=== PATIENT | male | born 1955 | race Caucasian/White ===

== ENCOUNTER 2023-02-20 15:27 | Outpatient (OUT) | payer MEDICARE, SELFPAY ==
[2023-02-20 16:12] LABS: Basophils Percent Auto 0.6 % (0.2-2.0); Eosinophils Absolute Auto 0.1 10^3/uL (0.0-0.7); Eosinophils Percent Auto 1.7 % (0.9-7.0); Hematocrit 40.8 % (42.0-54.0); Hemoglobin 14.1 g/dL (14.0-18.0); Immature Granulocytes Abs Auto 0.01 10^3/uL (0.00-0.03); Immature Granulocytes Pct Auto 0.3 % (0.0-0.5); Lymphocytes Absolute Auto 0.8 10^3/uL (1.2-3.8); Lymphocytes Percent Auto 23.4 % (20.5-60.0); Mean Corpuscular HGB Conc 34.6 g/dL (29.9-35.2); Mean Corpuscular Hemoglobin 32.1 pg (25.9-34.0); Mean Corpuscular Volume 92.9 fL (80.0-94.0); Mean Platelet Volume 9.2 fL (9.5-13.5); Monocytes Absolute Auto 0.3 10^3/uL (0.3-0.8); Monocytes Percent Auto 7.1 % (1.7-12.0); Neutrophils Absolute Auto 2.4 10^3/uL (1.4-6.5); Neutrophils Percent Auto 66.9 % (43.0-75.0); Platelet Count 122 10^3/uL (150-450); Red Blood Count 4.39 10^6/uL (4.70-6.10); Red Cell Distribution Width 13.2 % (11.0-15.0); White Blood Count 3.5 10^3/uL (4.0-11.0)
[2023-02-20 16:40] LABS: Anion Gap 13.3; BUN Creatinine Ratio 17.6; Calcium 9.2 mg/dL (8.5-10.1); Chloride 105 mmol/L (98-107); Estimated GFR (African America >60 (>=60); Estimated GFR (Non-African Ame >60 (>=60); Glucose 113 mg/dL (74-106); Potassium 4.3 mmol/L (3.5-5.1); Sodium 139 mmol/L (136-145)
[2023-02-20 16:57] LABS: Prostate Specific Antigen Scrn 1.01 ng/mL (<=4.00)
== END 2023-02-20 15:28 | disposition home or self-care (01) ==
LOC: LAB 15:32
PROVIDERS: PCP Internal Medicine; Visit Provider Internal Medicine
DX: Z00.00 Encounter for general adult medical examination without abnormal findings (principal); Z12.5 Encounter for screening for malignant neoplasm of prostate; Z79.899 Other long term (current) drug therapy
CPT/HCPCS: 36415; 80048; 85025; G0103

== ENCOUNTER 2023-06-10 13:54 | Outpatient (OUT) | payer MEDICARE, SELFPAY ==
[2023-06-10 14:20] LABS: Basophils Percent Auto 0.7 % (0.2-2.0); Eosinophils Absolute Auto 0.1 10^3/uL (0.0-0.7); Eosinophils Percent Auto 1.3 % (0.9-7.0); Hematocrit 41.4 % (42.0-54.0); Hemoglobin 14.2 g/dL (14.0-18.0); Immature Granulocytes Abs Auto 0.01 10^3/uL (0.00-0.03); Immature Granulocytes Pct Auto 0.2 % (0.0-0.5); Lymphocytes Percent Auto 22.1 % (20.5-60.0); Mean Corpuscular HGB Conc 34.3 g/dL (29.9-35.2); Mean Corpuscular Hemoglobin 32.5 pg (25.9-34.0); Mean Corpuscular Volume 94.7 fL (80.0-94.0); Mean Platelet Volume 8.9 fL (9.5-13.5); Monocytes Absolute Auto 0.3 10^3/uL (0.3-0.8); Monocytes Percent Auto 6.8 % (1.7-12.0); Neutrophils Absolute Auto 3.1 10^3/uL (1.4-6.5); Neutrophils Percent Auto 68.9 % (43.0-75.0); Platelet Count 156 10^3/uL (150-450); Red Blood Count 4.37 10^6/uL (4.70-6.10); Red Cell Distribution Width 12.4 % (11.0-15.0); White Blood Count 4.5 10^3/uL (4.0-11.0)
== END 2023-06-10 13:55 | disposition home or self-care (01) ==
LOC: LAB 13:55
PROVIDERS: PCP Internal Medicine; Visit Provider Internal Medicine
DX: D69.6 Thrombocytopenia, unspecified (principal)
CPT/HCPCS: 36415; 85025

== ENCOUNTER 2023-10-10 13:39 | Outpatient (OUT) | payer MEDICARE, SELFPAY ==
[2023-10-10 14:14] LABS: Eosinophils Absolute Auto 0.1 10^3/uL (0.0-0.7); Hematocrit 42.4 % (42.0-54.0); Hemoglobin 14.2 g/dL (14.0-18.0); Immature Granulocytes Abs Auto 0.01 10^3/uL (0.00-0.03); Immature Granulocytes Pct Auto 0.2 % (0.0-0.5); Lymphocytes Percent Auto 24.6 % (20.5-60.0); Mean Corpuscular HGB Conc 33.5 g/dL (29.9-35.2); Mean Corpuscular Hemoglobin 31.7 pg (25.9-34.0); Mean Corpuscular Volume 94.6 fL (80.0-94.0); Monocytes Absolute Auto 0.3 10^3/uL (0.3-0.8); Monocytes Percent Auto 6.6 % (1.7-12.0); Neutrophils Absolute Auto 2.7 10^3/uL (1.4-6.5); Neutrophils Percent Auto 65.6 % (43.0-75.0); Platelet Count 130 10^3/uL (150-450); Red Blood Count 4.48 10^6/uL (4.70-6.10); Red Cell Distribution Width 13.2 % (11.0-15.0); White Blood Count 4.1 10^3/uL (4.0-11.0)
[2023-10-10 14:44] LABS: Thyroid Stimulating Hormone 1.282 uIU/mL (0.358-3.740)
[2023-10-10 15:27] LABS: Alanine Aminotransferase 38 U/L (16-63); Albumin Globulin Ratio 1.1; Albumin Level 3.9 g/dL (3.4-5.0); Alkaline Phosphatase 81 U/L (46-116); Anion Gap 17.4; Aspartate Amino Transferase 17 U/L (15-37); Bilirubin Total 0.6 mg/dL (0.2-1.0); Calcium 9.1 mg/dL (8.5-10.1); Carbon Dioxide 22.8 mmol/L (21.0-32.0); Chloride 109 mmol/L (98-107); Estimated GFR (African America >60 (>=60); Estimated GFR (Non-African Ame >60 (>=60); Globulin 3.6 g/dL; Glucose 115 mg/dL (74-106); Potassium 4.2 mmol/L (3.5-5.1); Sodium 145 mmol/L (136-145); Total Protein 7.5 g/dL (6.4-8.2)
[2023-10-11 16:09] LABS: Alpha-1-Globulin 0.2 g/dL (0.0-0.4); Alpha-2-Globulin 0.7 g/dL (0.4-1.0); Free Kappa Lt Chains,S 23.8 mg/L (3.3-19.4); Free Lambda Lt Chains,S 15.2 mg/L (5.7-26.3); Gamma Globulin 0.8 g/dL (0.4-1.8); Immunoglobulin A, Qn, Serum 215 mg/dL (61-437); Immunoglobulin G, Qn, Serum 976 mg/dL (603-1613); Immunoglobulin M, Qn, Serum 31 mg/dL (20-172); Kappa/Lambda Ratio,S 1.57 (0.26-1.65); Protein, Total 6.7 g/dL (6.0-8.5)
== END 2023-10-10 13:40 | disposition home or self-care (01) ==
LOC: LAB 13:44
PROVIDERS: PCP Internal Medicine; Visit Provider Internal Medicine
DX: D69.6 Thrombocytopenia, unspecified (principal); R20.8 Other disturbances of skin sensation; Z79.899 Other long term (current) drug therapy; R53.83 Other fatigue
CPT/HCPCS: 36415; 80053; 82607; 82728; 82784; 83521; 84155; 84165; 84443; 85025; 86334

== ENCOUNTER 2023-10-28 13:54 | Outpatient (OUT) | payer MEDICARE, SELFPAY ==
[2023-10-28 14:24] LABS: Basophils Percent Auto 0.5 % (0.2-2.0); Eosinophils Absolute Auto 0.1 10^3/uL (0.0-0.7); Eosinophils Percent Auto 1.4 % (0.9-7.0); Hematocrit 42.8 % (42.0-54.0); Hemoglobin 14.5 g/dL (14.0-18.0); Immature Granulocytes Abs Auto 0.02 10^3/uL (0.00-0.03); Immature Granulocytes Pct Auto 0.5 % (0.0-0.5); Lymphocytes Absolute Auto 0.9 10^3/uL (1.2-3.8); Lymphocytes Percent Auto 21.4 % (20.5-60.0); Mean Corpuscular HGB Conc 33.9 g/dL (29.9-35.2); Mean Corpuscular Hemoglobin 31.5 pg (25.9-34.0); Mean Corpuscular Volume 92.8 fL (80.0-94.0); Monocytes Absolute Auto 0.3 10^3/uL (0.3-0.8); Monocytes Percent Auto 6.9 % (1.7-12.0); Neutrophils Absolute Auto 2.9 10^3/uL (1.4-6.5); Neutrophils Percent Auto 69.3 % (43.0-75.0); Platelet Count 126 10^3/uL (150-450); Red Blood Count 4.61 10^6/uL (4.70-6.10); Red Cell Distribution Width 13.2 % (11.0-15.0); White Blood Count 4.2 10^3/uL (4.0-11.0)
[2023-10-28 14:41] LABS: C Reactive Protein <0.50 mg/dL (<=0.50)
[2023-10-28 14:46] LABS: Erythrocyte Sedimentation Rate 27 mm/hr (<=20)
[2023-10-28 15:08] LABS: Percent Iron Saturation 36.9 %
[2023-10-29 16:09] LABS: Alpha-1-Globulin 0.2 g/dL (0.0-0.4); Alpha-2-Globulin 0.7 g/dL (0.4-1.0); Free Kappa Lt Chains,S 24.1 mg/L (3.3-19.4); Free Lambda Lt Chains,S 14.7 mg/L (5.7-26.3); Gamma Globulin 0.8 g/dL (0.4-1.8); Immunoglobulin A, Qn, Serum 219 mg/dL (61-437); Immunoglobulin G, Qn, Serum 927 mg/dL (603-1613); Immunoglobulin M, Qn, Serum 34 mg/dL (20-172); Kappa/Lambda Ratio,S 1.64 (0.26-1.65); Protein, Total 6.8 g/dL (6.0-8.5)
== END 2023-10-28 13:55 | disposition home or self-care (01) ==
LOC: LAB 13:54
PROVIDERS: PCP Internal Medicine; Visit Provider Internal Medicine
DX: R79.89 Other specified abnormal findings of blood chemistry (principal); D69.6 Thrombocytopenia, unspecified; R20.8 Other disturbances of skin sensation; Z79.899 Other long term (current) drug therapy; R53.83 Other fatigue
CPT/HCPCS: 36415; 82728; 82784; 83521; 83540; 83550; 84155; 84165; 85025; 85652; 86140; 86334

== ENCOUNTER 2023-11-15 07:24 | Outpatient (RCR) | payer MEDICARE, SELFPAY ==
[2023-11-12 15:49] LABS: Basophils Percent Auto 0.5 % (0.2-2.0); Hematocrit 43.8 % (42.0-54.0); Hemoglobin 14.7 g/dL (14.0-18.0); Immature Granulocytes Abs Auto 0.03 10^3/uL (0.00-0.03); Immature Granulocytes Pct Auto 0.8 % (0.0-0.5); Lymphocytes Absolute Auto 0.9 10^3/uL (1.2-3.8); Lymphocytes Percent Auto 21.4 % (20.5-60.0); Mean Corpuscular HGB Conc 33.6 g/dL (29.9-35.2); Mean Corpuscular Hemoglobin 31.7 pg (25.9-34.0); Mean Corpuscular Volume 94.4 fL (80.0-94.0); Mean Platelet Volume 8.9 fL (9.5-13.5); Monocytes Absolute Auto 0.3 10^3/uL (0.3-0.8); Monocytes Percent Auto 6.5 % (1.7-12.0); Neutrophils Absolute Auto 2.8 10^3/uL (1.4-6.5); Neutrophils Percent Auto 69.8 % (43.0-75.0); Platelet Count 126 10^3/uL (150-450); Red Blood Count 4.64 10^6/uL (4.70-6.10); Red Cell Distribution Width 13.2 % (11.0-15.0)
[2023-11-12 16:30] LABS: Lactate Dehydrogenase 240 U/L (85-227)
[2023-11-14 16:10] LABS: Albumin 4.1 g/dL (2.9-4.4); Alpha-1-Globulin 0.2 g/dL (0.0-0.4); Alpha-2-Globulin 0.7 g/dL (0.4-1.0); Free Lambda Lt Chains,S 14.2 mg/L (5.7-26.3); Gamma Globulin 0.8 g/dL (0.4-1.8); Immunoglobulin A, Qn, Serum 220 mg/dL (61-437); Immunoglobulin G, Qn, Serum 961 mg/dL (603-1613); Immunoglobulin M, Qn, Serum 29 mg/dL (20-172); Kappa/Lambda Ratio,S 1.69 (0.26-1.65); Protein, Total 6.9 g/dL (6.0-8.5)
[2023-11-15 10:02] VITALS: BP 145/79; PULSE 73; RESP 18; TEMP 36.3; O2SAT 97
--- NOTE | 2023-11-15 10:08 | PC.NURSE ---
0950 Arrival ambulatory, vital signs obtained. explained procedure, verbalizes understanding 1005 phlebotomy initiated RACF 1020 500 ml obtained without difficulty, tolerated well. cottonball and coban applied to venipuncture site. 1021 given water and crackers post phlebotomy, vs obtainned 119/82 P 76 R 18 offers no complaints.
--- NOTE | 2023-11-15 10:41 | PC.NURSE ---
1040 stands, ambulates, denies dizziness/light headedness. Released ambulatory
== END 2023-11-24 23:59 | disposition home or self-care (01) ==
LOC: INF 07:24
PROVIDERS: PCP Internal Medicine; Visit Provider Internal Medicine Hematology & Oncology
DX: D69.6 Thrombocytopenia, unspecified (principal); R79.89 Other specified abnormal findings of blood chemistry; E83.119 Hemochromatosis, unspecified; Z87.891 Personal history of nicotine dependence; I48.91 Unspecified atrial fibrillation; K21.9 Gastro-esophageal reflux disease without esophagitis
CPT/HCPCS: 36415; 81256; 82784; 83521; 83615; 84155; 84165; 85025; 86334; 99195; G0463

== ENCOUNTER 2023-12-05 08:37 | Outpatient (OUT) | payer MEDICARE, SELFPAY | END 2023-12-05 08:38 | disposition home or self-care (01) | LOC: LAB 08:37 | PROVIDERS: PCP Internal Medicine; Visit Provider Internal Medicine Hematology & Oncology | DX: R79.89 Other specified abnormal findings of blood chemistry (principal); D69.6 Thrombocytopenia, unspecified | CPT/HCPCS: 36415; 82728; 83540; 83550 ==

== ENCOUNTER 2023-12-20 07:34 | Outpatient (RCR) | payer MEDICARE, SELFPAY ==
[2023-12-06 09:50] VITALS: BP 123/70; PULSE 67; TEMP 37.1; O2SAT 98
[2023-12-06 10:14] VITALS: BP 100/65; PULSE 66; TEMP 37.1; O2SAT 98
[2023-12-06 11:05] VITALS: BP 101/66; PULSE 68; TEMP 36.9; O2SAT 97
--- NOTE | 2023-12-06 12:40 | PC.NURSE ---
0950: Pt. to [facility] amb. for scheduled therapeutic phlebotomy. Seated in recliner. VSS. Denies questions about T.P.
--- NOTE | 2023-12-06 13:19 | PC.NURSE ---
1003: #16 gauge IV initiated to left ac on first attempt. Connected too dry collection bag. Blood immediately begins to drain easily into bag. Pt. given ball to squeeze intermittently. 1014: 502 cc blood collected into dry bag. IV d/c'd, pressure to site. Pt. relays feeling woosy . Reclines back in chair. Given apple juice and snack. 1030: Pt. cont. to rest quietly in chair. Ate snack. Denies needs or c/o. 1105: Pt. without c/o. VSS. D/c'd amb. to home.
[2023-12-10 12:04] LABS: Basophils Percent Auto 0.8 % (0.2-2.0); Eosinophils Absolute Auto 0.1 10^3/uL (0.0-0.7); Eosinophils Percent Auto 1.4 % (0.9-7.0); Hematocrit 37.1 % (42.0-54.0); Hemoglobin 12.2 g/dL (14.0-18.0); Immature Granulocytes Abs Auto 0.02 10^3/uL (0.00-0.03); Immature Granulocytes Pct Auto 0.6 % (0.0-0.5); Lymphocytes Absolute Auto 1.1 10^3/uL (1.2-3.8); Lymphocytes Percent Auto 30.1 % (20.5-60.0); Mean Corpuscular HGB Conc 32.9 g/dL (29.9-35.2); Mean Corpuscular Hemoglobin 31.4 pg (25.9-34.0); Mean Corpuscular Volume 95.6 fL (80.0-94.0); Mean Platelet Volume 9.4 fL (9.5-13.5); Monocytes Absolute Auto 0.2 10^3/uL (0.3-0.8); Monocytes Percent Auto 5.8 % (1.7-12.0); Neutrophils Absolute Auto 2.2 10^3/uL (1.4-6.5); Neutrophils Percent Auto 61.3 % (43.0-75.0); Platelet Count 130 10^3/uL (150-450); Red Blood Count 3.88 10^6/uL (4.70-6.10); Red Cell Distribution Width 13.2 % (11.0-15.0); White Blood Count 3.6 10^3/uL (4.0-11.0)
[2023-12-10 12:30] LABS: Alanine Aminotransferase 33 U/L (16-63); Albumin Globulin Ratio 1.2; Albumin Level 3.9 g/dL (3.4-5.0); Alkaline Phosphatase 74 U/L (46-116); Anion Gap 15.7; Aspartate Amino Transferase 18 U/L (15-37); BUN Creatinine Ratio 13.4; Bilirubin Total 0.7 mg/dL (0.2-1.0); Calcium 9.1 mg/dL (8.5-10.1); Carbon Dioxide 23.3 mmol/L (21.0-32.0); Chloride 106 mmol/L (98-107); Estimated GFR (African America >60 (>=60); Estimated GFR (Non-African Ame >60 (>=60); Globulin 3.2 g/dL; Glucose 125 mg/dL (74-106); Sodium 141 mmol/L (136-145); Total Protein 7.1 g/dL (6.4-8.2)
[2023-12-20 13:27] VITALS: BP 115/74; PULSE 63; TEMP 36.6; O2SAT 95
[2023-12-20 13:34] LABS: Percent Iron Saturation 31.6 %
== END 2023-12-24 23:59 | disposition home or self-care (01) ==
LOC: INF 07:34
PROVIDERS: PCP Internal Medicine; Visit Provider Internal Medicine Hematology & Oncology
DX: E83.119 Hemochromatosis, unspecified (principal); R79.89 Other specified abnormal findings of blood chemistry; D69.6 Thrombocytopenia, unspecified
CPT/HCPCS: 36415; 80053; 82728; 83540; 83550; 85025; 99195; G0463

== ENCOUNTER 2024-01-17 07:25 | Outpatient (RCR) | payer MEDICARE, SELFPAY ==
[2024-01-03 12:10] VITALS: BP 107/70; PULSE 63; TEMP 36.8; O2SAT 95
[2024-01-03 12:49] LABS: Percent Iron Saturation 28.9 %
--- NOTE | 2024-01-03 13:39 | PC.NURSE ---
1315 ferratin levels received from lab. 1318 phlebotomy initiated thru rac #14 ga IV catheter 1329 Total of 500 ml removed during phlebotomy, patient drinking fluids and snacking since arrival. 1330 IV dc'dRACF, cottonball and coban applied to control any bleeding. Tolerated well post phlebotomy vs Bp 113/73 p 63 R 18 T 98.1 temporal. 1345 eating snack and drinking fluids. Labs reviewed with patient copy to patient.
[2024-01-07 14:51] LABS: Basophils Percent Auto 0.5 % (0.2-2.0); Eosinophils Absolute Auto 0.1 10^3/uL (0.0-0.7); Eosinophils Percent Auto 1.6 % (0.9-7.0); Hematocrit 35.8 % (42.0-54.0); Immature Granulocytes Abs Auto 0.02 10^3/uL (0.00-0.03); Immature Granulocytes Pct Auto 0.5 % (0.0-0.5); Lymphocytes Absolute Auto 0.7 10^3/uL (1.2-3.8); Lymphocytes Percent Auto 18.6 % (20.5-60.0); Mean Corpuscular HGB Conc 33.5 g/dL (29.9-35.2); Mean Corpuscular Hemoglobin 32.2 pg (25.9-34.0); Mean Platelet Volume 8.9 fL (9.5-13.5); Monocytes Absolute Auto 0.3 10^3/uL (0.3-0.8); Monocytes Percent Auto 7.6 % (1.7-12.0); Neutrophils Absolute Auto 2.7 10^3/uL (1.4-6.5); Neutrophils Percent Auto 71.2 % (43.0-75.0); Platelet Count 127 10^3/uL (150-450); Red Blood Count 3.73 10^6/uL (4.70-6.10); Red Cell Distribution Width 13.4 % (11.0-15.0); White Blood Count 3.8 10^3/uL (4.0-11.0)
[2024-01-17 12:00] VITALS: BP 119/78; PULSE 68; TEMP 36.4; O2SAT 97
[2024-01-17 12:12] LABS: Basophils Percent Auto 0.5 % (0.2-2.0); Eosinophils Absolute Auto 0.1 10^3/uL (0.0-0.7); Eosinophils Percent Auto 1.4 % (0.9-7.0); Hematocrit 36.9 % (42.0-54.0); Hemoglobin 12.3 g/dL (14.0-18.0); Immature Granulocytes Abs Auto 0.03 10^3/uL (0.00-0.03); Immature Granulocytes Pct Auto 0.8 % (0.0-0.5); Lymphocytes Absolute Auto 0.9 10^3/uL (1.2-3.8); Lymphocytes Percent Auto 25.2 % (20.5-60.0); Mean Corpuscular HGB Conc 33.3 g/dL (29.9-35.2); Mean Corpuscular Hemoglobin 31.9 pg (25.9-34.0); Mean Corpuscular Volume 95.8 fL (80.0-94.0); Mean Platelet Volume 8.9 fL (9.5-13.5); Monocytes Absolute Auto 0.3 10^3/uL (0.3-0.8); Neutrophils Absolute Auto 2.4 10^3/uL (1.4-6.5); Neutrophils Percent Auto 65.1 % (43.0-75.0); Platelet Count 126 10^3/uL (150-450); Red Blood Count 3.85 10^6/uL (4.70-6.10); Red Cell Distribution Width 13.3 % (11.0-15.0); White Blood Count 3.7 10^3/uL (4.0-11.0)
[2024-01-17 12:32] LABS: Percent Iron Saturation 30.8 %
--- NOTE | 2024-01-17 12:43 | PC.NURSE ---
1200: Pt. to [facility] amb. for therapeutic phlebotomy. Seated in recliner. VSS. Blood drawn for ordered labs. Pt. relaxes back in recliner waiting for lab results. Given water. Denies needs.
[2024-01-17 13:25] VITALS: BP 132/70; PULSE 58; O2SAT 96
--- NOTE | 2024-01-17 13:35 | PC.NURSE ---
1300: Ferritin resulted, ok to proceed with therapeutic phlebotomy per. ordered parameters. 1310: Therapeutic phlebotomy initiated at this time. per. Fatmata Davies RN using #16 gauge IV. Blood flowing easily. 1325: Blood ceases flowing easily, small raised, hard area observed at insertion site of iv. Pt. relays wanting to stop anyway due to feeling out of it last time. 326cc of blood removed. VSS. 1330: Pt. given piece of pie and water. Pt. mid fowlers position.
[2024-01-17 13:55] VITALS: BP 134/62; PULSE 61; O2SAT 98
--- NOTE | 2024-01-17 13:55 | PC.NURSE ---
Pt. ate pie without c/o n/v. VSS. Relays feeling ok, just tired. Instructed pt. to take it easy today and rest with plenty of fluids. Pt. relays understanding.
--- NOTE | 2024-01-17 14:34 | PC.NURSE ---
1410: Pt. d/c'd amb. to home.
== END 2024-01-24 23:59 | disposition home or self-care (01) ==
LOC: INF 07:25
PROVIDERS: PCP Internal Medicine; Visit Provider Internal Medicine Hematology & Oncology
DX: E83.119 Hemochromatosis, unspecified (principal); R79.89 Other specified abnormal findings of blood chemistry; D69.6 Thrombocytopenia, unspecified; Z87.891 Personal history of nicotine dependence
CPT/HCPCS: 36415; 82728; 83540; 83550; 85025; 99195; G0463

== ENCOUNTER 2024-02-14 07:18 | Outpatient (RCR) | payer MEDICARE, SELFPAY ==
[2024-01-30 16:02] LABS: Percent Iron Saturation 25.9 %
--- NOTE | 2024-01-31 14:25 | PC.NURSE ---
1255 Arrival ambulatory to chair 3. patient states he has been feeling terrible, states he feels foggy in his head all the time at times over last several months feels as though he is going to pass out relates to this happening frequently as well as he said he finds himself walking around at different places and doesn't know how he go there etc. Numerous other concerns regarding his health. he states I was drinking a cup of coffee because I heard it is good for lowering iron, but states some of these symptoms started after he started drinking coffee, so he stopped. Explained to him he needs to make appt with his PCP to get his concerns addressed, I stressed the need for him to follow-up with regularly scheduled doctors appts to get his concerns addressed, explained some conditions require a more indepth investigation, and he had to be the one to follow and be consistent with approching physicians to get his concerns met. VS obtained. #16 ga IV initiated per Elian x2 attempts unsucessfull. 1315 # 16gauge initiated RACF excellent blood return noted. phlebotomy initiated. 1325 phlebotomy completed, 500 ml obtained. BP 110/74 T 98.2 P 63 R 18. Given water to drink, declines food. 1340 113/74 P 67 R 16 T 98.0 temporal Spo2 95% on room air. Patient voicing many conerns about health and finances, stating he's getting bills from the hospital he cannot afford. called patient financial serices, who will come down and speak with patient. Patient denies light headedness gait steady, ambulated around treatment area. Encouraged patient to make appt with PCP to discuss concerns, if he felt he needed to be seen then he should go to the Emergency department. vervbalizes understanding 1400 Financial staff in and speaks with patient. completed a financial assistance form, patient stated he felt better after speaking with them about his finances. 1410 Discharged ambulatory, gait steady
[2024-02-13 15:21] LABS: Basophils Percent Auto 0.5 % (0.2-2.0); Eosinophils Absolute Auto 0.1 10^3/uL (0.0-0.7); Eosinophils Percent Auto 1.4 % (0.9-7.0); Hematocrit 39.3 % (42.0-54.0); Immature Granulocytes Abs Auto 0.01 10^3/uL (0.00-0.03); Immature Granulocytes Pct Auto 0.3 % (0.0-0.5); Lymphocytes Absolute Auto 0.8 10^3/uL (1.2-3.8); Lymphocytes Percent Auto 21.4 % (20.5-60.0); Mean Corpuscular HGB Conc 33.1 g/dL (29.9-35.2); Mean Corpuscular Volume 93.6 fL (80.0-94.0); Mean Platelet Volume 9.2 fL (9.5-13.5); Monocytes Absolute Auto 0.3 10^3/uL (0.3-0.8); Neutrophils Absolute Auto 2.6 10^3/uL (1.4-6.5); Neutrophils Percent Auto 69.4 % (43.0-75.0); Platelet Count 143 10^3/uL (150-450); Red Cell Distribution Width 12.8 % (11.0-15.0); White Blood Count 3.7 10^3/uL (4.0-11.0)
[2024-02-13 16:17] LABS: Percent Iron Saturation 19.1 %
== END 2024-02-23 23:59 | disposition home or self-care (01) ==
LOC: INF 07:18
PROVIDERS: PCP Internal Medicine; Visit Provider Internal Medicine Hematology & Oncology
DX: E83.119 Hemochromatosis, unspecified (principal); R79.89 Other specified abnormal findings of blood chemistry; D69.6 Thrombocytopenia, unspecified; D72.819 Decreased white blood cell count, unspecified; D64.9 Anemia, unspecified
CPT/HCPCS: 36415; 82728; 83540; 83550; 85025; 99195

== ENCOUNTER 2024-02-25 07:39 | Outpatient (RCR) | payer MEDICARE, SELFPAY | END 2024-02-25 14:45 | disposition home or self-care (01) | LOC: INF 07:39 | PROVIDERS: PCP Internal Medicine; Visit Provider Internal Medicine Hematology & Oncology | DX: R79.89 Other specified abnormal findings of blood chemistry (principal); D69.6 Thrombocytopenia, unspecified; E83.119 Hemochromatosis, unspecified; D72.819 Decreased white blood cell count, unspecified; D64.9 Anemia, unspecified; Z12.5 Encounter for screening for malignant neoplasm of prostate; E78.00 Pure hypercholesterolemia, unspecified; R73.01 Impaired fasting glucose; G62.9 Polyneuropathy, unspecified | CPT/HCPCS: 36415; 80053; 80061; 83036; G0103; G0463 ==

== ENCOUNTER 2024-02-25 13:57 | Outpatient (OUT) | payer MEDICARE, SELFPAY ==
--- OUTSIDE RECORDS SUMMARY | 2024-02-25 14:01 | XMS_ITS | CCD ---
Author Organization [facility] Care Team Providers Care Rfid Technician Name Role Phone JOE, DR SHORT Primary Care Unavailable REQUEST, DR STREETER LISTED Attending Unavaila ble REQUEST, DR STREETER LISTED Consulting Unavaila ble REQUEST, DR STREETER LISTED Admitting Unavaila ble BALL, DR SHORT Primary Care Unavailable BALL, DR SHORT Admitting Unavailable BALL, DR SHORT Attending Unavailable BALL, DR SHORT Consulting Unavailable BALL, DR SHORT Primary Care Unavailable BALL, DR SHORT Admitting Unavailable BALL, DR SHORT Attending Unavailable BALL, DR SHORT Consulting Unavailable Ball, Han Unavailable Peggy Rivas Attending Peggy Lugo Admitting Unavailable Joe, Han Primary Care Unavailable Joe, DO Short Primary Care Provider [phone] MD Peggy Rivas Attending Provider Allergies Allergy Classification Reported Allergen(s) Allergy Type Date of Onset Reaction(s) Facility (6 sources) Penicillin Drug Allergy Unknown [facility] Other (3 sources) patient allergy list reviewed by nurse or physicia Propensity to adverse reactions 12-24-19 Comment:Done [facility] Other (3 sources) Substance with penicillin structure and antibacterial mechanism of action (substance) Drug allergy Unknown [facility] Other (1 source) Penicillins Drug allergy (disorder) 10-30-19 24 [facility] Repository Medications Current Medications Medication Drug Class(es) Dates Sig (Normalized) Sig (Original) sertraline 100 mg oral tablet (10 sources) Serotonin Reuptake Inhibitor Start: 11-24-2023 End: 02-20-2024 take 200 mg by mouth once daily Sertraline Active 200 MG PO Daily 180 90 February 20, 2024 10:11am Start: 10-29-2023 End: 03-31-2024 take 100 mg by mouth twice daily Sertraline Discontinued 100 MG PO Twice daily October 29, 2023 1:00am November 24, 2023 7:58pm take 2 tablets by mo uth every twenty-four hours Sertraline HCl 100 MG 2 tablet Orally qd for 30 days Good RX Active take 1 tablet by faina th every twelve hours Sertraline HCl 100 MG 1 tablet Orally twice a day for 30 days Good RX Active Problems Active Problems Problem Classification Problem Date Documented Da te Episodic/Chronic Anxiety disorders (16 sources) Generalized anxiety disorder; Translations: [Generalized anxiety disorder] Chronic Coagulation and hemorrhagic disorders (14 sources) Thrombocytopenia, unspecified; Translations: [Thrombocytopenic disorder] Onset: 02-09-2022 Chronic Deficiency and other anemia (3 sources) Anemia; Translations: [Anemia, unspecified] Episodic Diabetes mellitus without complication (4 sources) Impaired fasting glycemia; Translations: [Impaired fasting glucose] 10-28-2023 Episodic Disorders of lipid metabolism (1 source) Hypercholesterolemi a; Translations: [Pure hypercholesterolemi a, unspecified] 02-20-2024 Chronic Hyperplasia of prostate (17 sources) Benign prostatic hyperplasia with lower urinary tract symptoms; Translations: [Nocturia due to benign prostatic hypertrophy] Onset: 06-23-2018 Chronic Mood disorders (3 sources) Depression; Translations: [Depression, unspecified] Onset: 05-27-2018 Chronic Other aftercare (5 sources) Other oysterman (current) drug therapy; Translations: [[facility] CURRENT DRUG THERAPY] Onset: 02-08-2022 Episodic Other aftercare (3 sources) Long-term current use of drug therapy; Translations: [Other oysterman (current) drug therapy] Episodic Other ear and sense organ disorders (3 sources) Bilateral tinnitus; Translations: [Tinnitus, bilateral] Episodic Other gastrointestinal disorders (2 sources) Dysphagia; Translations: [Dysphagia, unspecified] 10-30-2023 Episodic Other gastrointestinal disorders (1 source) Dysphagia, unspecified; Translations: [Dysphagia, unspecified] 10-30-2023 Episodic Other injuries and conditions due to external causes (3 sources) History of fall; Translations: [History of falling] Episodic Other nervous system disorders (2 sources) Polyneuropathy; Translations: [Polyneuropathy, unspecified] 10-28-2023 Chronic Other nervous system disorders (1 source) Polyneuropathy, unspecified; Translations: [Unspecified hereditary and idiopathic peripheral neuropathy] 02-20-2024 Chronic Other nervous system disorders (3 sources) Paresthesia; Translations: [Paresthesia of skin] Episodic Other nervous system disorders (1 source) Abnormal sensation; Translations: [Other disturbances of skin sensation] 10-09-2023 Episodic Other nervous system disorders (1 source) Other disturbances of skin sensation; Translations: [Disturbance of skin sensation] 10-30-2023 Episodic Other nutritional; endocrine; and metabolic disorders (3 sources) Simple obesity ; Translations: [Other obesity due to excess calories] Chronic Other nutritional; endocrine; and metabolic disorders (3 sources) Obesity; Translations: [Obesity, unspecified] Chronic Other nutritional; endocrine; and metabolic disorders (3 sources) Obese class I; Translations: [Body mass index 32.0-32.9, adult] Onset: 12-24-2018 Chronic Other nutritional; endocrine; and metabolic disorders (1 source) Hemochromatosis; Translations: [Hemochromatosis, unspecified] 02-18-2024 Chronic Other nutritional; endocrine; and metabolic disorders (1 source) Hemochromatosis, unspecified; Translations: [Other hemochromatosis] 02-20-2024 Chronic Other nutritional; endocrine; and metabolic disorders (8 sources) Overweight; Translations: [Overweight] 10-29-2023 Episodic Other nutritional; endocrine; and metabolic disorders (1 source) Overweight Episodic Other screening for suspected conditions (not mental disorders or infectious disease) (10 sources) Encounter for screening for malignant neoplasm of prostate; Translations: [Encounter for screening for malignant neoplasm of colon] Onset: 02-09-2022 Episodic Spondylosis; intervertebral disc disorders; other back problems (9 sources) Lumbar spondylosis; Translations: [Spondylosis without myelopathy or radiculopathy, lumbar region] Chronic Substance-related disorders (9 sources) Tobacco dependence in remission; 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, cigarettes, in remission] Chronic Unclassified (3 sources) Exposure to acute respiratory syndrome coronavirus 2; Translations: [Contact with and (suspected) exposure to COVID-19] Past or Other Problems Problem Classification Problem Date Documented Da te Episodic/Chronic Deficiency and other anemia (4 sources) Anemia, unspecified; Translations: [ANEMIA UNSPECIFIED] Onset: 05-17-2021 Episodic Genitourinary symptoms and ill-defined conditions (4 sources) Nocturia; Translations: [Nocturia] Onset: 05-27-2018 Episodic Other skin disorders (6 sources) Alopecia; Translations: [Other alopecia] Onset: 05-27-2018 Episodic Spondylosis; intervertebral disc disorders; other back problems (3 sources) Low back pain; Translations: [Lumbago] Onset: 05-27-2018 Episodic Results Test Name Value Interpretation Reference Range Facility Basophils Auto (Bld) [#/Vol] on 02-13-2024 Basophils (Bld) [#/Vol] 0.0 10 3/uL 0.0-0.1 [facility] Basophils/100 WBC Auto (Bld) on 02-13-2024 Basophils/100 WBC (Bld) 0.5 % 0.2-2.0 [facility] Eosinophils/100 WBC Auto (Bl d)on 02-13-2024 Eosinophils/100 WBC (Bld) 1.4 % 0.9-7.0 [facility] Erythrocyte distribution wid th Auto (RBC) [Ratio]on 02-13-2024 Erythrocyte distribution width (RBC) [Ratio] 12.8 % 11.0-15.0 [facility] Hematocrit Auto (Bld) [Volum e fraction]on 02-13-2024 Hematocrit (Bld) [Volume fraction] 39.3 % Low 42.0-54.0 [facility] Hemoglobin [Mass/volume] in Bloodon 02-13-2024 Hemoglobin (Bld) [Mass/Vol] 13.0 g/dL Low 14.0-18.0 [facility] Iron binding capacity [Mass/ volume] in Serum or Plasmaon 02-13-2024 Iron binding capacity [Mass/Vol] 346.0 ug/dL 250.0-450.0 [facility] Iron saturation [Mass Fracti on] in Serum or Plasmaon 02-13-2024 Iron saturation [Mass fraction] 19.1 % [facility] Laboratory - Chemistry and C hemistry - challengeon 02-13-2024 Ferritin [Mass/Vol] 98.0 ng/mL 26.0-388.0 [facility] Iron [Mass/Vol] 66.0 ug/dL 65.0-175.0 [facility] Laboratory - Hematology and Cell countson 02-13-2024 Immature granulocytes/100 WBC (Bld) 0.3 % 0.0-0.5 [facility] Leukocytes [#/volume] correc nohemy for nucleated erythrocytes in Blood by Automated counon 02-13-2024 WBC corrected for nucl RBC Auto (Bld) [#/Vol] 3.7 10 3/uL Low 4.0-11.0 [facility] Lymphocytes Auto (Bld) [#/Vo l]on 02-13-2024 Lymphocytes (Bld) [#/Vol] 0.8 10 3/uL Low 1.2-3.8 [facility] Lymphocytes/100 WBC Auto (Bl d)on 02-13-2024 Lymphocytes/100 WBC (Bld) 21.4 % 20.5-60.0 [facility] MCH Auto (RBC) [Entitic mass ]on 02-13-2024 MCH (RBC) [Entitic mass] 31.0 pg 25.9-34.0 [facility] MCHC Auto (RBC) [Mass/Vol]on 02-13-2024 MCHC (RBC) [Mass/Vol] 33.1 g/dL 29.9-35.2 [facility] MCV Auto (RBC) [Entitic vol] on 02-13-2024 MCV (RBC) [Entitic vol] 93.6 fL 80.0-94.0 [facility] Monocytes Auto (Bld) [#/Vol] on 02-13-2024 Monocytes (Bld) [#/Vol] 0.3 10 3/uL 0.3-0.8 [facility] Monocytes/100 WBC Auto (Bld) on 02-13-2024 Monocytes/100 WBC (Bld) 7.0 % 1.7-12.0 [facility] Neutrophils Auto (Bld) [#/Vo l]on 02-13-2024 Neutrophils (Bld) [#/Vol] 2.6 10 3/uL 1.4-6.5 [facility] Neutrophils/100 WBC Auto (Bl d)on 02-13-2024 Neutrophils/100 WBC (Bld) 69.4 % 43.0-75.0 [facility] No Panel Informationon 02-12 Eosinophils # (Auto) 0.1 10 3/uL 0.0-0.7 [facility] Immature Granulocyte # (Auto) 0.01 10 3/uL 0.00-0.03 [facility] Platelet mean volume Auto (B ld) [Entitic vol]on 02-13-2024 Platelet mean volume (Bld) [Entitic vol] 9.2 fL Low 9.5-13.5 [facility] Platelets Auto (Bld) [#/Vol] on 02-13-2024 Platelets (Bld) [#/Vol] 143 10 3/uL Low 150-450 [facility] RBC Auto (Bld) [#/Vol]on RBC (Bld) [#/Vol] 4.20 10 6/uL Low 4.70-6.10 [facility] Iron binding capacity [Mass/ volume] in Serum or Plasmaon 01-30-2024 Iron binding capacity [Mass/Vol] 324.0 ug/dL 250.0-450.0 [facility] Iron saturation [Mass Fracti on] in Serum or Plasmaon 01-30-2024 Iron saturation [Mass fraction] 25.9 % [facility] Laboratory - Chemistry and C hemistry - challengeon 01-30-2024 Ferritin [Mass/Vol] 165.0 ng/mL 26.0-388.0 [facility] Iron [Mass/Vol] 84.0 ug/dL 65.0-175.0 [facility] Basophils Auto (Bld) [#/Vol] on 01-17-2024 Basophils (Bld) [#/Vol] 0.0 10 3/uL 0.0-0.1 [facility] Basophils/100 WBC Auto (Bld) on 01-17-2024 Basophils/100 WBC (Bld) 0.5 % 0.2-2.0 [facility] Eosinophils/100 WBC Auto (Bl d)on 01-17-2024 Eosinophils/100 WBC (Bld) 1.4 % 0.9-7.0 [facility] Erythrocyte distribution wid th Auto (RBC) [Ratio]on 01-17-2024 Erythrocyte distribution width (RBC) [Ratio] 13.3 % 11.0-15.0 [facility] Hematocrit Auto (Bld) [Volum e fraction]on 01-17-2024 Hematocrit (Bld) [Volume fraction] 36.9 % Low 42.0-54.0 [facility] Hemoglobin [Mass/volume] in Bloodon 01-17-2024 Hemoglobin (Bld) [Mass/Vol] 12.3 g/dL Low 14.0-18.0 [facility] Iron binding capacity [Mass/ volume] in Serum or Plasmaon 01-17-2024 Iron binding capacity [Mass/Vol] 321.0 ug/dL 250.0-450.0 [facility] Iron saturation [Mass Fracti on] in Serum or Plasmaon 01-17-2024 Iron saturation [Mass fraction] 30.8 % [facility] Laboratory - Chemistry and C hemistry - challengeon 01-17-2024 Ferritin [Mass/Vol] 183.0 ng/mL 26.0-388.0 [facility] Iron [Mass/Vol] 99.0 ug/dL 65.0-175.0 [facility] Laboratory - Hematology and Cell countson 01-17-2024 Immature granulocytes/100 WBC (Bld) 0.8 % High 0.0-0.5 [facility] Leukocytes [#/volume] correc nohemy for nucleated erythrocytes in Blood by Automated counon 01-17-2024 WBC corrected for nucl RBC Auto (Bld) [#/Vol] 3.7 10 3/uL Low 4.0-11.0 [facility] Lymphocytes Auto (Bld) [#/Vo l]on 01-17-2024 Lymphocytes (Bld) [#/Vol] 0.9 10 3/uL Low 1.2-3.8 [facility] Lymphocytes/100 WBC Auto (Bl d)on 01-17-2024 Lymphocytes/100 WBC (Bld) 25.2 % 20.5-60.0 [facility] MCH Auto (RBC) [Entitic mass ]on 01-17-2024 MCH (RBC) [Entitic mass] 31.9 pg 25.9-34.0 [facility] MCHC Auto (RBC) [Mass/Vol]on 01-17-2024 MCHC (RBC) [Mass/Vol] 33.3 g/dL 29.9-35.2 [facility] MCV Auto (RBC) [Entitic vol] on 01-17-2024 MCV (RBC) [Entitic vol] 95.8 fL High 80.0-94.0 [facility] Monocytes Auto (Bld) [#/Vol] on 01-17-2024 Monocytes (Bld) [#/Vol] 0.3 10 3/uL 0.3-0.8 [facility] Monocytes/100 WBC Auto (Bld) on 01-17-2024 Monocytes/100 WBC (Bld) 7.0 % 1.7-12.0 [facility] Neutrophils Auto (Bld) [#/Vo l]on 01-17-2024 Neutrophils (Bld) [#/Vol] 2.4 10 3/uL 1.4-6.5 [facility] Neutrophils/100 WBC Auto (Bl d)on 01-17-2024 Neutrophils/100 WBC (Bld) 65.1 % 43.0-75.0 [facility] No Panel Informationon 01-16 Eosinophils # (Auto) 0.1 10 3/uL 0.0-0.7 [facility] Immature Granulocyte # (Auto) 0.03 10 3/uL 0.00-0.03 [facility] Platelet mean volume Auto (B ld) [Entitic vol]on 01-17-2024 Platelet mean volume (Bld) [Entitic vol] 8.9 fL Low 9.5-13.5 [facility] Platelets Auto (Bld) [#/Vol] on 01-17-2024 Platelets (Bld) [#/Vol] 126 10 3/uL Low 150-450 [facility] RBC Auto (Bld) [#/Vol]on RBC (Bld) [#/Vol] 3.85 10 6/uL Low 4.70-6.10 [facility] Basophils Auto (Bld) [#/Vol] on 01-07-2024 Basophils (Bld) [#/Vol] 0.0 10 3/uL 0.0-0.1 [facility] Basophils/100 WBC Auto (Bld) on 01-07-2024 Basophils/100 WBC (Bld) 0.5 % 0.2-2.0 [facility] Eosinophils/100 WBC Auto (Bl d)on 01-07-2024 Eosinophils/100 WBC (Bld) 1.6 % 0.9-7.0 [facility] Erythrocyte distribution wid th Auto (RBC) [Ratio]on 01-07-2024 Erythrocyte distribution width (RBC) [Ratio] 13.4 % 11.0-15.0 [facility] Hematocrit Auto (Bld) [Volum e fraction]on 01-07-2024 Hematocrit (Bld) [Volume fraction] 35.8 % Low 42.0-54.0 [facility] Hemoglobin [Mass/volume] in Bloodon 01-07-2024 Hemoglobin (Bld) [Mass/Vol] 12.0 g/dL Low 14.0-18.0 [facility] Laboratory - Hematology and Cell countson 01-07-2024 Immature granulocytes/100 WBC (Bld) 0.5 % 0.0-0.5 [facility] Leukocytes [#/volume] correc nohemy for nucleated erythrocytes in Blood by Automated counon 01-07-2024 WBC corrected for nucl RBC Auto (Bld) [#/Vol] 3.8 10 3/uL Low 4.0-11.0 [facility] Lymphocytes Auto (Bld) [#/Vo l]on 01-07-2024 Lymphocytes (Bld) [#/Vol] 0.7 10 3/uL Low 1.2-3.8 [facility] Lymphocytes/100 WBC Auto (Bl d)on 01-07-2024 Lymphocytes/100 WBC (Bld) 18.6 % Low 20.5-60.0 [facility] MCH Auto (RBC) [Entitic mass ]on 01-07-2024 MCH (RBC) [Entitic mass] 32.2 pg 25.9-34.0 [facility] MCHC Auto (RBC) [Mass/Vol]on 01-07-2024 MCHC (RBC) [Mass/Vol] 33.5 g/dL 29.9-35.2 [facility] MCV Auto (RBC) [Entitic vol] on 01-07-2024 MCV (RBC) [Entitic vol] 96.0 fL High 80.0-94.0 [facility] Monocytes Auto (Bld) [#/Vol] on 01-07-2024 Monocytes (Bld) [#/Vol] 0.3 10 3/uL 0.3-0.8 [facility] Monocytes/100 WBC Auto (Bld) on 01-07-2024 Monocytes/100 WBC (Bld) 7.6 % 1.7-12.0 [facility] Neutrophils Auto (Bld) [#/Vo l]on 01-07-2024 Neutrophils (Bld) [#/Vol] 2.7 10 3/uL 1.4-6.5 [facility] Neutrophils/100 WBC Auto (Bl d)on 01-07-2024 Neutrophils/100 WBC (Bld) 71.2 % 43.0-75.0 [facility] No Panel Informationon 01-06 Eosinophils # (Auto) 0.1 10 3/uL 0.0-0.7 [facility] Immature Granulocyte # (Auto) 0.02 10 3/uL 0.00-0.03 [facility] Platelet mean volume Auto (B ld) [Entitic vol]on 01-07-2024 Platelet mean volume (Bld) [Entitic vol] 8.9 fL Low 9.5-13.5 [facility] Platelets Auto (Bld) [#/Vol] on 01-07-2024 Platelets (Bld) [#/Vol] 127 10 3/uL Low 150-450 [facility] RBC Auto (Bld) [#/Vol]on RBC (Bld) [#/Vol] 3.73 10 6/uL Low 4.70-6.10 [facility] Iron binding capacity [Mass/ volume] in Serum or Plasmaon 01-03-2024 Iron binding capacity [Mass/Vol] 332.0 ug/dL 250.0-450.0 [facility] Iron saturation [Mass Fracti on] in Serum or Plasmaon 01-03-2024 Iron saturation [Mass fraction] 28.9 % [facility] Laboratory - Chemistry and C hemistry - challengeon 01-03-2024 Ferritin [Mass/Vol] 300.0 ng/mL 26.0-388.0 [facility] Iron [Mass/Vol] 96.0 ug/dL 65.0-175.0 [facility] Iron binding capacity [Mass/ volume] in Serum or Plasmaon 12-20-2023 Iron binding capacity [Mass/Vol] 301.0 ug/dL 250.0-450.0 [facility] Iron saturation [Mass Fracti on] in Serum or Plasmaon 12-20-2023 Iron saturation [Mass fraction] 31.6 % [facility] Laboratory - Chemistry and C hemistry - challengeon 12-20-2023 Ferritin [Mass/Vol] 449.0 ng/mL High 26.0-388.0 [facility] Iron [Mass/Vol] 95.0 ug/dL 65.0-175.0 [facility] Basophils Auto (Bld) [#/Vol] on 12-10-2023 Basophils (Bld) [#/Vol] 0.0 10 3/uL 0.0-0.1 [facility] Basophils/100 WBC Auto (Bld) on 12-10-2023 Basophils/100 WBC (Bld) 0.8 % 0.2-2.0 [facility] Eosinophils/100 WBC Auto (Bl d)on 12-10-2023 Eosinophils/100 WBC (Bld) 1.4 % 0.9-7.0 [facility] Erythrocyte distribution wid th Auto (RBC) [Ratio]on 12-10-2023 Erythrocyte distribution width (RBC) [Ratio] 13.2 % 11.0-15.0 [facility] Estimated glomerular filtrat ion rate (GFR) non- Americanon 12-10-2023 GFR/1.73 sq M.predicted among non-blacks MDRD (S/P/Bld) [Vol rate/Area] mL/min/{1.73_m2} >=60 [facility] Globulin Calc (S) [Mass/Vol] on 12-10-2023 Globulin (S) [Mass/Vol] 3.2 g/dL [facility] Hematocrit Auto (Bld) [Volum e fraction]on 12-10-2023 Hematocrit (Bld) [Volume fraction] 37.1 % Low 42.0-54.0 [facility] Hemoglobin [Mass/volume] in Bloodon 12-10-2023 Hemoglobin (Bld) [Mass/Vol] 12.2 g/dL Low 14.0-18.0 [facility] Iron binding capacity [Mass/ volume] in Serum or Plasmaon 12-10-2023 Iron binding capacity [Mass/Vol] 284.0 ug/dL 250.0-450.0 [facility] Iron saturation [Mass Fracti on] in Serum or Plasmaon 12-10-2023 Iron saturation [Mass fraction] 32.0 % [facility] Laboratory - Chemistry and C hemistry - challengeon 12-10-2023 Albumin [Mass/Vol] 3.9 g/dL 3.4-5.0 [facility] ALP [Catalytic activity/Vol] 74 U/L 46-116 [facility] ALT [Catalytic activity/Vol] 33 U/L 16-63 [facility] AST [Catalytic activity/Vol] 18 U/L 15-37 [facility] Bilirubin [Mass/Vol] 0.7 mg/dL 0.2-1.0 [facility] Calcium [Mass/Vol] 9.1 mg/dL 8.5-10.1 [facility] Chloride [Moles/Vol] 106 mmol/L 98-107 [facility] CO2 [Moles/Vol] 23.3 mmol/L 21.0-32.0 [facility] Creatinine [Mass/Vol] 1.19 mg/dL 0.70-1.30 [facility] Ferritin [Mass/Vol] 507.0 ng/mL High 26.0-388.0 [facility] GFR/1.73 sq M.predicted MDRD (S/P/Bld) [Vol rate/Area] mL/min/{1.73_m2} >=60 [facility] Glucose [Mass/Vol] 125 mg/dL High 74-106 [facility] Iron [Mass/Vol] 91.0 ug/dL 65.0-175.0 [facility] Potassium [Moles/Vol] 4.0 mmol/L 3.5-5.1 [facility] Protein [Mass/Vol] 7.1 g/dL 6.4-8.2 [facility] Sodium [Moles/Vol] 141 mmol/L 136-145 [facility] Urea nitrogen [Mass/Vol] 16.0 mg/dL 7.0-18.0 [facility] Urea nitrogen/Creatinine [Mass ratio] 13.4 mg/mg [facility] Laboratory - Hematology and Cell countson 12-10-2023 Immature granulocytes/100 WBC (Bld) 0.6 % High 0.0-0.5 [facility] Leukocytes [#/volume] correc nohemy for nucleated erythrocytes in Blood by Automated counon 12-10-2023 WBC corrected for nucl RBC Auto (Bld) [#/Vol] 3.6 10 3/uL Low 4.0-11.0 [facility] Lymphocytes Auto (Bld) [#/Vo l]on 12-10-2023 Lymphocytes (Bld) [#/Vol] 1.1 10 3/uL Low 1.2-3.8 [facility] Lymphocytes/100 WBC Auto (Bl d)on 12-10-2023 Lymphocytes/100 WBC (Bld) 30.1 % 20.5-60.0 [facility] MCH Auto (RBC) [Entitic mass ]on 12-10-2023 MCH (RBC) [Entitic mass] 31.4 pg 25.9-34.0 [facility] MCHC Auto (RBC) [Mass/Vol]on 12-10-2023 MCHC (RBC) [Mass/Vol] 32.9 g/dL 29.9-35.2 [facility] MCV Auto (RBC) [Entitic vol] on 12-10-2023 MCV (RBC) [Entitic vol] 95.6 fL High 80.0-94.0 [facility] Monocytes Auto (Bld) [#/Vol] on 12-10-2023 Monocytes (Bld) [#/Vol] 0.2 10 3/uL Low 0.3-0.8 [facility] Monocytes/100 WBC Auto (Bld) on 12-10-2023 Monocytes/100 WBC (Bld) 5.8 % 1.7-12.0 [facility] Neutrophils Auto (Bld) [#/Vo l]on 12-10-2023 Neutrophils (Bld) [#/Vol] 2.2 10 3/uL 1.4-6.5 [facility] Neutrophils/100 WBC Auto (Bl d)on 12-10-2023 Neutrophils/100 WBC (Bld) 61.3 % 43.0-75.0 [facility] No Panel Informationon 12-09 Eosinophils # (Auto) 0.1 10 3/uL 0.0-0.7 [facility] Immature Granulocyte # (Auto) 0.02 10 3/uL 0.00-0.03 [facility] Platelet mean volume Auto (B ld) [Entitic vol]on 12-10-2023 Platelet mean volume (Bld) [Entitic vol] 9.4 fL Low 9.5-13.5 [facility] Platelets Auto (Bld) [#/Vol] on 12-10-2023 Platelets (Bld) [#/Vol] 130 10 3/uL Low 150-450 [facility] RBC Auto (Bld) [#/Vol]on RBC (Bld) [#/Vol] 3.88 10 6/uL Low 4.70-6.10 [facility] Serum or plasma albumin/glob ulin mass ratioon 12-10-2023 Albumin/Globulin [Mass ratio] 1.2 {ratio} [facility] Serum or plasma anion gap de terminationon 12-10-2023 Anion gap [Moles/Vol] 15.7 mmol/L [facility] binding capacity [Mass/ volume] in Serum or Plasmaon 12-05-2023 Iron binding capacity [Mass/Vol] 332.0 ug/dL 250.0-450.0 [facility] Iron saturation [Mass Fracti on] in Serum or Plasmaon 12-05-2023 Iron saturation [Mass fraction] 31.0 % [facility] Laboratory - Chemistry and C hemistry - challengeon 12-05-2023 Ferritin [Mass/Vol] 597.0 ng/mL High 26.0-388.0 [facility] Iron [Mass/Vol] 103.0 ug/dL 65.0-175.0 [facility] Basophils Auto (Bld) [#/Vol] on 11-12-2023 Basophils (Bld) [#/Vol] 0.0 10 3/uL 0.0-0.1 [facility] Basophils/100 WBC Auto (Bld) on 11-12-2023 Basophils/100 WBC (Bld) 0.5 % 0.2-2.0 [facility] Eosinophils/100 WBC Auto (Bl d)on 11-12-2023 Eosinophils/100 WBC (Bld) 1.0 % 0.9-7.0 [facility] Erythrocyte distribution wid th Auto (RBC) [Ratio]on 11-12-2023 Erythrocyte distribution width (RBC) [Ratio] 13.2 % 11.0-15.0 [facility] Hematocrit Auto (Bld) [Volum e fraction]on 11-12-2023 Hematocrit (Bld) [Volume fraction] 43.8 % 42.0-54.0 [facility] Hemoglobin [Mass/volume] in Bloodon 11-12-2023 Hemoglobin (Bld) [Mass/Vol] 14.7 g/dL 14.0-18.0 [facility] Malvin 11-12-2023 L Specimen: Received: 11/13/23 Status: JOSE Krishna Num: [id number] Spec Type: Impression Subm Dr: Peggy Rivas MD Tissues: PATHPER Procedures: PATHREVIEW Age/ Patient Sex Location Account Attending Physician Yuri No 68/M LABELL [id number] Peggy Rivas MD SPEC NUM: RECD: 11/13/23 STATUS: MELBAAdriana KRISHNA NUM: [id number] REGINALDO: 11/12/[address]: Peggy Rivas MD ENTERED: 11/13/23 [facility] DR: SPEC TYPE: Impression DEPT: ALIA Cardenas ENTERED BY: [id number] RECV BY: [id number] ORDERED: PATHREVIEW ORDERED: PATHREVIEW Pathologist Review Thrombocytopenia Is Noted. No Significant Increase In Schistocytes Or Spherocytes Is Identified. Differential Diagnosis Includes Peripheral Etiology (e.g. ITP, Drug-induced) Vs. Bone Marrow Disorder. Clinical Correlation Is Required. Specimen: [id number] Received: 11/13/23 Status: JOSE Sewellparamjit Num: [id number] Spec Type: Impression Subm Dr: Peggy Rivas MD Tissues: PATHPER Procedures: PATHREVIEW Patient: Yuri No [id number] (Continued) Signed (signatur e on file) Conner Naqvi MD 11/13/23 1540 [facility] Laboratory - Chemistry and C hemistry - challengeon 11-12-2023 LDH [Catalytic activity/Vol] 240 U/L 85-227 [facility] Laboratory - Hematology and Cell countson 11-12-2023 Immature granulocytes/100 WBC (Bld) 0.8 % 0.0-0.5 [facility] Leukocytes [#/volume] correc nohemy for nucleated erythrocytes in Blood by Automated counon 11-12-2023 WBC corrected for nucl RBC Auto (Bld) [#/Vol] 4.0 10 3/uL 4.0-11.0 [facility] Lymphocytes Auto (Bld) [#/Vo l]on 11-12-2023 Lymphocytes (Bld) [#/Vol] 0.9 10 3/uL 1.2-3.8 [facility] Lymphocytes/100 WBC Auto (Bl d)on 11-12-2023 Lymphocytes/100 WBC (Bld) 21.4 % 20.5-60.0 [facility] MCH Auto (RBC) [Entitic mass ]on 11-12-2023 MCH (RBC) [Entitic mass] 31.7 pg 25.9-34.0 [facility] MCHC Auto (RBC) [Mass/Vol]on 11-12-2023 MCHC (RBC) [Mass/Vol] 33.6 g/dL 29.9-35.2 [facility] MCV Auto (RBC) [Entitic vol] on 11-12-2023 MCV (RBC) [Entitic vol] 94.4 fL 80.0-94.0 [facility] Monocytes Auto (Bld) [#/Vol] on 11-12-2023 Monocytes (Bld) [#/Vol] 0.3 10 3/uL 0.3-0.8 [facility] Monocytes/100 WBC Auto (Bld) on 11-12-2023 Monocytes/100 WBC (Bld) 6.5 % 1.7-12.0 [facility] Neutrophils Auto (Bld) [#/Vo l]on 11-12-2023 Neutrophils (Bld) [#/Vol] 2.8 10 3/uL 1.4-6.5 [facility] Neutrophils/100 WBC Auto (Bl d)on 11-12-2023 Neutrophils/100 WBC (Bld) 69.8 % 43.0-75.0 [facility] No Panel Informationon 11-11 Eosinophils # (Auto) 0.0 10 3/uL 0.0-0.7 [facility] Immature Granulocyte # (Auto) 0.03 10 3/uL 0.00-0.03 [facility] Platelet mean volume Auto (B ld) [Entitic vol]on 11-12-2023 Platelet mean volume (Bld) [Entitic vol] 8.9 fL 9.5-13.5 [facility] Platelets Auto (Bld) [#/Vol] on 11-12-2023 Platelets (Bld) [#/Vol] 126 10 3/uL 150-450 [facility] RBC Auto (Bld) [#/Vol]on RBC (Bld) [#/Vol] 4.64 10 6/uL 4.70-6.10 [facility] Albumin [Mass/volume] in Ser um or Plasmaon 10-28-2023 Albumin [Mass/Vol] 4.0 g/dL 2.9-4.4 [facility] Basophils Auto (Bld) [#/Vol] on 10-28-2023 Basophils (Bld) [#/Vol] 0.0 10 3/uL 0.0-0.1 [facility] Basophils/100 WBC Auto (Bld) on 10-28-2023 Basophils/100 WBC (Bld) 0.5 % 0.2-2.0 [facility] Eosinophils/100 WBC Auto (Bl d)on 10-28-2023 Eosinophils/100 WBC (Bld) 1.4 % 0.9-7.0 [facility] Erythrocyte distribution wid th Auto (RBC) [Ratio]on 10-28-2023 Erythrocyte distribution width (RBC) [Ratio] 13.2 % 11.0-15.0 [facility] Hematocrit Auto (Bld) [Volum e fraction]on 10-28-2023 Hematocrit (Bld) [Volume fraction] 42.8 % 42.0-54.0 [facility] Hemoglobin [Mass/volume] in Bloodon 10-28-2023 Hemoglobin (Bld) [Mass/Vol] 14.5 g/dL 14.0-18.0 [facility] IgA [Mass/volume] in Serum o r Plasmaon 10-28-2023 IgA [Mass/Vol] 219 mg/dL 61-437 [facility] IgG [Mass/volume] in Serum o r Plasmaon 10-28-2023 IgG [Mass/Vol] 927 mg/dL 603-1613 [facility] IgM [Mass/volume] in Serum o r Plasmaon 10-28-2023 IgM [Mass/Vol] 34 mg/dL 20-172 [facility] Immunoglobulin light chains. kappa.free [Mass/volume] in Serumon 10-28-2023 Immunoglobulin light chains.kappa.free (S) [Mass/Vol] 24.1 mg/L 3.3-19.4 [facility] Immunoglobulin light chains. kappa.free/Immunoglobulin light chains.lambda.free [Pebbles 10-28-2023 Immunoglobulin light chains.kappa.free/Immunog lobulin light chains.lambda.free (S) [Mass ratio] 1.64 0.26-1.65 [facility] Comment on above: Performed at: [address] [id number] Director: You Barrow PhD, Phone: [phone] Immunoglobulin light chains. lambda.free [Mass/volume] in Serum or Plasmaon 10-28-2023 Immunoglobulin light chains.lambda.free [Mass/Vol] 14.7 mg/L 5.7-26.3 [facility] Iron binding capacity [Mass/ volume] in Serum or Plasmaon 10-28-2023 Iron binding capacity [Mass/Vol] 293.0 ug/dL 250.0-450.0 [facility] Iron saturation [Mass Fracti on] in Serum or Plasmaon 10-28-2023 Iron saturation [Mass fraction] 36.9 % [facility] Laboratory - Chemistry and C hemistry - challengeon 10-28-2023 Ferritin [Mass/Vol] 709.0 ng/mL 26.0-388.0 [facility] Iron [Mass/Vol] 108.0 ug/dL 65.0-175.0 [facility] Laboratory - Hematology and Cell countson 10-28-2023 ESR (Bld) [Velocity] 27 mm/h <=20 [facility] Immature granulocytes/100 WBC (Bld) 0.5 % 0.0-0.5 [facility] Leukocytes [#/volume] correc nohemy for nucleated erythrocytes in Blood by Automated counon 10-28-2023 WBC corrected for nucl RBC Auto (Bld) [#/Vol] 4.2 10 3/uL 4.0-11.0 [facility] Lymphocytes Auto (Bld) [#/Vo l]on 10-28-2023 Lymphocytes (Bld) [#/Vol] 0.9 10 3/uL 1.2-3.8 [facility] Lymphocytes/100 WBC Auto (Bl d)on 10-28-2023 Lymphocytes/100 WBC (Bld) 21.4 % 20.5-60.0 [facility] MCH Auto (RBC) [Entitic mass ]on 10-28-2023 MCH (RBC) [Entitic mass] 31.5 pg 25.9-34.0 [facility] MCHC Auto (RBC) [Mass/Vol]on 10-28-2023 MCHC (RBC) [Mass/Vol] 33.9 g/dL 29.9-35.2 [facility] MCV Auto (RBC) [Entitic vol] on 10-28-2023 MCV (RBC) [Entitic vol] 92.8 fL 80.0-94.0 [facility] Monocytes Auto (Bld) [#/Vol] on 10-28-2023 Monocytes (Bld) [#/Vol] 0.3 10 3/uL 0.3-0.8 [facility] Monocytes/100 WBC Auto (Bld) on 10-28-2023 Monocytes/100 WBC (Bld) 6.9 % 1.7-12.0 [facility] Neutrophils Auto (Bld) [#/Vo l]on 10-28-2023 Neutrophils (Bld) [#/Vol] 2.9 10 3/uL 1.4-6.5 [facility] Neutrophils/100 WBC Auto (Bl d)on 10-28-2023 Neutrophils/100 WBC (Bld) 69.3 % 43.0-75.0 [facility] No Panel Informationon 10-27 C-Reactive Protein, Quantitative <0.50 mg/dL <=0.50 [facility] Eosinophils # (Auto) 0.1 10 3/uL 0.0-0.7 [facility] Immature Granulocyte # (Auto) 0.02 10 3/uL 0.00-0.03 [facility] Protein Electrophoresis M-Talon Not Observed g/dL Not Observed [facility] Protein Electrophoresis Note Comment . [facility] Comment on above: Protein electrophore sis scan will follow via computer,mail, or associate professor computer science delivery. Platelet mean volume Auto (B ld) [Entitic vol]on 10-28-2023 Platelet mean volume (Bld) [Entitic vol] 9.0 fL 9.5-13.5 [facility] Platelets Auto (Bld) [#/Vol] on 10-28-2023 Platelets (Bld) [#/Vol] 126 10 3/uL 150-450 [facility] Protein [Mass/volume] in Ser um or Plasmaon 10-28-2023 Protein [Mass/Vol] 6.8 g/dL 6.0-8.5 [facility] RBC Auto (Bld) [#/Vol]on RBC (Bld) [#/Vol] 4.61 10 6/uL 4.70-6.10 [facility] Serum globulin measurement ( mass/volume)on 10-28-2023 Globulin (S) [Mass/Vol] 2.8 g/dL 2.2-3.9 [facility] Serum or plasma albumin/glob ulin mass ratioon 10-28-2023 Albumin/Globulin [Mass ratio] 1.5 {ratio} 0.7-1.7 [facility] Serum or plasma alpha 1 glob ulin measurement by electrophoresis (mass/volume)on 10-28-2023 Alpha 1 globulin Elph [Mass/Vol] 0.2 g/dL 0.0-0.4 [facility] Serum or plasma alpha 2 glob ulin measurement by electrophoresis (mass/volume)on 10-28-2023 Alpha 2 globulin Elph [Mass/Vol] 0.7 g/dL 0.4-1.0 [facility] Serum or plasma beta globuli n measurement by electrophoresis (mass/volume)on 10-28-2023 Beta globulin Elph [Mass/Vol] 1.1 g/dL 0.7-1.3 [facility] Serum or plasma gamma globul in measurement by electrophoresis (mass/volume)on 10-28-2023 Gamma globulin Elph [Mass/Vol] 0.8 g/dL 0.4-1.8 [facility] Serum or plasma immunoelectr ophoresis interpretationon 10-28-2023 Interpretation IEP [Interp] Comment . [facility] Comment on above: No monoclonality det ected. Albumin [Mass/volume] in Ser um or Plasmaon 10-10-2023 Albumin [Mass/Vol] 4.0 g/dL 2.9-4.4 [facility] Basophils Auto (Bld) [#/Vol] on 10-10-2023 Basophils (Bld) [#/Vol] 0.0 10 3/uL 0.0-0.1 [facility] Basophils/100 WBC Auto (Bld) on 10-10-2023 Basophils/100 WBC (Bld) 1.0 % 0.2-2.0 [facility] Eosinophils/100 WBC Auto (Bl d)on 10-10-2023 Eosinophils/100 WBC (Bld) 2.0 % 0.9-7.0 [facility] Erythrocyte distribution wid th Auto (RBC) [Ratio]on 10-10-2023 Erythrocyte distribution width (RBC) [Ratio] 13.2 % 11.0-15.0 [facility] Estimated glomerular filtrat ion rate (GFR) non- Americanon 10-10-2023 GFR/1.73 sq M.predicted among non-blacks MDRD (S/P/Bld) [Vol rate/Area] mL/min/{1.73_m2} >=60 [facility] Globulin Calc (S) [Mass/Vol] on 10-10-2023 Globulin (S) [Mass/Vol] 3.6 g/dL F [facility] Hematocrit Auto (Bld) [Volum e fraction]on 10-10-2023 Hematocrit (Bld) [Volume fraction] 42.4 % 42.0-54.0 [facility] Hemoglobin [Mass/volume] in Bloodon 10-10-2023 Hemoglobin (Bld) [Mass/Vol] 14.2 g/dL 14.0-18.0 [facility] IgA [Mass/volume] in Serum o r Plasmaon 10-10-2023 IgA [Mass/Vol] 215 mg/dL 61-437 [facility] IgG [Mass/volume] in Serum o r Plasmaon 10-10-2023 IgG [Mass/Vol] 976 mg/dL 603-1613 [facility] IgM [Mass/volume] in Serum o r Plasmaon 10-10-2023 IgM [Mass/Vol] 31 mg/dL 20-172 [facility] Immunoglobulin light chains. kappa.free [Mass/volume] in Serumon 10-10-2023 Immunoglobulin light chains.kappa.free (S) [Mass/Vol] 23.8 mg/L 3.3-19.4 [facility] Immunoglobulin light chains. kappa.free/Immunoglobulin light chains.lambda.free [Pebbles 10-10-2023 Immunoglobulin light chains.kappa.free/Immunog lobulin light chains.lambda.free (S) [Mass ratio] 1.57 0.26-1.65 [facility] Comment on above: Performed at: [place] [id number] Director: You Barrow PhD, Phone: [phone] Immunoglobulin light chains. lambda.free [Mass/volume] in Serum or Plasmaon 10-10-2023 Immunoglobulin light chains.lambda.free [Mass/Vol] 15.2 mg/L 5.7-26.3 [facility] Laboratory - Chemistry and C hemistry - challengeon 10-10-2023 Albumin [Mass/Vol] 3.9 g/dL 3.4-5.0 [facility] ALP [Catalytic activity/Vol] 81 U/L 46-116 [facility] ALT [Catalytic activity/Vol] 38 U/L 16-63 [facility] AST [Catalytic activity/Vol] 17 U/L 15-37 [facility] Bilirubin [Mass/Vol] 0.6 mg/dL 0.2-1.0 [facility] Calcium [Mass/Vol] 9.1 mg/dL 8.5-10.1 [facility] Chloride [Moles/Vol] 109 mmol/L 98-107 [facility] CO2 [Moles/Vol] 22.8 mmol/L 21.0-32.0 [facility] Cobalamin (Vitamin B12) [Mass/Vol] 770.0 pg/mL 193.0-986.0 [facility] Creatinine [Mass/Vol] 1.00 mg/dL 0.70-1.30 [facility] Ferritin [Mass/Vol] 676.0 ng/mL 26.0-388.0 [facility] GFR/1.73 sq M.predicted MDRD (S/P/Bld) [Vol rate/Area] mL/min/{1.73_m2} >=60 [facility] Glucose [Mass/Vol] 115 mg/dL 74-106 [facility] Potassium [Moles/Vol] 4.2 mmol/L 3.5-5.1 [facility] Protein [Mass/Vol] 7.5 g/dL 6.4-8.2 [facility] Sodium [Moles/Vol] 145 mmol/L 136-145 [facility] TSH Qn 1.282 m[IU]/L 0.358-3.740 [facility] Urea nitrogen [Mass/Vol] 17.0 mg/dL 7.0-18.0 [facility] Urea nitrogen/Creatinine [Mass ratio] 17.0 mg/mg [facility] Laboratory - Hematology and Cell countson 10-10-2023 Immature granulocytes/100 WBC (Bld) 0.2 % 0.0-0.5 [facility] Leukocytes [#/volume] correc nohemy for nucleated erythrocytes in Blood by Automated counon 10-10-2023 WBC corrected for nucl RBC Auto (Bld) [#/Vol] 4.1 10 3/uL 4.0-11.0 [facility] Lymphocytes Auto (Bld) [#/Vo l]on 10-10-2023 Lymphocytes (Bld) [#/Vol] 1.0 10 3/uL 1.2-3.8 [facility] Lymphocytes/100 WBC Auto (Bl d)on 10-10-2023 Lymphocytes/100 WBC (Bld) 24.6 % 20.5-60.0 [facility] MCH Auto (RBC) [Entitic mass ]on 10-10-2023 MCH (RBC) [Entitic mass] 31.7 pg 25.9-34.0 [facility] MCHC Auto (RBC) [Mass/Vol]on 10-10-2023 MCHC (RBC) [Mass/Vol] 33.5 g/dL 29.9-35.2 [facility] MCV Auto (RBC) [Entitic vol] on 10-10-2023 MCV (RBC) [Entitic vol] 94.6 fL 80.0-94.0 [facility] Monocytes Auto (Bld) [#/Vol] on 10-10-2023 Monocytes (Bld) [#/Vol] 0.3 10 3/uL 0.3-0.8 [facility] Monocytes/100 WBC Auto (Bld) on 10-10-2023 Monocytes/100 WBC (Bld) 6.6 % 1.7-12.0 [facility] Neutrophils Auto (Bld) [#/Vo l]on 10-10-2023 Neutrophils (Bld) [#/Vol] 2.7 10 3/uL 1.4-6.5 [facility] Neutrophils/100 WBC Auto (Bl d)on 10-10-2023 Neutrophils/100 WBC (Bld) 65.6 % 43.0-75.0 [facility] No Panel Informationon 10-10 Eosinophils # (Auto) 0.1 10 3/uL 0.0-0.7 [facility] Immature Granulocyte # (Auto) 0.01 10 3/uL 0.00-0.03 [facility] Protein Electrophoresis M-Talon Not Observed g/dL Not Observed [facility] Protein Electrophoresis Note Comment . [facility] Comment on above: Protein electrophore sis scan will follow via computer,mail, or associate professor computer science delivery. Platelet mean volume Auto (B ld) [Entitic vol]on 10-10-2023 Platelet mean volume (Bld) [Entitic vol] 9.0 fL 9.5-13.5 [facility] Platelets Auto (Bld) [#/Vol] on 10-10-2023 Platelets (Bld) [#/Vol] 130 10 3/uL 150-450 [facility] Protein [Mass/volume] in Ser um or Plasmaon 10-10-2023 Protein [Mass/Vol] 6.7 g/dL 6.0-8.5 [facility] RBC Auto (Bld) [#/Vol]on RBC (Bld) [#/Vol] 4.48 10 6/uL 4.70-6.10 [facility] Serum globulin measurement ( mass/volume)on 10-10-2023 Globulin (S) [Mass/Vol] 2.7 g/dL 2.2-3.9 [facility] Serum or plasma albumin/glob ulin mass ratioon 10-10-2023 Albumin/Globulin [Mass ratio] 1.1 {ratio} [facility] Albumin/Globulin [Mass ratio] 1.5 {ratio} 0.7-1.7 [facility] Serum or plasma alpha 1 glob ulin measurement by electrophoresis (mass/volume)on 10-10-2023 Alpha 1 globulin Elph [Mass/Vol] 0.2 g/dL 0.0-0.4 [facility] Serum or plasma alpha 2 glob ulin measurement by electrophoresis (mass/volume)on 10-10-2023 Alpha 2 globulin Elph [Mass/Vol] 0.7 g/dL 0.4-1.0 [facility] Serum or plasma anion gap de terminationon 10-10-2023 Anion gap [Moles/Vol] 17.4 mmol/L [facility] Serum or plasma beta globuli n measurement by electrophoresis (mass/volume)on 10-10-2023 Beta globulin Elph [Mass/Vol] 1.0 g/dL 0.7-1.3 [facility] Serum or plasma gamma globul in measurement by electrophoresis (mass/volume)on 10-10-2023 Gamma globulin Elph [Mass/Vol] 0.8 g/dL 0.4-1.8 [facility] Serum or plasma immunoelectr ophoresis interpretationon 10-10-2023 Interpretation IEP [Interp] Comment . [facility] Comment on above: No monoclonality det ected. GLYCOHEMOGLOBIN A1Con 2021 ADA RECOMMENDATION SEE BELOW Normal [facility] Comment on above: Result Comment: ADA RECOMMENDED LIMIT 4.0 - 6.0 ADA THERAPEUTIC TARGET < 7.0 ACTION SUGGESTED > 7.0 Performed By: #### D ATA1C #### [facility] [address] [place] [address] Dr. Lucia Dee Glucose [Mass/Vol] 111 mg/dL Normal [facility] Comment on above: Performed By: #### D ATA1C #### [facility] [address] [place] [address] [address] Lucia Dee HbA1c (Bld) [Mass fraction] 5.5 % Normal 4.5-6.2 [facility] Comment on above: Performed By: #### D ATA1C #### [facility] [address] [place] [address] Dr. Lucia Dee CBC AUTO DIFFon 02-08-2022 BASO # 0.0 103/ul Normal 0.0-0.1 [facility] Comment on above: Performed By: #### C BC #### [facility] [address] [place] [address] [address] Lucia Dee Basophils/100 WBC (Bld) 0.9 % Normal 0.2-2.0 [facility] Comment on above: Performed By: #### C BC #### [facility] [address] [place] [address] Dr. Lucia Dee EO # 0.1 103/ul Normal 0.0-0.7 [facility] Comment on above: Performed By: #### C BC #### [facility] [address] [place] [address] Dr. Lucia Dee Eosinophils/100 WBC (Bld) 2.2 % Normal 0.9-7.0 [facility] Comment on above: Performed By: #### C BC #### [facility] [address] [place] [address] Dr. Lucia Dee Erythrocyte distribution width (RBC) [Ratio] 13.2 % Normal 11.0-15.0 [facility] Comment on above: Performed By: #### C BC #### [facility] [address] [place] [address] Dr. Lucia Dee Hematocrit (Bld) [Volume fraction] 41.8 % Critically low 42.0-54.0 [facility] Comment on above: Performed By: #### C BC #### [facility] [address] [place] [address] Dr. Lucia Dee Hemoglobin (Bld) [Mass/Vol] 14.2 g/dL Normal 14.0-18.0 [facility] Comment on above: Performed By: #### C BC #### [facility] [address] [place] [address] Dr. Lucia Dee IG # 0.02 10e3/ul Normal 0.00-0.03 [facility] Comment on above: Performed By: #### C BC #### [facility] [address] [place] [address] Dr. Lucia Dee IG % 0.4 % Normal 0.0-0.5 [facility] Comment on above: Performed By: #### C BC #### [facility] [address] [place] [address] Dr. Lucia Dee LYMPH # 1.0 103/ul Critically low 1.2-3.8 [facility] Comment on above: Performed By: #### C BC #### [facility] [address] [place] [address] Dr. Lucia Dee Lymphocytes/100 WBC (Bld) 22.3 % Normal 20.5-60.0 [facility] Comment on above: Performed By: #### C BC #### [facility] [address] [place] [address] Dr. Lucia Dee MANUAL DIFF REQ NO Normal [facility] Comment on above: Performed By: #### C BC #### [facility] [address] [place] [address] Dr. Lucia Dee MCH (RBC) [Entitic mass] 31.8 pg Normal 25.9-34.0 [facility] Comment on above: Performed By: #### C BC #### [facility] [address] [place] [address] [address] Lucia Dee MCHC (RBC) [Mass/Vol] 34.0 g/dL Normal 29.9-35.2 [facility] Comment on above: Performed By: #### C BC #### [facility] [address] [address] [address] Lucia Dee MCV (RBC) [Entitic vol] 93.5 fL Normal 80.0-94.0 [facility] Comment on above: Performed By: #### C BC #### [facility] [address] [place] [address] [address] Lucia Dee MONO # 0.3 103/ul Normal 0.3-0.8 [facility] Comment on above: Performed By: #### C BC #### [facility] [address] [place] [address] Dr. Lucia Dee Monocytes/100 WBC (Bld) 7.2 % Normal 1.7-12.0 [facility] Comment on above: Performed By: #### C BC #### [facility] [address] [place] [address] Dr. Lucia Dee NEUT # 3.1 103/ul Normal 1.4-6.5 [facility] Comment on above: Performed By: #### C BC #### [facility] [address] [place] [address] Dr. Lucia Dee Neutrophils/100 WBC (Bld) 67.0 % Normal 43.0-75.0 [facility] Comment on above: Performed By: #### C BC #### [facility] [address] [place] [address] Dr. Lucia Dee Platelet mean volume (Bld) [Entitic vol] 8.7 fL Critically low 9.5-13.5 [facility] Comment on above: Performed By: #### C BC #### [facility] [address] [place] [address] Dr. Lucia Dee PLT 121 103/ul Critically low 150-450 [facility] Comment on above: Performed By: #### C BC #### [facility] [address] [address] [address] Lucia Dee RBC 4.47 106/ul Critically low 4.70-6.10 [facility] Comment on above: Performed By: #### C BC #### [facility] [address] [address] [address] Lucia Dee WBC 4.6 103/ul Normal 4.0-11.0 [facility] Comment on above: Performed By: #### C BC #### [facility] [address] [place] [address] Dr. Lucia Dee PROF CHEM 8 (BAS METB)on Anion gap [Moles/Vol] 13.4 mmol/L Normal [facility] Comment on above: Performed By: #### B MP #### [facility] [address] [place] [address] Dr. Lucia Dee Calcium [Mass/Vol] 9.1 mg/dL Normal 8.5-10.1 [facility] Comment on above: Performed By: #### B MP #### [facility] [address] [place] [address] Dr. Lucia Dee Chloride [Moles/Vol] 107 mmol/L Normal 98-107 [facility] Comment on above: Performed By: #### B MP #### [facility] [address] [place] [address] Dr. Lucia Dee CO2 [Moles/Vol] 25.5 mmol/L Normal 21.0-32.[address] [facility] Comment on above: Performed By: #### B MP #### [facility] [address] [place] [address] Dr. Lucia Dee Creatinine [Mass/Vol] 1.13 mg/dL Normal 0.70-1.30 [facility] Comment on above: Performed By: #### B MP #### [facility] [address] [place] [address] Dr. Lucia Dee EGFR-AF GIBRALTARIAN >60 Normal >=60 [facility] Comment on above: Performed By: #### B MP #### [facility] [address] [address] [address] Lucia Dee EGFR-NON AF GIBRALTARIAN >60 Normal >=60 [facility] Comment on above: Performed By: #### B MP #### [facility] [address] [address] [address] Lucia Dee Glucose [Mass/Vol] 122 mg/dL Critically high 74-106 [facility] Comment on above: Performed By: #### B MP #### [facility] [address] [address] [address] Lucia Dee Potassium [Moles/Vol] 3.9 mmol/L Normal 3.5-5.1 [facility] Comment on above: Performed By: #### B MP #### [facility] [address] [place] [address] Dr. Lucia Dee Sodium [Moles/Vol] 142 mmol/L Normal 136-145 [facility] Comment on above: Performed By: #### B MP #### [facility] [address] [place] [address] Dr. Lucia Dee Urea nitrogen [Mass/Vol] 15.0 mg/dL Normal 7.0-18.0 [facility] Comment on above: Performed By: #### B MP #### [facility] [address] [place] [address] Dr. Lucia Dee Urea nitrogen/Creatinine [Mass ratio] 13.3 mg/mg Normal [facility] Comment on above: Performed By: #### B MP #### [facility] [address] [place] [address] Dr. Lucia Dee CBC AUTO DIFFon 05-17-2021 BASO # 0.0 103/ul Normal 0.0-0.1 [facility] Comment on above: Performed By: #### C BC #### [facility] [address] [place] [address] Dr. Lucia Dee Basophils/100 WBC (Bld) 0.9 % Normal 0.2-2.0 [facility] Comment on above: Performed By: #### C BC #### [facility] [address] [place] [address] Dr. Lucia Dee EO # 0.1 103/ul Normal 0.0-0.7 [facility] Comment on above: Performed By: #### C BC #### [facility] [address] [place] [address] Dr. Lucia Dee Eosinophils/100 WBC (Bld) 2.6 % Normal 0.9-7.0 [facility] Comment on above: Performed By: #### C BC #### [facility] [address] [place] [address] Dr. Lucia Dee Erythrocyte distribution width (RBC) [Ratio] 13.2 % Normal 11.0-15.0 [facility] Comment on above: Performed By: #### C BC #### [facility] [address] [place] [address] Dr. Lucia Dee Hematocrit (Bld) [Volume fraction] 44.7 % Normal 42.0-54.0 [facility] Comment on above: Performed By: #### C BC #### [facility] [address] [place] [address] Dr. Lucia Dee Hemoglobin (Bld) [Mass/Vol] 14.9 g/dL Normal 14.0-18.0 [facility] Comment on above: Performed By: #### C BC #### [facility] [address] [place] [address] Dr. Lucia Dee IG # 0.02 10e3/ul Normal 0.00-0.03 [facility] Comment on above: Performed By: #### C BC #### [facility] [address] [place] [address] Dr. Lucia Dee IG % 0.5 % Normal 0.0-0.5 [facility] Comment on above: Performed By: #### C BC #### [facility] [address] [place] [address] Dr. Lucia Dee LYMPH # 1.1 103/ul Critically low 1.2-3.8 [facility] Comment on above: Performed By: #### C BC #### [facility] [address] [place] [address] Dr. Lucia Dee Lymphocytes/100 WBC (Bld) 26.4 % Normal 20.5-60.0 [facility] Comment on above: Performed By: #### C BC #### [facility] [address] [place] [address] Dr. Lucia Dee MANUAL DIFF REQ NO Normal [facility] Comment on above: Performed By: #### C BC #### [facility] [address] [place] [address] Dr. Lucia Dee MCH (RBC) [Entitic mass] 31.3 pg Normal 25.9-34.0 [facility] Comment on above: Performed By: #### C BC #### [facility] [address] [place] [address] Dr. Lucia Dee MCHC (RBC) [Mass/Vol] 33.3 g/dL Normal 29.9-35.2 [facility] Comment on above: Performed By: #### C BC #### [facility] [address] [place] [address] Dr. Lucia Dee MCV (RBC) [Entitic vol] 93.9 fL Normal 80.0-94.0 [facility] Comment on above: Performed By: #### C BC #### [facility] [address] [place] [address] Dr. Lucia Dee MONO # 0.3 103/ul Normal 0.3-0.8 [facility] Comment on above: Performed By: #### C BC #### [facility] [address] [place] [address] Dr. Lucia Dee Monocytes/100 WBC (Bld) 7.3 % Normal 1.7-12.0 [facility] Comment on above: Performed By: #### C BC #### [facility] [address] [place] [address] Dr. Lucia Dee NEUT # 2.6 103/ul Normal 1.4-6.5 [facility] Comment on above: Performed By: #### C BC #### [facility] [address] [place] [address] Dr. Lucia Dee Neutrophils/100 WBC (Bld) 62.3 % Normal 43.0-75.0 [facility] Comment on above: Performed By: #### C BC #### [facility] [address] [place] [address] Dr. Lucia Dee Platelet mean volume (Bld) [Entitic vol] 8.9 fL Critically low 9.5-13.5 [facility] Comment on above: Performed By: #### C BC #### [facility] [address] [place] [address] Dr. Lucia Dee PLT 142 103/ul Critically low 150-450 [facility] Comment on above: Performed By: #### C BC #### [facility] [address] [place] [address] Dr. Lucia Dee RBC 4.76 106/ul Normal 4.70-6.10 [facility] Comment on above: Performed By: #### C BC #### [facility] [address] [place] [address] Dr. Lucia Dee WBC 4.2 103/ul Normal 4.0-11.0 [facility] Comment on above: Performed By: #### C BC #### [facility] [address] [place] [address] Dr. Lucia Dee FERRITINon 05-17-2021 Ferritin [Mass/Vol] 809.0 ng/mL Critically high 17.9-464.0 [facility] Comment on above: Performed By: #### F ERR, B12FOL, FETIBC #### [facility] [address] [place] [address] Dr. Lucia Dee IRON AND TIBCon 05-17-2021 % SATURATION 38.0 % Normal [facility] Comment on above: Performed By: #### F ERR, B12FOL, FETIBC #### [facility] [address] [place] [address] Dr. Lucia Dee Iron [Mass/Vol] 119.0 ug/dL Normal 49.0-181.[address] [facility] Comment on above: Performed By: #### F ERR, B12FOL, FETIBC #### [facility] [address] [place], [place] [address] Dr. Lucia Dee TIBC DIRECT 313.0 ug/dL Normal 261.0-497.0 [facility] Comment on above: Performed By: #### F ERR, B12FOL, FETIBC #### [facility] [address] [place], [place] [address] Dr. Lucia Dee VIT B12 AND FOLATEon 021 Cobalamin (Vitamin B12) [Mass/Vol] 674.0 pg/mL Normal 239.0-931.0 [facility] Comment on above: Performed By: #### F ERR, B12FOL, FETIBC #### [facility] [address] [place], [place] [address] Dr. Lucia Dee FOLATE 7.10 ng/mL Normal >=2.76 [facility] Comment on above: Performed By: #### F ERR, B12FOL, FETIBC #### [facility] [address] [place], [place] [address] Dr. Lucia Dee Vital Signs Date Time Vital Sign Value Performing Clinician Facility 02-20-2024 09:57-0400 Body height 185.42 cm [facility] 02-20-2024 09:57-0400 Body mass index (BMI) [Ratio] 27 kg/m2 [facility] 02-20-2024 09:57-0400 Body weight 93.04 kg [facility] 02-20-2024 09:57-0400 Diastolic blood pressure 72 mm[Hg] [facility] 02-20-2024 09:57-0400 Heart rate 67 /min [facility] 02-20-2024 09:57-0400 Respiratory rate 12 /min [facility] 02-20-2024 09:57-0400 Systolic blood pressure 120 mm[Hg] [facility] 10-30-2023 15:30-0500 Body height 185.[address] [employer] Work Phone: [facility] 10-30-2023 15:30-0500 Body mass index (BMI) [Ratio] 29.4 kg/m2 DO [employer] Work Phone: [facility] 10-30-2023 15:30-0500 Body weight 101.15 kg DO Han Ball Work Phone: [facility] 10-30-2023 15:30-0500 Diastolic blood pressure 80 mm[Hg] DO Han Ball Work Phone: [facility] 10-30-2023 15:30-0500 Heart rate 68 /min DO Han Ball Work Phone: [facility] 10-30-2023 15:30-0500 Respiratory rate 12 /min DO Han Ball Work Phone: [facility] 10-30-2023 15:30-0500 Systolic blood pressure 132 mm[Hg] DO Han Ball Work Phone: [facility] 02-14-2023 10:00-0400 Body height 185.42 cm Han Ball Other [facility] [employer] Other 02-14-2023 10:00-0400 Body mass index (BMI) [Ratio] 28.57 kg/m2 Han Ball Other [facility] [employer] Other 02-14-2023 10:00-0400 Body weight 98.25 kg Han Ball Other [facility] Other 02-14-2023 10:00-0400 Diastolic blood pressure 76 mm[Hg] Han Ball Other [facility] Other 02-14-2023 10:00-0400 Respiratory rate 12 /min Han Ball Other [facility] Other 02-14-2023 10:00-0400 Systolic blood pressure 118 mm[Hg] Han Ball Other [facility] Other Encounters Encounter Date Encounter Type Care Provider Facility Start: 02-20-2024 End: 02-20-2024 ambulatory [facility] Work Phone: Start: 02-20-2024 End: 02-20-2024 [facility] Work Phone: Start: 02-13-2024 Non-patient / Non-visit [facility] [place] Work Phone: Start: 01-30-2024 Non-patient / Non-visit [facility] [place] Work Phone: Start: 01-17-2024 Non-patient / Non-visit [facility] [place] Work Phone: Start: 01-07-2024 Non-patient / Non-visit [facility] [place] Work Phone: Start: 01-03-2024 Non-patient / Non-visit [facility] Work Phone: Start: 12-20-2023 Non-patient / Non-visit [facility] Work Phone: Start: 12-10-2023 Non-patient / Non-visit [facility] [place] Work Phone: Start: 12-05-2023 Non-patient / Non-visit [facility] [place] Work Phone: Start: 11-12-2023 End: 11-12-2023 ambulatory Peggy Evelyn Facility:[facility] Start: 11-12-2023 End: 11-12-2023 ambulatory DO Han Diaz Work Phone: [facility] Work Phone: Start: 11-12-2023 End: 11-12-2023 Departed Referred DO Han Diaz Work Phone: [facility] Start: 11-12-2023 Non-patient / Non-visit DO Brant Diaz Work Phone: [facility] [place] Work Phone: Start: 10-30-2023 End: 10-30-2023 Patient encounter procedure DO Han Ball Work Phone: [facility] Work Phone: Start: 10-28-2023 Non-patient / Non-visit DO Brant Diaz Work Phone: [facility] [place] Work Phone: Start: 10-10-2023 Non-patient / Non-visit DO Brant Diaz Work Phone: [facility] [place] Work Phone: Start: 09-05-2023 End: 09-05-2023 ambulatory Han Diaz Other [facility] Other Start: 09-05-2023 Telephone encounter [facility] Start: 06-12-2023 End: 06-12-2023 ambulatory Han Ball Other [facility] Other Start: 06-12-2023 Telephone encounter Han Ball [facility] Start: 05-29-2023 End: 05-29-2023 ambulatory Han Ball Other [facility] Other Start: 05-29-2023 Telephone encounter Han Ball [facility] Start: 02-22-2023 End: 02-22-2023 ambulatory Han Ball Other [facility] Other Start: 02-22-2023 Telephone encounter Han Ball [facility] Start: 02-15-2023 End: 02-15-2023 ambulatory Han Ball Other [facility] Other Start: 02-15-2023 Telephone encounter Han Ball [facility] Start: 02-14-2023 End: 02-14-2023 ambulatory Han Ball Other [facility] Other Start: 02-14-2023 Patient encounter procedure [facility] Start: 02-28-2022 End: 03-01-[address] HAN DIAZ Facility:[facility] Start: 02-08-2022 Adult health examination Han Diaz Other [facility] Other Start: 02-08-2022 End: 02-09-[address] HAN DIAZ Facility:[facility] Start: 05-17-2021 End: 05-18-[address] HAN DIAZ Facility:[facility] Procedures Date Procedure Procedure Detail Performing Clinician Start: 02-08-[address] PEREZ [place] Comment on above: Performed By: #### P [facility] #### [facility] [address] [place] [address] Dr. Lucia Dee Start: 12-23-2018 Screening for malign ant neoplasm of colon Han Diaz Other Depression screening [facility] Other Hyperlipidemia screening Brant Diaz Other Screening for malign ant neoplasm of prostate Han Diaz Other Viral screening [facility] Other Plan of Treatment Date Care Activity Detail Author Start: 10-30-2023 Patient referral [facility] Work Phone: Barium swallow [facility] Comprehensive metabo lic 2000 panel - Serum or Plasma [facility] Patient referral [facility] Work Phone: [facility] Immunizations Immunization Date Immunization Notes Care Provider Fa [facility] 06-24-2018 diphtheria, tetanus toxoids and acellular pertussis vaccine, unspecified formulation Han Diaz Other [facility] Payers Date Payer Category Payer Medicare [id number] 1961 Self-pay 1955 Unknown [id number] 1955 Unknown [id number] Unknown [id number] [id number] Unknown [id number] Social History Date Type Detail Facility Sex Assigned At [facility] Other Start: 1955 Sex Assigned At Male F [facility] Evaluation note 09-05-2023 Note Date & Type Note Facility 09-05-2023 Evaluation note Encounter Date Diagnosis Assessment Notes Aug, CHELE (generalized anxiety disorder) (ICD-10 - F41.1) [facility] Other Evaluation note 05-29-2023 Note Date & Type Note Facility 05-29-2023 Evaluation note Encounter Date Diagnosis Assessment Notes May, Thrombocytopenia (ICD-10 - D69.6) [facility] Other Evaluation note 02-15-2023 Note Date & Type Note Facility 02-15-2023 Evaluation note Encounter Date Diagnosis Assessment Notes Jan, CHELE (generalized anxiety disorder) (ICD-10 - F41.1) [facility] Other Evaluation note 02-14-2023 Note Date & Type Note Facility 02-14-2023 Evaluation note Encounter Date Diagnosis Assessment Notes Jan, Medicare annual wellness visit, subsequent (ICD-10 - Z00.00) Personalized health advice was given to the beneficiary including a written plan for screenings discussed and provided. Advanced care planning reviewed and/or information given as requested. Additional counseling was provided here today in regards to, [ ]. The above visit was performed by [ ], under direct supervision of [ ]. Document reviewed and amended by provider signed below. Jan, CHELE (generalized anxiety disorder) (ICD-10 - F41.1) Healthy diet, exercise and keep active Jan, Overweight (ICD-10 - E66.3) Jan, Benign prostatic hyperplasia with lower urinary tract symptoms (ICD-10 - N40.1) SYmptoms tolerable Yearly PSA and VANESSA Jan, Nocturia (ICD-10 - R35.1) Jan, Cigarette nicotine dependence in remission (ICD-10 - F17.211) DOesn't qualify for LDCT - quit > 15 years ago Jan, Screening PSA (prostate specific antigen) (ICD-10 - Z12.5) Jan, Colon cancer screening (ICD-10 - Z12.11) Yearly FIT through insurance. Due in Jan, High risk medication use (ICD-10 - Z79.899) [facility] Other Evaluation note Note Date & Type Note Facility Evaluation note No Information [facility] Other Evaluation note Note Date & Type Note Facility Evaluation note Diagnosis Onset Date Dysesthesia acute Dysphagia acute Elevated ferritin acute CHELE (generalized anxiety disorder) acute IFG (impaired fasting glucose) acute Thrombocytopenia acute [facility] Work Phone: Evaluation note Note Date & Type Note Facility Evaluation note Diagnosis Onset Date Benign prostatic hyperplasia with lower urinary tract symptoms acute CHELE (generalized anxiety disorder) acute Hemochromatosis acute IFG (impaired fasting glucose) acute Peripheral polyneuropathy ac makah Screening PSA (prostate specific antigen) acute Medicare annual wellness visit, subsequent noneactive [facility] Work Phone: History general Narrative - Reported Note Date & Type Note Facility History general Narrative - Reported Type Medical History CHELE (generalized anxiety disorde r) Medical History Benign prostatic hyp erplasia with lower urinary tract symptoms Medical History Cigarette nicotine dependence in remission Medical History Lumbar spondylosis Medical History Thrombocytopenia [facility] Other History general Narrative - Reported Note Date & Type Note Facility History general Narrative - Reported Type Medical History CHELE (generalized anxiety disorde r) Medical History Benign prostatic hyp erplasia with lower urinary tract symptoms Medical History Cigarette nicotine dependence in remission Medical History Lumbar spondylosis Medical History Thrombocytopenia Surgical History Problem Title : Non- Contributory Past Surgical History, Problem Status : Active, Surgical History Problem Title : past surgical history reviewed, Problem Description : past surgical history reviewed, Problem Comment : reviewed - no changes required, Problem Status : Resolved, [facility] Other Summary Purpose Family History Relationship Condition Age at Onset Recorded Date/T marianela father Unknown Not Specified Unknown Heart disease Unknown Relationship Condition Age at Onset Recorded Date/T marianela father Unknown mother Unknown Heart disease Unknown Advance Directives Advance Directive Response Recorded Date/ Time Advance Directives No September 19, 2023 2:23pm Chief Complaint and Reason for Visit Chief Complaint Check Up-Lab Results Unknown Reason for Visit Dysesthesia Dysphagia Elevated ferritin CHELE (generalized anxiety disorder) IFG (impaired fasting glucose) Thrombocytopenia Chief Complaint Wellness Reason for Visit Benign prostatic hyp erplasia with lower urinary tract symptoms CHELE (generalized anxiety disorder) Hemochromatosis IFG (impaired fasting glucose) Peripheral polyneuropathy Screening PSA (prostate specific antigen) Medicare annual wellness visit, subsequent Additional Source Comments (unrecognized sect ion and content) No Status Records FoundNo Status Records Found INFORMATION SOURCE (unrecogn ized section and content) DATE CREATED AUTHOR 03/01/2022 [facility] DATE CREATED AUTHOR 'S ORGANIZ ATION 11/14/2023 [facility] REASON FOR VISIT (unrecogniz ed section and content) WELLNESSMedicationLab Result srepeat labsLab resultsRefgeorgetown [facility] Care Teams (unrecognized sec tion and content) Team Status: Active Member Role Status Juana Diaz DO Primary Care Provider Active Team Status: Active Member Role Status Juana Diaz DO Primary Care Provide r, Attending Provider Active Start: October 10, 2023 Team Status: Active Member Role Status Juana Diaz DO Primary Care Provide r, Attending Provider Active Start: October 28, 2023 Team Status: Inactive Member Role Status Juana Diaz DO Primary Care Provide r, Attending Provider Active Start: October 30, 2023 End: October 30, 2023 Team Status: Active Member Role Status Juana Diaz DO Primary Care Provide r, Attending Provider Active Start: November 12, 2023 Team Status: Inactive Member Role Status Juana Diaz DO Primary Care Provider Active Start: November 12, 2023 End: November 12, 2023 Peggy Rivas MD Attending Provider Active St art: November 12, 2023 End: November 12, 2023 Team Status: Active Member Role Status Juana Diaz DO Primary Care Provide r, Attending Provider Active Start: December 05, 2023 Team Status: Active Member Role Status Juana Diaz DO Primary Care Provide r, Attending Provider Active Start: December 10, 2023 Team Status: Active Member Role Status Juana Diaz DO Primary Care Provider Active Start: December 20, 2023 Peggy Rivas MD Attending Provider Active St art: December 20, 2023 Team Status: Active Member Role Status Dates Han Diaz DO Primary Care Provider Active Start: January 03, 2024 Peggy Rivas MD Attending Provider Active St art: January 03, 2024 Team Status: Active Member Role Status Dates Han Diaz , Primary Care Provider Active Start: January 07, 2024 Peggy Rivas MD Attending Provider Active St art: January 07, 2024 Team Status: Active Member Role Status Dates Han Diaz DO Primary Care Provider Active Start: January 17, 2024 Peggy Rivas MD Attending Provider Active St art: January 17, 2024 Team Status: Active Member Role Status Juana Diaz DO Primary Care Provider Active Start: January 30, 2024 Peggy Rivas MD Attending Provider Active St art: January 30, 2024 Team Status: Active Member Role Status Juana Diaz DO Primary Care Provider Active Start: February 13, 2024 Peggy iRvas MD Attending Provider Active St art: February 13, 2024 Team Status: Inactive Member Role Status Dates Han Diaz DO Primary Care Provide r, Attending Provider Active Start: February 20, 2024 End: February 20, 2024 Goals (unrecognized section and content) Goals may be documented in a n alternate section FOR RECORDS PERTAINING TO PATIENTS WHO ARE OR HAVE BEEN ENROLLED IN A CHEMICAL DEPENDENCY/SUBSTANCEABUSE PROGRAM, SOME INFORMATION MAY BE OMITTED. This clinical summary was aggregated from multiple sources. Caution should be exercised in using it in the provision of clinical care. This summary normalizes information from multiple sources, and as a consequence, information in this document may materially change the coding, format and clinical context of patient data. In addition, data may be omitted in some cases. CLINICAL DECISIONS SHOULD BE BASED ON THE PRIMARY CLINICAL RECORDS. [facility] [employer] [facility]. provides no warranty or guarantee of the accuracy or completeness of information in this document.
[2024-02-25 14:33] LABS: Estimated Average Glucose 97 mg/dL
[2024-02-25 14:44] LABS: Alanine Aminotransferase 33 U/L (16-63); Albumin Globulin Ratio 1.2; Albumin Level 3.9 g/dL (3.4-5.0); Alkaline Phosphatase 76 U/L (46-116); Anion Gap 13.1; Aspartate Amino Transferase 15 U/L (15-37); BUN Creatinine Ratio 14.9; Bilirubin Total 0.6 mg/dL (0.2-1.0); Calcium 9.1 mg/dL (8.5-10.1); Carbon Dioxide 24.9 mmol/L (21.0-32.0); Chloride 105 mmol/L (98-107); Chol HDL Ratio 3.3; Cholesterol 173 mg/dL (<=200); Estimated GFR (African America >60 (>=60); Estimated GFR (Non-African Ame >60 (>=60); Globulin 3.2 g/dL; Glucose 107 mg/dL (74-106); HDL Cholesterol 53 mg/dL (40-60); LDL Cholesterol Calculated 104.6 mg/dL; Sodium 139 mmol/L (136-145); Total Protein 7.1 g/dL (6.4-8.2); Triglycerides 77 mg/dL (<=150); VLDL CHOLESTEROL 15.4 mg/dL
[2024-02-25 15:04] LABS: Prostate Specific Antigen Scrn 1.01 ng/mL (<=4.00)
== END 2024-02-25 13:58 | disposition home or self-care (01) ==
LOC: LAB 13:57
PROVIDERS: PCP Internal Medicine; Visit Provider Internal Medicine
DX: Z12.5 Encounter for screening for malignant neoplasm of prostate (principal); E78.00 Pure hypercholesterolemia, unspecified; R73.01 Impaired fasting glucose; G62.9 Polyneuropathy, unspecified; E83.119 Hemochromatosis, unspecified
CPT/HCPCS: 36415; 80053; 80061; 83036; G0103

== ENCOUNTER 2024-04-14 15:45 | Outpatient (OUT) | payer MEDICARE, SELFPAY ==
--- OUTSIDE RECORDS SUMMARY | 2024-04-14 15:58 | XMS_ITS | CCD ---
Author Organization [facility] Care Team Providers Care Chemical Mixer Name Role Phone JOE, DR SHORT Primary [...] Unavailable Joe, DO Short Primary Care Provider MD Peggy Rivas Attending Provider [phone] Allergies Allergy Classification Reported Allergen(s) Allergy Type Date of Onset Reaction(s) Facility (6 sources) Penicillin Drug Allergy Unknown [facility] Other (3 sources) patient allergy list reviewed by nurse or physicia Propensity to adverse reactions 12-24-19 Comment:Done [facility] Other (3 sources) Substance with penicillin structure and antibacterial mechanism of action (substance) Drug allergy Unknown [facility] Other (1 source) Penicillins Drug allergy (disorder) 10-30-19 24 [facility] Repository Medications Current Medications Medication Drug Class(es) [...] 05-27-2018 Chronic Other aftercare (5 sources) 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; Translations: [OTH SALES CONSULTANT INSURANCE CURRENT DRUG THERAPY] Onset: 02-08-2022 Episodic Other aftercare (3 sources) Long-term current use of drug therapy; 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] Episodic Other ear and [...] Basophils (Bld) [#/Vol] 0.0 10 3/uL 0.0-0.1 [facility] Basophils/100 WBC Auto (Bld) on 02-13-2024 Basophils/100 WBC (Bld) 0.5 % 0.2-2.0 [facility] Eosinophils/100 WBC Auto (Bl d)on 02-13-2024 Eosinophils/100 WBC (Bld) 1.4 % 0.9-7.0 [facility] Erythrocyte distribution wid th Auto (RBC) [Ratio]on 02-13-2024 Erythrocyte distribution width (RBC) [Ratio] 12.8 % 11.0-15.0 [facility] Hematocrit Auto (Bld) [Volum e fraction]on 02-13-2024 Hematocrit (Bld) [Volume fraction] 39.3 % Low 42.0-54.0 [facility] Hemoglobin [Mass/volume] in Bloodon 02-13-2024 Hemoglobin (Bld) [Mass/Vol] 13.0 g/dL Low 14.0-18.0 [facility] Iron binding capacity [Mass/ volume] in Serum or Plasmaon 02-13-2024 Iron binding capacity [Mass/Vol] 346.0 ug/dL 250.0-450.0 [facility] Iron saturation [Mass Fracti on] in Serum or Plasmaon 02-13-2024 Iron saturation [Mass fraction] 19.1 % [facility] Laboratory - Chemistry and C hemistry - challengeon 02-13-2024 Ferritin [Mass/Vol] 98.0 ng/mL 26.0-388.0 [facility] Iron [Mass/Vol] 66.0 ug/dL 65.0-175.0 [facility] Laboratory - Hematology and Cell countson 02-13-2024 Immature granulocytes/100 WBC (Bld) 0.3 % 0.0-0.5 [facility] Leukocytes [#/volume] correc nohemy for nucleated erythrocytes in Blood by Automated counon 02-13-2024 WBC corrected for nucl RBC Auto (Bld) [#/Vol] 3.7 10 3/uL Low 4.0-11.0 [facility] Lymphocytes Auto (Bld) [#/Vo l]on 02-13-2024 Lymphocytes (Bld) [#/Vol] 0.8 10 3/uL Low 1.2-3.8 [facility] Lymphocytes/100 WBC Auto (Bl d)on 02-13-2024 Lymphocytes/100 WBC (Bld) 21.4 % 20.5-60.0 [facility] MCH Auto (RBC) [Entitic mass ]on 02-13-2024 MCH (RBC) [Entitic mass] 31.0 pg 25.9-34.0 [facility] MCHC Auto (RBC) [Mass/Vol]on 02-13-2024 MCHC (RBC) [Mass/Vol] 33.1 g/dL 29.9-35.[address] [facility] MCV Auto (RBC) [Entitic vol] on 02-13-2024 MCV (RBC) [Entitic vol] 93.6 fL 80.0-94.0 [facility] Monocytes Auto (Bld) [#/Vol] on 02-13-2024 Monocytes (Bld) [#/Vol] 0.3 10 3/uL 0.3-0.8 [facility] Monocytes/100 WBC Auto (Bld) on 02-13-2024 Monocytes/100 WBC (Bld) 7.0 % 1.7-12.0 [facility] Neutrophils Auto (Bld) [#/Vo l]on 02-13-2024 Neutrophils (Bld) [#/Vol] 2.6 10 3/uL 1.4-6.5 [facility] Neutrophils/100 WBC Auto (Bl d)on 02-13-2024 Neutrophils/100 WBC (Bld) 69.4 % 43.0-75.0 [facility] No Panel Informationon 02-12 Eosinophils # (Auto) 0.1 10 3/uL 0.0-0.[address] [facility] Immature Granulocyte # (Auto) 0.01 10 3/uL 0.00-0.03 [facility] Platelet mean volume Auto (B ld) [Entitic vol]on 02-13-2024 Platelet mean volume (Bld) [Entitic vol] 9.2 fL Low 9.5-13.5 [facility] Platelets Auto (Bld) [#/Vol] on 02-13-2024 Platelets (Bld) [#/Vol] 143 10 3/uL Low 150-450 [facility] RBC Auto (Bld) [#/Vol]on RBC (Bld) [#/Vol] 4.20 10 6/uL Low 4.70-6.10 [facility] Iron binding capacity [Mass/ volume] in Serum or Plasmaon 01-30-2024 Iron binding capacity [Mass/Vol] 324.0 ug/dL 250.0-450.0 [facility] Iron saturation [Mass Fracti on] in Serum or Plasmaon 01-30-2024 Iron saturation [Mass fraction] 25.9 % [facility] Laboratory - Chemistry and C hemistry - challengeon 01-30-2024 Ferritin [Mass/Vol] 165.0 ng/mL 26.0-388.0 [facility] Iron [Mass/Vol] 84.0 ug/dL 65.0-175.0 [facility] Basophils Auto (Bld) [#/Vol] on 01-17-2024 Basophils (Bld) [#/Vol] 0.0 10 3/uL 0.0-0.1 [facility] Basophils/100 WBC Auto (Bld) on 01-17-2024 Basophils/100 WBC (Bld) 0.5 % 0.2-2.0 [facility] Eosinophils/100 WBC Auto (Bl d)on 01-17-2024 Eosinophils/100 WBC (Bld) 1.4 % 0.9-7.0 [facility] Erythrocyte distribution wid th Auto (RBC) [Ratio]on 01-17-2024 Erythrocyte distribution width (RBC) [Ratio] 13.3 % 11.0-15.0 [facility] Hematocrit Auto (Bld) [Volum e fraction]on 01-17-2024 Hematocrit (Bld) [Volume fraction] 36.9 % Low 42.0-54.0 [facility] Hemoglobin [Mass/volume] in Bloodon 01-17-2024 Hemoglobin (Bld) [Mass/Vol] 12.3 g/dL Low 14.0-18.0 [facility] Iron binding capacity [Mass/ volume] in Serum or Plasmaon 01-17-2024 Iron binding capacity [Mass/Vol] 321.0 ug/dL 250.0-450.0 [facility] Iron saturation [Mass Fracti on] in Serum or Plasmaon 01-17-2024 Iron saturation [Mass fraction] 30.8 % [facility] Laboratory - Chemistry and C hemistry - challengeon 01-17-2024 Ferritin [Mass/Vol] 183.0 ng/mL 26.0-388.0 [facility] Iron [Mass/Vol] 99.0 ug/dL 65.0-175.0 [facility] Laboratory - Hematology and Cell countson 01-17-2024 Immature granulocytes/100 WBC (Bld) 0.8 % High 0.0-0.5 [facility] Leukocytes [#/volume] correc nohemy for nucleated erythrocytes in Blood by Automated counon 01-17-2024 WBC corrected for nucl RBC Auto (Bld) [#/Vol] 3.7 10 3/uL Low 4.0-11.0 [facility] Lymphocytes Auto (Bld) [#/Vo l]on 01-17-2024 Lymphocytes (Bld) [#/Vol] 0.9 10 3/uL Low 1.2-3.8 [facility] Lymphocytes/100 WBC Auto (Bl d)on 01-17-2024 Lymphocytes/100 WBC (Bld) 25.2 % 20.5-60.0 [facility] MCH Auto (RBC) [Entitic mass ]on 01-17-2024 MCH (RBC) [Entitic mass] 31.9 pg 25.9-34.0 [facility] MCHC Auto (RBC) [Mass/Vol]on 01-17-2024 MCHC (RBC) [Mass/Vol] 33.3 g/dL 29.9-35.2 [facility] MCV Auto (RBC) [Entitic vol] on 01-17-2024 MCV (RBC) [Entitic vol] 95.8 fL High 80.0-94.0 [facility] Monocytes Auto (Bld) [#/Vol] on 01-17-2024 Monocytes (Bld) [#/Vol] 0.3 10 3/uL 0.3-0.8 [facility] Monocytes/100 WBC Auto (Bld) on 01-17-2024 Monocytes/100 WBC (Bld) 7.0 % 1.7-12.0 [facility] Neutrophils Auto (Bld) [#/Vo l]on 01-17-2024 Neutrophils (Bld) [#/Vol] 2.4 10 3/uL 1.4-6.5 [facility] Neutrophils/100 WBC Auto (Bl d)on 01-17-2024 Neutrophils/100 WBC (Bld) 65.1 % 43.0-75.0 [facility] No Panel Informationon 01-16 Eosinophils # (Auto) 0.1 10 3/uL 0.0-0.7 [facility] Immature Granulocyte # (Auto) 0.03 10 3/uL 0.00-0.03 [facility] Platelet mean volume Auto (B ld) [Entitic vol]on 01-17-2024 Platelet mean volume (Bld) [Entitic vol] 8.9 fL Low 9.5-13.5 [facility] Platelets Auto (Bld) [#/Vol] on 01-17-2024 Platelets (Bld) [#/Vol] 126 10 3/uL Low 150-450 [facility] RBC Auto (Bld) [#/Vol]on RBC (Bld) [#/Vol] 3.85 10 6/uL Low 4.70-6.10 [facility] Basophils Auto (Bld) [#/Vol] on 01-07-2024 Basophils (Bld) [#/Vol] 0.0 10 3/uL 0.0-0.1 [facility] Basophils/100 WBC Auto (Bld) on 01-07-2024 Basophils/100 WBC (Bld) 0.5 % 0.2-2.0 [facility] Eosinophils/100 WBC Auto (Bl d)on 01-07-2024 Eosinophils/100 WBC (Bld) 1.6 % 0.9-7.0 [facility] Erythrocyte distribution wid th Auto (RBC) [Ratio]on 01-07-2024 Erythrocyte distribution width (RBC) [Ratio] 13.4 % 11.0-15.0 [facility] Hematocrit Auto (Bld) [Volum e fraction]on 01-07-2024 Hematocrit (Bld) [Volume fraction] 35.8 % Low 42.0-54.0 [facility] Hemoglobin [Mass/volume] in Bloodon 01-07-2024 Hemoglobin (Bld) [Mass/Vol] 12.0 g/dL Low 14.0-18.0 [facility] Laboratory - Hematology and Cell countson 01-07-2024 Immature granulocytes/100 WBC (Bld) 0.5 % 0.0-0.5 [facility] Leukocytes [#/volume] correc nohemy for nucleated erythrocytes in Blood by Automated counon 01-07-2024 WBC corrected for nucl RBC Auto (Bld) [#/Vol] 3.8 10 3/uL Low 4.0-11.0 [facility] Lymphocytes Auto (Bld) [#/Vo l]on 01-07-2024 Lymphocytes (Bld) [#/Vol] 0.7 10 3/uL Low 1.2-3.8 [facility] Lymphocytes/100 WBC Auto (Bl d)on 01-07-2024 Lymphocytes/100 WBC (Bld) 18.6 % Low 20.5-60.0 [facility] MCH Auto (RBC) [Entitic mass ]on 01-07-2024 MCH (RBC) [Entitic mass] 32.2 pg 25.9-34.0 [facility] MCHC Auto (RBC) [Mass/Vol]on 01-07-2024 MCHC (RBC) [Mass/Vol] 33.5 g/dL 29.9-35.2 [facility] MCV Auto (RBC) [Entitic vol] on 01-07-2024 MCV (RBC) [Entitic vol] 96.0 fL High 80.0-94.0 [facility] Monocytes Auto (Bld) [#/Vol] on 01-07-2024 Monocytes (Bld) [#/Vol] 0.3 10 3/uL 0.3-0.8 [facility] Monocytes/100 WBC Auto (Bld) on 01-07-2024 Monocytes/100 WBC (Bld) 7.6 % 1.7-12.0 [facility] Neutrophils Auto (Bld) [#/Vo l]on 01-07-2024 Neutrophils (Bld) [#/Vol] 2.7 10 3/uL 1.4-6.5 [facility] Neutrophils/100 WBC Auto (Bl d)on 01-07-2024 Neutrophils/100 WBC (Bld) 71.2 % 43.0-75.0 [facility] No Panel Informationon 01-06 Eosinophils # (Auto) 0.1 10 3/uL 0.0-0.7 [facility] Immature Granulocyte # (Auto) 0.02 10 3/uL 0.00-0.03 [facility] Platelet mean volume Auto (B ld) [Entitic vol]on 01-07-2024 Platelet mean volume (Bld) [Entitic vol] 8.9 fL Low 9.5-13.5 [facility] Platelets Auto (Bld) [#/Vol] on 01-07-2024 Platelets (Bld) [#/Vol] 127 10 3/uL Low 150-450 [facility] RBC Auto (Bld) [#/Vol]on RBC (Bld) [#/Vol] 3.73 10 6/uL Low 4.70-6.10 [facility] Iron binding capacity [Mass/ volume] in Serum or Plasmaon 01-03-2024 Iron binding capacity [Mass/Vol] 332.0 ug/dL 250.0-450.0 [facility] Iron saturation [Mass Fracti on] in Serum or Plasmaon 01-03-2024 Iron saturation [Mass fraction] 28.9 % [facility] Laboratory - Chemistry and C hemistry - challengeon 01-03-2024 Ferritin [Mass/Vol] 300.0 ng/mL 26.0-388.0 [facility] Iron [Mass/Vol] 96.0 ug/dL 65.0-175.0 [facility] Iron binding capacity [Mass/ volume] in Serum or Plasmaon 12-20-2023 Iron binding capacity [Mass/Vol] 301.0 ug/dL 250.0-450.0 [facility] Iron saturation [Mass Fracti on] in Serum or Plasmaon 12-20-2023 Iron saturation [Mass fraction] 31.6 % [facility] Laboratory - Chemistry and C hemistry - challengeon 12-20-2023 Ferritin [Mass/Vol] 449.0 ng/mL High 26.0-388.0 [facility] Iron [Mass/Vol] 95.0 ug/dL 65.0-175.0 [facility] Basophils Auto (Bld) [#/Vol] on 12-10-2023 Basophils (Bld) [#/Vol] 0.0 10 3/uL 0.0-0.1 [facility] Basophils/100 WBC Auto (Bld) on 12-10-2023 Basophils/100 WBC (Bld) 0.8 % 0.2-2.0 [facility] Eosinophils/100 WBC Auto (Bl d)on 12-10-2023 Eosinophils/100 WBC (Bld) 1.4 % 0.9-7.0 [facility] Erythrocyte distribution wid th Auto (RBC) [Ratio]on 12-10-2023 Erythrocyte distribution width (RBC) [Ratio] 13.2 % 11.0-15.0 [facility] Estimated glomerular filtrat ion rate (GFR) non- Americanon 12-10-2023 GFR/1.73 sq M.predicted among non-blacks MDRD (S/P/Bld) [Vol rate/Area] mL/min/{1.73_m2} >=60 [facility] Globulin Calc (S) [Mass/Vol] on 12-10-2023 Globulin (S) [Mass/Vol] 3.2 g/dL [facility] Hematocrit Auto (Bld) [Volum e fraction]on 12-10-2023 Hematocrit (Bld) [Volume fraction] 37.1 % Low 42.0-54.0 [facility] Hemoglobin [Mass/volume] in Bloodon 12-10-2023 Hemoglobin (Bld) [Mass/Vol] 12.2 g/dL Low 14.0-18.0 [facility] Iron binding capacity [Mass/ volume] in Serum or Plasmaon 12-10-2023 Iron binding capacity [Mass/Vol] 284.0 ug/dL 250.0-450.0 [facility] Iron saturation [Mass Fracti on] in Serum or Plasmaon 12-10-2023 Iron saturation [Mass fraction] 32.0 % [facility] Laboratory - Chemistry and C hemistry - challengeon 12-10-2023 Albumin [Mass/Vol] 3.9 g/dL 3.4-5.0 [facility] ALP [Catalytic activity/Vol] 74 U/L 46-116 [facility] ALT [Catalytic activity/Vol] 33 U/L 16-63 [facility] AST [Catalytic activity/Vol] 18 U/L 15-37 [facility] Bilirubin [Mass/Vol] 0.7 mg/dL 0.2-1.0 [facility] Calcium [Mass/Vol] 9.1 mg/dL 8.5-10.1 [facility] Chloride [Moles/Vol] 106 mmol/L 98-107 [facility] CO2 [Moles/Vol] 23.3 mmol/L 21.0-32.0 [facility] Creatinine [Mass/Vol] 1.19 mg/dL 0.70-1.30 [facility] Ferritin [Mass/Vol] 507.0 ng/mL High 26.0-388.0 [facility] GFR/1.73 sq M.predicted MDRD (S/P/Bld) [Vol rate/Area] mL/min/{1.73_m2} >=60 [facility] Glucose [Mass/Vol] 125 mg/dL High 74-106 [facility] Iron [Mass/Vol] 91.0 ug/dL 65.0-175.0 [facility] Potassium [Moles/Vol] 4.0 mmol/L 3.5-5.1 [facility] Protein [Mass/Vol] 7.1 g/dL 6.4-8.2 [facility] Sodium [Moles/Vol] 141 mmol/L 136-145 [facility] Urea nitrogen [Mass/Vol] 16.0 mg/dL 7.0-18.0 [facility] Urea nitrogen/Creatinine [Mass ratio] 13.4 mg/mg [facility] Laboratory - Hematology and Cell countson 12-10-2023 Immature granulocytes/100 WBC (Bld) 0.6 % High 0.0-0.5 [facility] Leukocytes [#/volume] correc nohemy for nucleated erythrocytes in Blood by Automated counon 12-10-2023 WBC corrected for nucl RBC Auto (Bld) [#/Vol] 3.6 10 3/uL Low 4.0-11.0 [facility] Lymphocytes Auto (Bld) [#/Vo l]on 12-10-2023 Lymphocytes (Bld) [#/Vol] 1.1 10 3/uL Low 1.2-3.8 [facility] Lymphocytes/100 WBC Auto (Bl d)on 12-10-2023 Lymphocytes/100 WBC (Bld) 30.1 % 20.5-60.0 [facility] MCH Auto (RBC) [Entitic mass ]on 12-10-2023 MCH (RBC) [Entitic mass] 31.4 pg 25.9-34.0 [facility] MCHC Auto (RBC) [Mass/Vol]on 12-10-2023 MCHC (RBC) [Mass/Vol] 32.9 g/dL 29.9-35.2 [facility] MCV Auto (RBC) [Entitic vol] on 12-10-2023 MCV (RBC) [Entitic vol] 95.6 fL High 80.0-94.0 [facility] Monocytes Auto (Bld) [#/Vol] on 12-10-2023 Monocytes (Bld) [#/Vol] 0.2 10 3/uL Low 0.3-0.8 [facility] Monocytes/100 WBC Auto (Bld) on 12-10-2023 Monocytes/100 WBC (Bld) 5.8 % 1.7-12.0 [facility] Neutrophils Auto (Bld) [#/Vo l]on 12-10-2023 Neutrophils (Bld) [#/Vol] 2.2 10 3/uL 1.4-6.5 [facility] Neutrophils/100 WBC Auto (Bl d)on 12-10-2023 Neutrophils/100 WBC (Bld) 61.3 % 43.0-75.0 [facility] No Panel Informationon 12-09 Eosinophils # (Auto) 0.1 10 3/uL 0.0-0.7 [facility] Immature Granulocyte # (Auto) 0.02 10 3/uL 0.00-0.03 [facility] Platelet mean volume Auto (B ld) [Entitic vol]on 12-10-2023 Platelet mean volume (Bld) [Entitic vol] 9.4 fL Low 9.5-13.5 [facility] Platelets Auto (Bld) [#/Vol] on 12-10-2023 Platelets (Bld) [#/Vol] 130 10 3/uL Low 150-450 [facility] RBC Auto (Bld) [#/Vol]on RBC (Bld) [#/Vol] 3.88 10 6/uL Low 4.70-6.10 [facility] Serum or plasma albumin/glob ulin mass ratioon 12-10-2023 Albumin/Globulin [Mass ratio] 1.2 {ratio} [facility] Serum or plasma anion gap de terminationon 12-10-2023 Anion gap [Moles/Vol] 15.7 [facility] Iron binding capacity [Mass/ volume] in Serum or Plasmaon 12-05-2023 Iron binding capacity [Mass/Vol] 332.0 ug/dL 250.0-450.0 [facility] Iron saturation [Mass Fracti on] in Serum or Plasmaon 12-05-2023 Iron saturation [Mass fraction] 31.0 % [facility] Laboratory - Chemistry and C hemistry - challengeon 12-05-2023 Ferritin [Mass/Vol] 597.0 ng/mL High 26.0-388.0 [facility] Iron [Mass/Vol] 103.0 ug/dL 65.0-175.0 [facility] Basophils Auto (Bld) [#/Vol] on 11-12-2023 Basophils (Bld) [#/Vol] 0.0 10 3/uL 0.0-0.1 [facility] Basophils/100 WBC Auto (Bld) on 11-12-2023 Basophils/100 WBC (Bld) 0.5 % 0.2-2.0 [facility] Eosinophils/100 WBC Auto (Bl d)on 11-12-2023 Eosinophils/100 WBC (Bld) 1.0 % 0.9-7.0 [facility] Erythrocyte distribution wid th Auto (RBC) [Ratio]on 11-12-2023 Erythrocyte distribution width (RBC) [Ratio] 13.2 % 11.0-15.0 [facility] Hematocrit Auto (Bld) [Volum e fraction]on 11-12-2023 Hematocrit (Bld) [Volume fraction] 43.8 % 42.0-54.0 [facility] Hemoglobin [Mass/volume] in Bloodon 11-12-2023 Hemoglobin (Bld) [Mass/Vol] 14.7 g/dL 14.0-18.0 [facility] Malvin 11-12-2023 L Specimen: Received: 11/13/23 Status: JOSE Krishna Num: [id number] Spec Type: Impression Subm Dr: Peggy Rivas MD Tissues: PATHPER Procedures: PATHREVIEW Age/ Patient Sex Location Account Attending Physician Yuri No 68/M [facility]ELL [id number] Peggy Rivas MD SPEC NUM: RECD: 11/13/23 STATUS: MELBAAdriana KRISHNA NUM: [id number] REGINALDO: 11/12/[address]: Peggy Rivas MD ENTERED: 11/13/[address] [facility] DR: SPEC TYPE: Impression DEPT: ALIA Cardenas ENTERED BY: [id number] RECV BY: [id number] ORDERED: PATHREVIEW ORDERED: PATHREVIEW Pathologist Review Thrombocytopenia Is Noted. No Significant Increase In Schistocytes Or Spherocytes Is Identified. Differential Diagnosis Includes Peripheral Etiology (e.g. ITP, Drug-induced) Vs. Bone Marrow Disorder. Clinical Correlation Is Required. Specimen: [id number] Received: 11/13/23 Status: JOSE Sewellparamjit Num: [id number] Spec Type: Impression Subm Dr: Peggy Rivas MD Tissues: PATHPER Procedures: PATHREVIEW Patient: Yuri No [id number] (Continued) Signed (signatur e on file) Conner Naqvi MD 11/13/23 1540 [facility] Laboratory - Chemistry and C hemistry - challengeon 11-12-2023 LDH [Catalytic activity/Vol] 240 U/L 85-227 [facility] Laboratory - Hematology and Cell countson 11-12-2023 Immature granulocytes/100 WBC (Bld) 0.8 % 0.0-0.5 [facility] Leukocytes [#/volume] correc nohemy for nucleated erythrocytes in Blood by Automated counon 11-12-2023 WBC corrected for nucl RBC Auto (Bld) [#/Vol] 4.0 10 3/uL 4.0-11.0 [facility] Lymphocytes Auto (Bld) [#/Vo l]on 11-12-2023 Lymphocytes (Bld) [#/Vol] 0.9 10 3/uL 1.2-3.8 [facility] Lymphocytes/100 WBC Auto (Bl d)on 11-12-2023 Lymphocytes/100 WBC (Bld) 21.4 % 20.5-60.0 [facility] MCH Auto (RBC) [Entitic mass ]on 11-12-2023 MCH (RBC) [Entitic mass] 31.7 pg 25.9-34.0 [facility] MCHC Auto (RBC) [Mass/Vol]on 11-12-2023 MCHC (RBC) [Mass/Vol] 33.6 g/dL 29.9-35.[address] [facility] [facility] MCV Auto (RBC) [Entitic vol] on 11-12-2023 MCV (RBC) [Entitic vol] 94.4 fL 80.0-94.0 [facility] Monocytes Auto (Bld) [#/Vol] on 11-12-2023 Monocytes (Bld) [#/Vol] 0.3 10 3/uL 0.3-0.8 [facility] Monocytes/100 WBC Auto (Bld) on 11-12-2023 Monocytes/100 WBC (Bld) 6.5 % 1.7-12.0 [facility] Neutrophils Auto (Bld) [#/Vo l]on 11-12-2023 Neutrophils (Bld) [#/Vol] 2.8 10 3/uL 1.4-6.5 [facility] Neutrophils/100 WBC Auto (Bl d)on 11-12-2023 Neutrophils/100 WBC (Bld) 69.8 % 43.0-75.0 [facility] No Panel Informationon 11-11 Eosinophils # (Auto) 0.0 10 3/uL 0.0-0.[address] [facility] [facility] Immature Granulocyte # (Auto) 0.03 10 3/uL 0.00-0.03 [facility] Platelet mean volume Auto (B ld) [Entitic vol]on 11-12-2023 Platelet mean volume (Bld) [Entitic vol] 8.9 fL 9.5-13.5 [facility] Platelets Auto (Bld) [#/Vol] on 11-12-2023 Platelets (Bld) [#/Vol] 126 10 3/uL 150-450 [facility] RBC Auto (Bld) [#/Vol]on RBC (Bld) [#/Vol] 4.64 10 6/uL 4.70-6.10 [facility] Albumin [Mass/volume] in Ser um or Plasmaon 10-28-2023 Albumin [Mass/Vol] 4.0 g/dL 2.9-4.4 [facility] Basophils Auto (Bld) [#/Vol] on 10-28-2023 Basophils (Bld) [#/Vol] 0.0 10 3/uL 0.0-0.1 [facility] Basophils/100 WBC Auto (Bld) on 10-28-2023 Basophils/100 WBC (Bld) 0.5 % 0.2-2.0 [facility] Eosinophils/100 WBC Auto (Bl d)on 10-28-2023 Eosinophils/100 WBC (Bld) 1.4 % 0.9-7.0 [facility] Erythrocyte distribution wid th Auto (RBC) [Ratio]on 10-28-2023 Erythrocyte distribution width (RBC) [Ratio] 13.2 % 11.0-15.0 [facility] Hematocrit Auto (Bld) [Volum e fraction]on 10-28-2023 Hematocrit (Bld) [Volume fraction] 42.8 % 42.0-54.0 [facility] Hemoglobin [Mass/volume] in Bloodon 10-28-2023 Hemoglobin (Bld) [Mass/Vol] 14.5 g/dL 14.0-18.0 [facility] IgA [Mass/volume] in Serum o r Plasmaon 10-28-2023 IgA [Mass/Vol] 219 mg/dL 61-437 [facility] IgG [Mass/volume] in Serum o r Plasmaon 10-28-2023 IgG [Mass/Vol] 927 mg/dL 603-1613 [facility] IgM [Mass/volume] in Serum o r Plasmaon 10-28-2023 IgM [Mass/Vol] 34 mg/dL 20-172 [facility] Immunoglobulin light chains. kappa.free [Mass/volume] in Serumon 10-28-2023 Immunoglobulin light chains.kappa.free (S) [Mass/Vol] 24.1 mg/L 3.3-19.4 [facility] Immunoglobulin light chains. kappa.free/Immunoglobulin light chains.lambda.free [Pebbles 10-28-2023 Immunoglobulin light chains.kappa.free/Immunog lobulin light chains.lambda.free (S) [Mass ratio] 1.64 0.26-1.65 [facility] Comment on above: Performed at: [address] [id number] Director: You Barrow PhD, Phone: [phone] Immunoglobulin light chains. lambda.free [Mass/volume] in Serum or Plasmaon 10-28-2023 Immunoglobulin light chains.lambda.free [Mass/Vol] 14.7 mg/L 5.7-26.3 [facility] Iron binding capacity [Mass/ volume] in Serum or Plasmaon 10-28-2023 Iron binding capacity [Mass/Vol] 293.0 ug/dL 250.0-450.0 [facility] Iron saturation [Mass Fracti on] in Serum or Plasmaon 10-28-2023 Iron saturation [Mass fraction] 36.9 % [facility] Laboratory - Chemistry and C hemistry - challengeon 10-28-2023 Ferritin [Mass/Vol] 709.0 ng/mL 26.0-388.0 [facility] Iron [Mass/Vol] 108.0 ug/dL 65.0-175.0 [facility] Laboratory - Hematology and Cell countson 10-28-2023 ESR (Bld) [Velocity] 27 mm/h <=20 [facility] Immature granulocytes/100 WBC (Bld) 0.5 % 0.0-0.5 [facility] Leukocytes [#/volume] correc nohemy for nucleated erythrocytes in Blood by Automated counon 10-28-2023 WBC corrected for nucl RBC Auto (Bld) [#/Vol] 4.2 10 3/uL 4.0-11.0 [facility] Lymphocytes Auto (Bld) [#/Vo l]on 10-28-2023 Lymphocytes (Bld) [#/Vol] 0.9 10 3/uL 1.2-3.8 [facility] Lymphocytes/100 WBC Auto (Bl d)on 10-28-2023 Lymphocytes/100 WBC (Bld) 21.4 % 20.5-60.0 [facility] MCH Auto (RBC) [Entitic mass ]on 10-28-2023 MCH (RBC) [Entitic mass] 31.5 pg 25.9-34.0 [facility] MCHC Auto (RBC) [Mass/Vol]on 10-28-2023 MCHC (RBC) [Mass/Vol] 33.9 g/dL 29.9-35.[address] [facility] MCV Auto (RBC) [Entitic vol] on 10-28-2023 MCV (RBC) [Entitic vol] 92.8 fL 80.0-94.0 [facility] Monocytes Auto (Bld) [#/Vol] on 10-28-2023 Monocytes (Bld) [#/Vol] 0.3 10 3/uL 0.3-0.8 [facility] Monocytes/100 WBC Auto (Bld) on 10-28-2023 Monocytes/100 WBC (Bld) 6.9 % 1.7-12.0 [facility] Neutrophils Auto (Bld) [#/Vo l]on 10-28-2023 Neutrophils (Bld) [#/Vol] 2.9 10 3/uL 1.4-6.5 [facility] Neutrophils/100 WBC Auto (Bl d)on 10-28-2023 Neutrophils/100 WBC (Bld) 69.3 % 43.0-75.0 [facility] No Panel Informationon 10-27 C-Reactive Protein, Quantitative <0.50 mg/dL <=0.50 [facility] Eosinophils # (Auto) 0.1 10 3/uL 0.0-0.[address] [facility] [facility] Immature Granulocyte # (Auto) 0.02 10 3/uL 0.00-0.03 [facility] Protein Electrophoresis M-Talon Not Observed g/dL Not Observed [facility] Protein Electrophoresis Note Comment . [facility] Comment on above: Protein electrophore sis scan will follow via computer,mail, or sagger soak delivery. Platelet mean volume Auto (B ld) [Entitic vol]on 10-28-2023 Platelet mean volume (Bld) [Entitic vol] 9.0 fL 9.5-13.5 [facility] Platelets Auto (Bld) [#/Vol] on 10-28-2023 Platelets (Bld) [#/Vol] 126 10 3/uL 150-450 [facility] Protein [Mass/volume] in Ser um or Plasmaon 10-28-2023 Protein [Mass/Vol] 6.8 g/dL 6.0-8.5 [facility] RBC Auto (Bld) [#/Vol]on RBC (Bld) [#/Vol] 4.61 10 6/uL 4.70-6.10 [facility] Serum globulin measurement ( mass/volume)on 10-28-2023 Globulin (S) [Mass/Vol] 2.8 g/dL 2.2-3.9 [facility] Serum or plasma albumin/glob ulin mass ratioon 10-28-2023 Albumin/Globulin [Mass ratio] 1.5 {ratio} 0.7-1.7 [facility] Serum or plasma alpha 1 glob ulin measurement by electrophoresis (mass/volume)on 10-28-2023 Alpha 1 globulin Elph [Mass/Vol] 0.2 g/dL 0.0-0.4 [facility] Serum or plasma alpha 2 glob ulin measurement by electrophoresis (mass/volume)on 10-28-2023 Alpha 2 globulin Elph [Mass/Vol] 0.7 g/dL 0.4-1.0 [facility] Serum or plasma beta globuli n measurement by electrophoresis (mass/volume)on 10-28-2023 Beta globulin Elph [Mass/Vol] 1.1 g/dL 0.7-1.3 [facility] Serum or plasma gamma globul in measurement by electrophoresis (mass/volume)on 10-28-2023 Gamma globulin Elph [Mass/Vol] 0.8 g/dL 0.4-1.8 [facility] Serum or plasma immunoelectr ophoresis interpretationon 10-28-2023 Interpretation IEP [Interp] Comment . [facility] Comment on above: No monoclonality det ected. Albumin [Mass/volume] in Ser um or Plasmaon 10-10-2023 Albumin [Mass/Vol] 4.0 g/dL 2.9-4.4 [facility] Basophils Auto (Bld) [#/Vol] on 10-10-2023 Basophils (Bld) [#/Vol] 0.0 10 3/uL 0.0-0.1 [facility] Basophils/100 WBC Auto (Bld) on 10-10-2023 Basophils/100 WBC (Bld) 1.0 % 0.2-2.0 [facility] Eosinophils/100 WBC Auto (Bl d)on 10-10-2023 Eosinophils/100 WBC (Bld) 2.0 % 0.9-7.0 [facility] Erythrocyte distribution wid th Auto (RBC) [Ratio]on 10-10-2023 Erythrocyte distribution width (RBC) [Ratio] 13.2 % 11.0-15.0 [facility] Estimated glomerular filtrat ion rate (GFR) non- Americanon 10-10-2023 GFR/1.73 sq M.predicted among non-blacks MDRD (S/P/Bld) [Vol rate/Area] mL/min/{1.73_m2} >=60 [facility] Globulin Calc (S) [Mass/Vol] on 10-10-2023 Globulin (S) [Mass/Vol] 3.6 g/dL [facility] Hematocrit Auto (Bld) [Volum e fraction]on 10-10-2023 Hematocrit (Bld) [Volume fraction] 42.4 % 42.0-54.0 [facility] Hemoglobin [Mass/volume] in Bloodon 10-10-2023 Hemoglobin (Bld) [Mass/Vol] 14.2 g/dL 14.0-18.0 [facility] IgA [Mass/volume] in Serum o r Plasmaon 10-10-2023 IgA [Mass/Vol] 215 mg/dL 61-437 [facility] IgG [Mass/volume] in Serum o r Plasmaon 10-10-2023 IgG [Mass/Vol] 976 mg/dL 603-1613 [facility] IgM [Mass/volume] in Serum o r Plasmaon 10-10-2023 IgM [Mass/Vol] 31 mg/dL 20-172 [facility] Immunoglobulin light chains. kappa.free [Mass/volume] in Serumon 10-10-2023 Immunoglobulin light chains.kappa.free (S) [Mass/Vol] 23.8 mg/L 3.3-19.4 [facility] Immunoglobulin light chains. kappa.free/Immunoglobulin light chains.lambda.free [Pebbles 10-10-2023 Immunoglobulin light chains.kappa.free/Immunog lobulin light chains.lambda.free (S) [Mass ratio] 1.57 0.26-1.65 [facility] Comment on above: Performed at: [place] [id number] Director: You Barrow PhD, Phone: [phone] Immunoglobulin light chains. lambda.free [Mass/volume] in Serum or Plasmaon 10-10-2023 Immunoglobulin light chains.lambda.free [Mass/Vol] 15.2 mg/L 5.7-26.3 [facility] Laboratory - Chemistry and C hemistry - challengeon 10-10-2023 Albumin [Mass/Vol] 3.9 g/dL 3.4-5.0 [facility] ALP [Catalytic activity/Vol] 81 U/L 46-116 [facility] ALT [Catalytic activity/Vol] 38 U/L 16-63 [facility] AST [Catalytic activity/Vol] 17 U/L 15-37 [facility] Bilirubin [Mass/Vol] 0.6 mg/dL 0.2-1.0 [facility] Calcium [Mass/Vol] 9.1 mg/dL 8.5-10.1 [facility] Chloride [Moles/Vol] 109 mmol/L 98-107 [facility] CO2 [Moles/Vol] 22.8 mmol/L 21.0-32.0 [facility] Cobalamin (Vitamin B12) [Mass/Vol] 770.0 pg/mL 193.0-986.0 [facility] Creatinine [Mass/Vol] 1.00 mg/dL 0.70-1.30 [facility] Ferritin [Mass/Vol] 676.0 ng/mL 26.0-388.0 [facility] GFR/1.73 sq M.predicted MDRD (S/P/Bld) [Vol rate/Area] mL/min/{1.73_m2} >=60 [facility] Glucose [Mass/Vol] 115 mg/dL 74-106 [facility] Potassium [Moles/Vol] 4.2 mmol/L 3.5-5.1 [facility] Protein [Mass/Vol] 7.5 g/dL 6.4-8.2 [facility] Sodium [Moles/Vol] 145 mmol/L 136-145 [facility] TSH Qn 1.282 m[IU]/L 0.358-3.740 [facility] Urea nitrogen [Mass/Vol] 17.0 mg/dL 7.0-18.0 [facility] Urea nitrogen/Creatinine [Mass ratio] 17.0 mg/mg [facility] Laboratory - Hematology and Cell countson 10-10-2023 Immature granulocytes/100 WBC (Bld) 0.2 % 0.0-0.5 [facility] Leukocytes [#/volume] correc nohemy for nucleated erythrocytes in Blood by Automated counon 10-10-2023 WBC corrected for nucl RBC Auto (Bld) [#/Vol] 4.1 10 3/uL 4.0-11.0 [facility] Lymphocytes Auto (Bld) [#/Vo l]on 10-10-2023 Lymphocytes (Bld) [#/Vol] 1.0 10 3/uL 1.2-3.8 [facility] Lymphocytes/100 WBC Auto (Bl d)on 10-10-2023 Lymphocytes/100 WBC (Bld) 24.6 % 20.5-60.0 [facility] MCH Auto (RBC) [Entitic mass ]on 10-10-2023 MCH (RBC) [Entitic mass] 31.7 pg 25.9-34.0 [facility] MCHC Auto (RBC) [Mass/Vol]on 10-10-2023 MCHC (RBC) [Mass/Vol] 33.5 g/dL 29.9-35.2 [facility] MCV Auto (RBC) [Entitic vol] on 10-10-2023 MCV (RBC) [Entitic vol] 94.6 fL 80.0-94.0 [facility] Monocytes Auto (Bld) [#/Vol] on 10-10-2023 Monocytes (Bld) [#/Vol] 0.3 10 3/uL 0.3-0.8 [facility] Monocytes/100 WBC Auto (Bld) on 10-10-2023 Monocytes/100 WBC (Bld) 6.6 % 1.7-12.0 [facility] Neutrophils Auto (Bld) [#/Vo l]on 10-10-2023 Neutrophils (Bld) [#/Vol] 2.7 10 3/uL 1.4-6.5 [facility] Neutrophils/100 WBC Auto (Bl d)on 10-10-2023 Neutrophils/100 WBC (Bld) 65.6 % 43.0-75.0 [facility] No Panel Informationon 10-10 Eosinophils # (Auto) 0.1 10 3/uL 0.0-0.7 [facility] Immature Granulocyte # (Auto) 0.01 10 3/uL 0.00-0.03 [facility] Protein Electrophoresis M-Talon Not Observed g/dL Not Observed [facility] Protein Electrophoresis Note Comment . [facility] Comment on above: Protein electrophore sis scan will follow via computer,mail, or sagger soak delivery. Platelet mean volume Auto (B ld) [Entitic vol]on 10-10-2023 Platelet mean volume (Bld) [Entitic vol] 9.0 fL 9.5-13.5 [facility] Platelets Auto (Bld) [#/Vol] on 10-10-2023 Platelets (Bld) [#/Vol] 130 10 3/uL 150-450 [facility] Protein [Mass/volume] in Ser um or Plasmaon 10-10-2023 Protein [Mass/Vol] 6.7 g/dL 6.0-8.5 [facility] RBC Auto (Bld) [#/Vol]on RBC (Bld) [#/Vol] 4.48 10 6/uL 4.70-6.10 [facility] Serum globulin measurement ( mass/volume)on 10-10-2023 Globulin (S) [Mass/Vol] 2.7 g/dL 2.2-3.9 [facility] Serum or plasma albumin/glob ulin mass ratioon 10-10-2023 Albumin/Globulin [Mass ratio] 1.1 {ratio} [facility] Albumin/Globulin [Mass ratio] 1.5 {ratio} 0.7-1.7 [facility] Serum or plasma alpha 1 glob ulin measurement by electrophoresis (mass/volume)on 10-10-2023 Alpha 1 globulin Elph [Mass/Vol] 0.2 g/dL 0.0-0.4 [facility] Serum or plasma alpha 2 glob ulin measurement by electrophoresis (mass/volume)on 10-10-2023 Alpha 2 globulin Elph [Mass/Vol] 0.7 g/dL 0.4-1.0 [facility] Serum or plasma anion gap de terminationon 10-10-2023 Anion gap [Moles/Vol] 17.4 mmol/L [facility] Serum or plasma beta globuli n measurement by electrophoresis (mass/volume)on 10-10-2023 Beta globulin Elph [Mass/Vol] 1.0 g/dL 0.7-1.3 [facility] Serum or plasma gamma globul in measurement by electrophoresis (mass/volume)on 10-10-2023 Gamma globulin Elph [Mass/Vol] 0.8 g/dL 0.4-1.8 [facility] Serum or plasma immunoelectr ophoresis interpretationon 10-10-2023 Interpretation IEP [Interp] Comment . [facility] Comment on above: No monoclonality det ected. GLYCOHEMOGLOBIN A1Con 2021 ADA RECOMMENDATION SEE BELOW Normal [facility] Comment on above: Result Comment: ADA RECOMMENDED LIMIT 4.0 - 6.0 ADA THERAPEUTIC TARGET < 7.0 ACTION SUGGESTED > 7.0 Performed By: #### D ATA1C #### [facility] [address] [place] [address] Dr. Lucia Dee Glucose [Mass/Vol] 111 mg/dL Normal [facility] Comment on above: Performed By: #### D ATA1C #### [facility] [address] [place] [address] [address] Lucia Dee HbA1c (Bld) [Mass fraction] 5.5 % Normal 4.5-6.2 [facility] Comment on above: Performed By: #### D ATA1C #### [facility] [address] [place] [address] Dr. Lucia Dee CBC AUTO DIFFon 02-08-2022 BASO # 0.0 103/ul Normal 0.0-0.1 [facility] Comment on above: Performed By: #### C BC #### [facility] [address] [place] [address] [address] Lucia Dee Basophils/100 WBC (Bld) 0.9 % Normal 0.2-2.0 [facility] Comment on above: Performed By: #### C BC #### [facility] [address] [place] [address] Dr. Lucia Dee EO # 0.1 103/ul Normal 0.0-0.7 [facility] Comment on above: Performed By: #### C BC #### [facility] [address] [place] [address] Dr. Lucia Dee Eosinophils/100 WBC (Bld) 2.2 % Normal 0.9-7.0 [facility] Comment on above: Performed By: #### C BC #### [facility] [address] [place] [address] Dr. Lucia Dee Erythrocyte distribution width (RBC) [Ratio] 13.2 % Normal 11.0-15.0 [facility] Comment on above: Performed By: #### C BC #### [facility] [address] [place] [address] Dr. Lucia Dee Hematocrit (Bld) [Volume fraction] 41.8 % Critically low 42.0-54.0 [facility] Comment on above: Performed By: #### C BC #### [facility] [address] [place] [address] Dr. Lucia Dee Hemoglobin (Bld) [Mass/Vol] 14.2 g/dL Normal 14.0-18.0 [facility] Comment on above: Performed By: #### C BC #### [facility] [address] [place] [address] Dr. Lucia Dee IG # 0.02 10e3/ul Normal 0.00-0.03 [facility] Comment on above: Performed By: #### C BC #### [facility] [address] [place] [address] Dr. Lucia Dee IG % 0.4 % Normal 0.0-0.5 [facility] Comment on above: Performed By: #### C BC #### [facility] [address] [place] [address] Dr. Lucia Dee LYMPH # 1.0 103/ul Critically low 1.2-3.8 [facility] Comment on above: Performed By: #### C BC #### [facility] [address] [place] [address] Dr. Lucia Dee Lymphocytes/100 WBC (Bld) 22.3 % Normal 20.5-60.0 [facility] Comment on above: Performed By: #### C BC #### [facility] [address] [place] [address] Dr. Lucia Dee MANUAL DIFF REQ NO Normal [facility] Comment on above: Performed By: #### C BC #### [facility] [address] [place] [address] Dr. Lucia Dee MCH (RBC) [Entitic mass] 31.8 pg Normal 25.9-34.0 [facility] Comment on above: Performed By: #### C BC #### [facility] [address] [place] [address] [address] Lucia Dee MCHC (RBC) [Mass/Vol] 34.0 g/dL Normal 29.9-35.2 [facility] Comment on above: Performed By: #### C BC #### [facility] [address] [place] [address] [address] Lucia Dee MCV (RBC) [Entitic vol] 93.5 fL Normal 80.0-94.0 [facility] Comment on above: Performed By: #### C BC #### [facility] [address] [place] [address] [address] Lucia Dee MONO # 0.3 103/ul Normal 0.3-0.8 [facility] Comment on above: Performed By: #### C BC #### [facility] [address] [place] [address] Dr. Lucia Dee Monocytes/100 WBC (Bld) 7.2 % Normal 1.7-12.0 [facility] Comment on above: Performed By: #### C BC #### [facility] [address] [place] [address] Dr. Lucia Dee NEUT # 3.1 103/ul Normal 1.4-6.5 [facility] Comment on above: Performed By: #### C BC #### [facility] [address] [place] [address] Dr. Lucia Dee Neutrophils/100 WBC (Bld) 67.0 % Normal 43.0-75.0 [facility] Comment on above: Performed By: #### C BC #### [facility] [address] [place] [address] Dr. Lucia Dee Platelet mean volume (Bld) [Entitic vol] 8.7 fL Critically low 9.5-13.5 [facility] Comment on above: Performed By: #### C BC #### [facility] [address] [place] [address] Dr. Lucia Dee PLT 121 103/ul Critically low 150-450 [facility] Comment on above: Performed By: #### C BC #### [facility] [address] [place] [address] [address] Lucia Dee RBC 4.47 106/ul Critically low 4.70-6.10 [facility] Comment on above: Performed By: #### C BC #### [facility] [address] [place] [address] [address] Lucia Dee WBC 4.6 103/ul Normal 4.0-11.0 [facility] Comment on above: Performed By: #### C BC #### [facility] [address] [place] [address] Dr. Lucia Dee PROF CHEM 8 (BAS METB)on Anion gap [Moles/Vol] 13.4 mmol/L Normal [facility] Comment on above: Performed By: #### B MP #### [facility] [address] [place] [address] Dr. Lucia Dee Calcium [Mass/Vol] 9.1 mg/dL Normal 8.5-10.1 [facility] Comment on above: Performed By: #### B MP #### [facility] [address] [place] [address] Dr. Lucia Dee Chloride [Moles/Vol] 107 mmol/L Normal 98-107 [facility] Comment on above: Performed By: #### B MP #### [facility] [address] [place] [address] Dr. Lucia Dee CO2 [Moles/Vol] 25.5 mmol/L Normal 21.0-32.0 [facility] Comment on above: Performed By: #### B MP #### [facility] [address] [place] [address] Dr. Lucia Dee Creatinine [Mass/Vol] 1.13 mg/dL Normal 0.70-1.30 [facility] Comment on above: Performed By: #### B MP #### [facility] [address] [place] [address] Dr. Lucia Dee EGFR-AF BELGIAN >60 Normal >=60 [facility] Comment on above: Performed By: #### B MP #### [facility] [address] [place] [address] [address] Lucia Dee EGFR-NON AF BELGIAN >60 Normal >=60 [facility] Comment on above: Performed By: #### B MP #### [facility] [address] [place] [address] [address] Lucia Dee Glucose [Mass/Vol] 122 mg/dL Critically high 74-106 [facility] Comment on above: Performed By: #### B MP #### [facility] [address] [address] [address] Lucia Dee Potassium [Moles/Vol] 3.9 mmol/L Normal 3.5-5.1 [facility] Comment on above: Performed By: #### B MP #### [facility] [address] [place] [address] Dr. Lucia Dee Sodium [Moles/Vol] 142 mmol/L Normal 136-145 [facility] Comment on above: Performed By: #### B MP #### [facility] [address] [place] [address] Dr. Lucia Dee Urea nitrogen [Mass/Vol] 15.0 mg/dL Normal 7.0-18.0 [facility] Comment on above: Performed By: #### B MP #### [facility] [address] [place] [address] Dr. Lucia Dee Urea nitrogen/Creatinine [Mass ratio] 13.3 mg/mg Normal [facility] Comment on above: Performed By: #### B MP #### [facility] [address] [place] [address] Dr. Lucia Dee CBC AUTO DIFFon 05-17-2021 BASO # 0.0 103/ul Normal 0.0-0.1 [facility] Comment on above: Performed By: #### C BC #### [facility] [address] [place] [address] Dr. Lucia Dee Basophils/100 WBC (Bld) 0.9 % Normal 0.2-2.0 [facility] Comment on above: Performed By: #### C BC #### [facility] [address] [place] [address] Dr. Lucia Dee EO # 0.1 103/ul Normal 0.0-0.7 [facility] Comment on above: Performed By: #### C BC #### [facility] [address] [place] [address] Dr. Lucia Dee Eosinophils/100 WBC (Bld) 2.6 % Normal 0.9-7.0 [facility] Comment on above: Performed By: #### C BC #### [facility] [address] [place] [address] Dr. Lucia Dee Erythrocyte distribution width (RBC) [Ratio] 13.2 % Normal 11.0-15.0 [facility] Comment on above: Performed By: #### C BC #### [facility] [address] [place] [address] Dr. Lucia Dee Hematocrit (Bld) [Volume fraction] 44.7 % Normal 42.0-54.0 [facility] Comment on above: Performed By: #### C BC #### [facility] [address] [place] [address] Dr. Lucia Dee Hemoglobin (Bld) [Mass/Vol] 14.9 g/dL Normal 14.0-18.0 [facility] Comment on above: Performed By: #### C BC #### [facility] [address] [place] [address] Dr. Lucia Dee IG # 0.02 10e3/ul Normal 0.00-0.03 [facility] Comment on above: Performed By: #### C BC #### [facility] [address] [place] [address] Dr. Lucia Dee IG % 0.5 % Normal 0.0-0.5 [facility] Comment on above: Performed By: #### C BC #### [facility] [address] [place] [address] Dr. Lucia Dee LYMPH # 1.1 103/ul Critically low 1.2-3.8 [facility] Comment on above: Performed By: #### C BC #### [facility] [address] [place] [address] Dr. Lucia Dee Lymphocytes/100 WBC (Bld) 26.4 % Normal 20.5-60.0 [facility] Comment on above: Performed By: #### C BC #### [facility] [facility] [address] [place] [address] Dr. Lucia Dee MANUAL DIFF REQ NO Normal [facility] Comment on above: Performed By: #### C BC #### [facility] [address] [place] [address] Dr. Lucia Dee MCH (RBC) [Entitic mass] 31.3 pg Normal 25.9-34.0 [facility] Comment on above: Performed By: #### C BC #### [facility] [address] [place] [address] Dr. Lucia Dee MCHC (RBC) [Mass/Vol] 33.3 g/dL Normal 29.9-35.2 [facility] Comment on above: Performed By: #### C BC #### [facility] [address] [place] [address] Dr. Lucia Dee MCV (RBC) [Entitic vol] 93.9 fL Normal 80.0-94.0 [facility] Comment on above: Performed By: #### C BC #### [facility] [address] [place] [address] Dr. Lucia Dee MONO # 0.3 103/ul Normal 0.3-0.8 [facility] Comment on above: Performed By: #### C BC #### [facility] [address] [place] [address] Dr. Lucia Dee Monocytes/100 WBC (Bld) 7.3 % Normal 1.7-12.0 [facility] Comment on above: Performed By: #### C BC #### [facility] [address] [place] [address] Dr. Lucia Dee NEUT # 2.6 103/ul Normal 1.4-6.5 [facility] Comment on above: Performed By: #### C BC #### [facility] [address] [place] [address] Dr. Lucia Dee Neutrophils/100 WBC (Bld) 62.3 % Normal 43.0-75.0 [facility] Comment on above: Performed By: #### C BC #### [facility] [address] [place] [address] Dr. Lucia Dee Platelet mean volume (Bld) [Entitic vol] 8.9 fL Critically low 9.5-13.5 [facility] Comment on above: Performed By: #### C BC #### [facility] [address] [place] [address] Dr. Lucia Dee PLT 142 103/ul Critically low 150-450 [facility] Comment on above: Performed By: #### C BC #### [facility] [address] [place] [address] Dr. Lucia Dee RBC 4.76 106/ul Normal 4.70-6.10 [facility] Comment on above: Performed By: #### C BC #### [facility] [address] [place] [address] Dr. Lucia Dee WBC 4.2 103/ul Normal 4.0-11.0 [facility] Comment on above: Performed By: #### C BC #### [facility] [address] [place] [address] Dr. Lucia Dee FERRITINon 05-17-2021 Ferritin [Mass/Vol] 809.0 ng/mL Critically high 17.9-464.0 [facility] Comment on above: Performed By: #### F ERR, B12FOL, FETIBC #### [facility] [address] [place] [address] Dr. Lucia Dee IRON AND TIBCon 05-17-2021 % SATURATION 38.0 % Normal [facility] Comment on above: Performed By: #### F ERR, B12FOL, FETIBC #### [facility] [address] [place] [address] Dr. Lucia Dee Iron [Mass/Vol] 119.0 ug/dL Normal 49.0-181.0 [facility] Comment on above: Performed By: #### F ERR, B12FOL, FETIBC #### [facility] [address] [place], [place] [address] Dr. Lucia Dee TIBC DIRECT 313.0 ug/dL Normal 261.0-497.0 [facility] [place] Comment on above: Performed By: #### F ERR, B12FOL, FETIBC #### [facility] [address] [place], [place] [address] Dr. Lucia Dee VIT B12 AND FOLATEon 021 Cobalamin (Vitamin B12) [Mass/Vol] 674.0 pg/mL Normal 239.0-931.0 [facility] Comment on above: Performed By: #### F ERR, B12FOL, FETIBC #### [facility] [address] [place], [place] [address] Dr. Lucia Dee FOLATE 7.10 ng/mL Normal >=2.76 [facility] Comment on above: Performed By: #### F ERR, B12FOL, FETIBC #### [facility] [address] [place], [place] [address] Dr. Lucia Dee Vital Signs Date Time Vital Sign Value Performing Clinician Facility 02-20-2024 09:57-0400 Body height 185.[address] [facility] 02-20-2024 09:57-0400 Body mass index (BMI) [Ratio] 27 kg/m2 [facility] 02-20-2024 09:57-0400 Body weight 93.[address] [facility] 02-20-2024 09:57-0400 Diastolic blood pressure 72 mm[Hg] [facility] 02-20-2024 09:57-0400 Heart rate 67 /min [facility] 02-20-2024 09:57-0400 Respiratory rate 12 /min [facility] 02-20-2024 09:57-0400 Systolic blood pressure 120 mm[Hg] [facility] 10-30-2023 15:30-0500 Body height 185.42 cm DO Nokori Work Phone: [facility] 10-30-2023 15:30-0500 Body mass index (BMI) [Ratio] 29.4 kg/m2 DO Nokori Work Phone: [facility] 10-30-2023 15:30-0500 Body weight 101.15 kg DO Han Ball Work Phone: [facility] 10-30-2023 15:30-0500 Diastolic blood pressure 80 mm[Hg] DO Han Ball Work Phone: [facility] 10-30-2023 15:30-0500 Heart rate 68 /min DO Han Ball Work Phone: [facility] 10-30-2023 15:30-0500 Respiratory rate 12 /min DO Han Ball Work Phone: [facility] 10-30-2023 15:30-0500 Systolic blood pressure 132 mm[Hg] DO Han Ball Work Phone: [facility] 02-14-2023 10:00-0400 Body height 185.42 cm Han Ball Other [facility] [employer] Other 02-14-2023 10:00-0400 Body mass index (BMI) [Ratio] 28.57 kg/m2 Han Ball Other [facility] [employer] Other 02-14-2023 10:00-0400 Body weight 98.25 kg Han Ball Other [employer] Other 02-14-2023 10:00-0400 Diastolic blood pressure 76 mm[Hg] Han Ball Other [employer] Other 02-14-2023 10:00-0400 Respiratory rate 12 /min Han Ball Other [employer] Other 02-14-2023 10:00-0400 Systolic blood pressure 118 mm[Hg] Han Ball Other [employer] Other Encounters Encounter Date Encounter Type Care Provider Facility Start: 02-20-2024 End: 02-20-2024 ambulatory [facility] Work Phone: Start: 02-20-2024 End: 02-20-2024 Patient encounter procedure [facility] [employer] Work Phone: Start: 02-13-2024 Non-patient / Non-visit [facility] Work Phone: Start: 01-30-2024 Non-patient / Non-visit [facility] Work Phone: Start: 01-17-2024 Non-patient / Non-visit [facility] Work Phone: Start: 01-07-2024 Non-patient / Non-visit [facility] Work Phone: Start: 01-03-2024 Non-patient / Non-visit [facility] Work Phone: Start: 12-20-2023 Non-patient / Non-visit [facility] Work Phone: Start: 12-10-2023 Non-patient / Non-visit [facility] Work Phone: Start: 12-05-2023 Non-patient / Non-visit [facility] Work Phone: Start: 11-12-2023 End: 11-12-2023 ambulatory Peggy Evelyn Facility:[facility] Start: 11-12-2023 End: 11-12-2023 ambulatory DO Han Diaz Work Phone: [facility] Work Phone: Start: 11-12-2023 End: 11-12-2023 Departed Referred DO Han Diaz Work Phone: [facility] Start: 11-12-2023 Non-patient / Non-visit DO Brant Diaz Work Phone: [facility] Work Phone: Start: 10-30-2023 End: 10-30-2023 Patient encounter procedure DO Han Ball Work Phone: [facility] Work Phone: Start: 10-28-2023 Non-patient / Non-visit DO Brant Diaz Work Phone: [facility] Work Phone: Start: 10-10-2023 Non-patient / Non-visit DO Brant Diaz Work Phone: [facility] Work Phone: Start: 09-05-2023 End: 09-05-2023 ambulatory Han Diaz Other [employer] Other Start: 09-05-2023 Telephone encounter Han [facility] Start: 06-12-2023 End: 06-12-2023 ambulatory Han Ball Other [employer] Other Start: 06-12-2023 Telephone encounter Han Ball [facility] Start: 05-29-2023 End: 05-29-2023 ambulatory Han Ball Other [employer] Other Start: 05-29-2023 Telephone encounter Han Ball [facility] Start: 02-22-2023 End: 02-22-2023 ambulatory Han Ball Other [employer] Other Start: 02-22-2023 Telephone encounter Han Ball [facility] Start: 02-15-2023 End: 02-15-2023 ambulatory Han Ball Other [employer] Other Start: 02-15-2023 Telephone encounter Han Ball [facility] Start: 02-14-2023 End: 02-14-2023 ambulatory Han Ball Other [employer] Other Start: 02-14-2023 Patient encounter procedure [facility] Start: 02-28-2022 End: 03-01-[address] HAN DIAZ Facility:[facility] Start: 02-08-2022 Adult health examination Han Diaz Other [employer] Other Start: 02-08-2022 End: 02-09-[address] HAN DIAZ Facility:[facility] Start: 05-17-2021 End: 05-18-[address] HAN DIAZ Facility:[facility] Procedures Date Procedure Procedure Detail Performing Clinician Start: 02-08-[address] PEREZ [place] Comment on above: Performed By: #### P [facility] #### [facility] [address] [place] [address] Dr. Lucia Dee Start: 12-23-2018 Screening for malign ant neoplasm of colon Han Diaz Other Depression screening [facility] [facility] Other Hyperlipidemia screening Brant Diaz Other Screening for malign ant neoplasm of prostate Han Diaz Other Viral screening [facility] Other Plan of Treatment Date Care Activity Detail Author Start: 10-30-2023 Patient referral [facility] Work Phone: Barium swallow [facility] Comprehensive metabo lic 2000 panel - Serum or Plasma [facility] Patient referral [facility] Work Phone: [facility] Immunizations Immunization Date Immunization Notes Care Provider [facility] 06-24-2018 diphtheria, tetanus toxoids and acellular pertussis vaccine, unspecified formulation Han Diaz Other [facility] Payers Date Payer Category Payer Medicare [id number] 1961 Self-pay 1955 Unknown [id number] 1955 Unknown [id number] Unknown [id number] Unknown [id number] Social History Date Type Detail Facility Sex Assigned At [employer] Other Start: 1955 Sex Assigned At Male F [facility] Evaluation note 09-05-2023 Note Date & Type Note Facility 09-05-2023 Evaluation note Encounter Date Diagnosis Assessment Notes Aug, CHELE (generalized anxiety disorder) (ICD-10 - F41.1) [facility] Other Evaluation note 05-29-2023 Note Date & Type Note Facility 05-29-2023 Evaluation note Encounter Date Diagnosis Assessment Notes May, Thrombocytopenia (ICD-10 - D69.6) [facility] Other Evaluation note 02-15-2023 Note Date & Type Note Facility 02-15-2023 Evaluation note Encounter Date Diagnosis Assessment Notes Jan, CHELE (generalized anxiety disorder) (ICD-10 - F41.1) [facility] Other Evaluation note 02-14-2023 Note Date & [...] High risk medication use (ICD-10 - Z79.899) [facility] Other Evaluation note Note Date & Type Note Facility Evaluation note No Information [address] Other Evaluation note Note Date & Type Note Facility Evaluation note Diagnosis Onset Date Dysesthesia acute Dysphagia acute Elevated ferritin acute CHELE (generalized anxiety disorder) acute IFG (impaired fasting glucose) acute Thrombocytopenia acute [facility] Work Phone: Evaluation note Note Date & Type Note Facility Evaluation note Diagnosis Onset Date Benign prostatic hyperplasia with lower urinary tract symptoms acute CHELE (generalized anxiety disorder) acute Hemochromatosis acute IFG (impaired fasting glucose) acute Peripheral polyneuropathy ac jolly Screening PSA (prostate specific antigen) acute Medicare annual wellness visit, subsequent noneactive [facility] Work Phone: History general Narrative - Reported Note Date & Type Note Facility History general Narrative - Reported Type Medical History CHELE (generalized anxiety disorde r) Medical History Benign prostatic hyp erplasia with lower urinary tract symptoms Medical History Cigarette nicotine dependence in remission Medical History Lumbar spondylosis Medical History Thrombocytopenia [facility] Other History general Narrative - Reported Note [...] no changes required, Problem Status : Resolved, [facility] Other Summary Purpose Family History Relationship Condition [...] DATE CREATED AUTHOR 'S ORGANIZ ATION 11/14/2023 [facility] REASON FOR VISIT (unrecogniz ed section and content) WELLNESSMedicationLab Result srepeat labsLab resultsRefpeoples hospital Care Teams (unrecognized sec tion and [...] Provider Active Start: February 13, 2024 Peggy Rivas MD Attending Provider Active St art: February [...] BE BASED ON THE PRIMARY CLINICAL RECORDS. [facility] [employer] [facility]. provides no warranty or guarantee of the accuracy or completeness of information in this document.
[2024-04-14 16:03] LABS: Basophils Percent Auto 0.6 % (0.2-2.0); Eosinophils Absolute Auto 0.1 10^3/uL (0.0-0.7); Eosinophils Percent Auto 1.4 % (0.9-7.0); Hematocrit 41.4 % (42.0-54.0); Hemoglobin 13.9 g/dL (14.0-18.0); Immature Granulocytes Abs Auto 0.01 10^3/uL (0.00-0.03); Immature Granulocytes Pct Auto 0.3 % (0.0-0.5); Lymphocytes Absolute Auto 0.8 10^3/uL (1.2-3.8); Lymphocytes Percent Auto 22.8 % (20.5-60.0); Mean Corpuscular HGB Conc 33.6 g/dL (29.9-35.2); Mean Corpuscular Hemoglobin 30.4 pg (25.9-34.0); Mean Corpuscular Volume 90.6 fL (80.0-94.0); Monocytes Absolute Auto 0.2 10^3/uL (0.3-0.8); Monocytes Percent Auto 6.7 % (1.7-12.0); Neutrophils Absolute Auto 2.5 10^3/uL (1.4-6.5); Neutrophils Percent Auto 68.2 % (43.0-75.0); Platelet Count 123 10^3/uL (150-450); Red Blood Count 4.57 10^6/uL (4.70-6.10); Red Cell Distribution Width 13.1 % (11.0-15.0); White Blood Count 3.6 10^3/uL (4.0-11.0)
[2024-04-14 16:20] LABS: Anion Gap 12.1; BUN Creatinine Ratio 15.4; Calcium 9.1 mg/dL (8.5-10.1); Carbon Dioxide 25.9 mmol/L (21.0-32.0); Chloride 105 mmol/L (98-107); Estimated GFR (African America >60 (>=60); Estimated GFR (Non-African Ame >60 (>=60); Glucose 106 mg/dL (74-106); Sodium 139 mmol/L (136-145)
[2024-04-14 16:39] LABS: Percent Iron Saturation 37.7 %
== END 2024-04-14 15:46 | disposition home or self-care (01) ==
LOC: LAB 15:48
PROVIDERS: PCP Internal Medicine; Visit Provider Internal Medicine Hematology & Oncology
DX: R79.89 Other specified abnormal findings of blood chemistry (principal); D69.6 Thrombocytopenia, unspecified; E83.119 Hemochromatosis, unspecified; D72.819 Decreased white blood cell count, unspecified; D64.9 Anemia, unspecified
CPT/HCPCS: 36415; 80048; 82728; 83540; 83550; 85025

== ENCOUNTER 2024-04-21 07:24 | Outpatient (RCR) | payer MEDICARE, SELFPAY | END 2024-04-25 23:59 | disposition home or self-care (01) | LOC: HEMC 07:24 | PROVIDERS: PCP Internal Medicine; Visit Provider Internal Medicine Hematology & Oncology | DX: D69.6 Thrombocytopenia, unspecified (principal); E83.119 Hemochromatosis, unspecified; D72.819 Decreased white blood cell count, unspecified; R79.89 Other specified abnormal findings of blood chemistry; D64.9 Anemia, unspecified | CPT/HCPCS: G0463 ==

== ENCOUNTER 2024-07-07 14:12 | Outpatient (OUT) | payer MEDICARE, SELFPAY ==
[2024-07-07 14:30] LABS: Basophils Percent Auto 0.5 % (0.2-2.0); Eosinophils Absolute Auto 0.1 10^3/uL (0.0-0.7); Eosinophils Percent Auto 1.9 % (0.9-7.0); Hemoglobin 13.7 g/dL (14.0-18.0); Immature Granulocytes Abs Auto 0.03 10^3/uL (0.00-0.03); Immature Granulocytes Pct Auto 0.8 % (0.0-0.5); Lymphocytes Absolute Auto 0.9 10^3/uL (1.2-3.8); Lymphocytes Percent Auto 23.7 % (20.5-60.0); Mean Corpuscular HGB Conc 33.4 g/dL (29.9-35.2); Mean Corpuscular Hemoglobin 31.5 pg (25.9-34.0); Mean Corpuscular Volume 94.3 fL (80.0-94.0); Mean Platelet Volume 8.8 fL (9.5-13.5); Monocytes Absolute Auto 0.3 10^3/uL (0.3-0.8); Monocytes Percent Auto 8.2 % (1.7-12.0); Neutrophils Absolute Auto 2.4 10^3/uL (1.4-6.5); Neutrophils Percent Auto 64.9 % (43.0-75.0); Platelet Count 117 10^3/uL (150-450); Red Blood Count 4.35 10^6/uL (4.70-6.10); Red Cell Distribution Width 13.7 % (11.0-15.0); White Blood Count 3.7 10^3/uL (4.0-11.0)
[2024-07-07 15:00] LABS: Percent Iron Saturation 31.8 %
[2024-07-07 15:16] LABS: Alanine Aminotransferase 29 U/L (16-63); Albumin Globulin Ratio 1.1; Albumin Level 3.9 g/dL (3.4-5.0); Alkaline Phosphatase 83 U/L (46-116); Anion Gap 14.3; Aspartate Amino Transferase 17 U/L (15-37); BUN Creatinine Ratio 15.5; Bilirubin Total 0.9 mg/dL (0.2-1.0); Calcium 9.4 mg/dL (8.5-10.1); Chloride 106 mmol/L (98-107); Estimated GFR (African America >60 (>=60 mL/min/1.73m^2); Estimated GFR (Non-African Ame >60 (>=60 mL/min/1.73m^2); Globulin 3.4 g/dL; Glucose 105 mg/dL (74-106); Potassium 4.3 mmol/L (3.5-5.1); Sodium 141 mmol/L (136-145); Total Protein 7.3 g/dL (6.4-8.2)
== END 2024-07-07 14:13 | disposition home or self-care (01) ==
LOC: LAB 14:15
PROVIDERS: PCP Internal Medicine; Visit Provider Internal Medicine Hematology & Oncology
DX: R79.89 Other specified abnormal findings of blood chemistry (principal); D69.6 Thrombocytopenia, unspecified; E83.119 Hemochromatosis, unspecified; D72.819 Decreased white blood cell count, unspecified; D64.9 Anemia, unspecified
CPT/HCPCS: 36415; 80053; 82728; 83540; 83550; 85025

== ENCOUNTER 2024-07-14 07:44 | Outpatient (RCR) | payer MEDICARE, SELFPAY | END 2024-07-16 09:27 | disposition home or self-care (01) | LOC: HEMC 07:44 | PROVIDERS: PCP Internal Medicine; Visit Provider Internal Medicine Hematology & Oncology | DX: E83.119 Hemochromatosis, unspecified (principal); R79.89 Other specified abnormal findings of blood chemistry; D69.6 Thrombocytopenia, unspecified; D72.819 Decreased white blood cell count, unspecified; D64.9 Anemia, unspecified | CPT/HCPCS: G0463 ==

== ENCOUNTER 2024-10-20 14:15 | Outpatient (OUT) | payer MEDICARE, SELFPAY ==
[2024-10-20 14:37] LABS: Basophils Percent Auto 0.5 % (0.2-2.0); Eosinophils Absolute Auto 0.1 10^3/uL (0.0-0.7); Eosinophils Percent Auto 1.9 % (0.9-7.0); Hematocrit 42.6 % (42.0-54.0); Hemoglobin 14.6 g/dL (14.0-18.0); Immature Granulocytes Abs Auto 0.03 10^3/uL (0.00-0.03); Immature Granulocytes Pct Auto 0.8 % (0.0-0.5); Lymphocytes Absolute Auto 0.9 10^3/uL (1.2-3.8); Lymphocytes Percent Auto 24.2 % (20.5-60.0); Mean Corpuscular HGB Conc 34.3 g/dL (29.9-35.2); Mean Corpuscular Hemoglobin 31.7 pg (25.9-34.0); Mean Corpuscular Volume 92.6 fL (80.0-94.0); Mean Platelet Volume 8.8 fL (9.5-13.5); Monocytes Absolute Auto 0.3 10^3/uL (0.3-0.8); Monocytes Percent Auto 7.4 % (1.7-12.0); Neutrophils Absolute Auto 2.4 10^3/uL (1.4-6.5); Neutrophils Percent Auto 65.2 % (43.0-75.0); Platelet Count 126 10^3/uL (150-450); Red Cell Distribution Width 13.2 % (11.0-15.0); White Blood Count 3.6 10^3/uL (4.0-11.0)
[2024-10-20 14:52] LABS: Alanine Aminotransferase 34 U/L (16-63); Albumin Globulin Ratio 1.2; Alkaline Phosphatase 81 U/L (46-116); Anion Gap 15.4; Aspartate Amino Transferase 18 U/L (15-37); BUN Creatinine Ratio 13.4; Bilirubin Total 0.9 mg/dL (0.2-1.0); Calcium 9.2 mg/dL (8.5-10.1); Carbon Dioxide 24.8 mmol/L (21.0-32.0); Chloride 103 mmol/L (98-107); Estimated GFR (African America >60 (>=60 mL/min/1.73m^2); Estimated GFR (Non-African Ame >60 (>=60 mL/min/1.73m^2); Globulin 3.3 g/dL; Glucose 109 mg/dL (74-106); Potassium 4.2 mmol/L (3.5-5.1); Sodium 139 mmol/L (136-145); Total Protein 7.3 g/dL (6.4-8.2)
[2024-10-20 15:43] LABS: Percent Iron Saturation 35.4 %
== END 2024-10-20 14:16 | disposition home or self-care (01) ==
LOC: LAB 14:16
PROVIDERS: PCP Internal Medicine; Visit Provider Internal Medicine Hematology & Oncology
DX: R79.89 Other specified abnormal findings of blood chemistry (principal); D69.6 Thrombocytopenia, unspecified; E83.119 Hemochromatosis, unspecified; D72.819 Decreased white blood cell count, unspecified; D64.9 Anemia, unspecified
CPT/HCPCS: 36415; 80053; 82728; 83540; 83550; 85025

== ENCOUNTER 2024-10-27 07:46 | Outpatient (RCR) | payer MEDICARE, SELFPAY ==
--- OUTSIDE RECORDS SUMMARY | 2024-10-27 07:49 | XMS_ITS | CCD ---
Author Organization [facility] Care Team Providers Care Metal Miner Name Role Phone JOE, DR SHORT Primary [...] Care Provider MD Peggy Rivas Attending Provider Allergies Allergy Classification Reported Allergen(s) Allergy Type Date of Onset Reaction(s) Facility (6 sources) Penicillin Drug Allergy Unknown [employer] Other (3 sources) patient allergy list reviewed by nurse or physicia Propensity to adverse reactions 12-24-19 Comment:Done [employer] Other (3 sources) Substance with penicillin structure and antibacterial mechanism of action (substance) Drug allergy Unknown [employer] Other (1 source) Penicillins Drug allergy (disorder) 10-30-19 24 [facility] [place] Repository Medications Current Medications Medication Drug Class(es) [...] 05-27-2018 Chronic Other aftercare (5 sources) Other senior living (current) drug therapy; Translations: [OTH PENITENTIARY CURRENT DRUG THERAPY] Onset: 02-08-2022 Episodic Other aftercare (3 sources) Long-term current use of drug therapy; Translations: [Other senior living (current) drug therapy] Episodic Other ear and [...] [#/Vol] 0.0 10 3/uL 0.0-0.1 [facility] [place] Basophils/100 WBC Auto (Bld) on 02-13-2024 Basophils/100 WBC (Bld) 0.5 % 0.2-2.0 [facility] Eosinophils/100 WBC Auto (Bl d)on 02-13-2024 Eosinophils/100 WBC (Bld) 1.4 % 0.9-7.0 [facility] [place] Erythrocyte distribution wid th Auto (RBC) [Ratio]on 02-13-2024 Erythrocyte distribution width (RBC) [Ratio] 12.8 % 11.0-15.0 [facility] [place] Hematocrit Auto (Bld) [Volum e fraction]on 02-13-2024 Hematocrit (Bld) [Volume fraction] 39.3 % Low 42.0-54.0 [facility] [place] Hemoglobin [Mass/volume] in Bloodon 02-13-2024 Hemoglobin (Bld) [Mass/Vol] 13.0 g/dL Low 14.0-18.0 [facility] [place] Iron binding capacity [Mass/ volume] in Serum or Plasmaon 02-13-2024 Iron binding capacity [Mass/Vol] 346.0 ug/dL 250.0-450.0 [facility] [place] Iron saturation [Mass Fracti on] in Serum or Plasmaon 02-13-2024 Iron saturation [Mass fraction] 19.1 % [facility] [place] Laboratory - Chemistry and C hemistry - challengeon 02-13-2024 Ferritin [Mass/Vol] 98.0 ng/mL 26.0-388.0 [facility] Iron [Mass/Vol] 66.0 ug/dL 65.0-175.0 [facility] [place] Laboratory - Hematology and Cell countson 02-13-2024 Immature granulocytes/100 WBC (Bld) 0.3 % 0.0-0.5 [facility] [place] Leukocytes [#/volume] correc nohemy for nucleated erythrocytes in Blood by Automated counon 02-13-2024 WBC corrected for nucl RBC Auto (Bld) [#/Vol] 3.7 10 3/uL Low 4.0-11.0 [facility] [place] Lymphocytes Auto (Bld) [#/Vo l]on 02-13-2024 Lymphocytes (Bld) [#/Vol] 0.8 10 3/uL Low 1.2-3.8 [facility] [place] Lymphocytes/100 WBC Auto (Bl d)on 02-13-2024 Lymphocytes/100 WBC (Bld) 21.4 % 20.5-60.0 [facility] [place] MCH Auto (RBC) [Entitic mass ]on 02-13-2024 MCH (RBC) [Entitic mass] 31.0 pg 25.9-34.0 [facility] [place] MCHC Auto (RBC) [Mass/Vol]on 02-13-2024 MCHC (RBC) [Mass/Vol] 33.1 g/dL 29.9-35.[address] [facility] MCV Auto (RBC) [Entitic vol] on 02-13-2024 MCV (RBC) [Entitic vol] 93.6 fL 80.0-94.0 [facility] Monocytes Auto (Bld) [#/Vol] on 02-13-2024 Monocytes (Bld) [#/Vol] 0.3 10 3/uL 0.3-0.8 [facility] [place] Monocytes/100 WBC Auto (Bld) on 02-13-2024 Monocytes/100 WBC (Bld) 7.0 % 1.7-12.0 [facility] Neutrophils Auto (Bld) [#/Vo l]on 02-13-2024 Neutrophils (Bld) [#/Vol] 2.6 10 3/uL 1.4-6.5 [facility] [place] Neutrophils/100 WBC Auto (Bl d)on 02-13-2024 Neutrophils/100 WBC (Bld) 69.4 % 43.0-75.0 [facility] [place] No Panel Informationon 02-12 Eosinophils # (Auto) 0.1 10 3/uL 0.0-0.[address] [facility] Immature Granulocyte # (Auto) 0.01 10 3/uL 0.00-0.03 [facility] [place] Platelet mean volume Auto (B ld) [Entitic vol]on 02-13-2024 Platelet mean volume (Bld) [Entitic vol] 9.2 fL Low 9.5-13.5 [facility] [place] Platelets Auto (Bld) [#/Vol] on 02-13-2024 Platelets (Bld) [#/Vol] 143 10 3/uL Low 150-450 [facility] [place] RBC Auto (Bld) [#/Vol]on RBC (Bld) [#/Vol] 4.20 10 6/uL Low 4.70-6.10 [facility] Iron binding capacity [Mass/ volume] in Serum or Plasmaon 01-30-2024 Iron binding capacity [Mass/Vol] 324.0 ug/dL 250.0-450.0 [facility] [place] Iron saturation [Mass Fracti on] in Serum or Plasmaon 01-30-2024 Iron saturation [Mass fraction] 25.9 % [facility] [place] Laboratory - Chemistry and C hemistry - challengeon 01-30-2024 Ferritin [Mass/Vol] 165.0 ng/mL 26.0-388.0 [facility] Iron [Mass/Vol] 84.0 ug/dL 65.0-175.0 [facility] [place] Basophils Auto (Bld) [#/Vol] on 01-17-2024 Basophils (Bld) [#/Vol] 0.0 10 3/uL 0.0-0.1 [facility] [place] Basophils/100 WBC Auto (Bld) on 01-17-2024 Basophils/100 WBC (Bld) 0.5 % 0.2-2.0 [facility] Eosinophils/100 WBC Auto (Bl d)on 01-17-2024 Eosinophils/100 WBC (Bld) 1.4 % 0.9-7.0 [facility] [place] Erythrocyte distribution wid th Auto (RBC) [Ratio]on 01-17-2024 Erythrocyte distribution width (RBC) [Ratio] 13.3 % 11.0-15.0 [facility] [place] Hematocrit Auto (Bld) [Volum e fraction]on 01-17-2024 Hematocrit (Bld) [Volume fraction] 36.9 % Low 42.0-54.0 [facility] [place] Hemoglobin [Mass/volume] in Bloodon 01-17-2024 Hemoglobin (Bld) [Mass/Vol] 12.3 g/dL Low 14.0-18.0 [facility] [place] Iron binding capacity [Mass/ volume] in Serum or Plasmaon 01-17-2024 Iron binding capacity [Mass/Vol] 321.0 ug/dL 250.0-450.0 [facility] [place] Iron saturation [Mass Fracti on] in Serum or Plasmaon 01-17-2024 Iron saturation [Mass fraction] 30.8 % [facility] [place] Laboratory - Chemistry and C hemistry - challengeon 01-17-2024 Ferritin [Mass/Vol] 183.0 ng/mL 26.0-388.0 [facility] Iron [Mass/Vol] 99.0 ug/dL 65.0-175.0 [facility] [place] Laboratory - Hematology and Cell countson 01-17-2024 Immature granulocytes/100 WBC (Bld) 0.8 % High 0.0-0.5 [facility] [place] Leukocytes [#/volume] correc nohemy for nucleated erythrocytes in Blood by Automated counon 01-17-2024 WBC corrected for nucl RBC Auto (Bld) [#/Vol] 3.7 10 3/uL Low 4.0-11.0 [facility] [place] Lymphocytes Auto (Bld) [#/Vo l]on 01-17-2024 Lymphocytes (Bld) [#/Vol] 0.9 10 3/uL Low 1.2-3.8 [facility] [place] Lymphocytes/100 WBC Auto (Bl d)on 01-17-2024 Lymphocytes/100 WBC (Bld) 25.2 % 20.5-60.0 [facility] [place] MCH Auto (RBC) [Entitic mass ]on 01-17-2024 MCH (RBC) [Entitic mass] 31.9 pg 25.9-34.0 [facility] [place] MCHC Auto (RBC) [Mass/Vol]on 01-17-2024 MCHC (RBC) [Mass/Vol] 33.3 g/dL 29.9-35.2 [facility] MCV Auto (RBC) [Entitic vol] on 01-17-2024 MCV (RBC) [Entitic vol] 95.8 fL High 80.0-94.0 [facility] Monocytes Auto (Bld) [#/Vol] on 01-17-2024 Monocytes (Bld) [#/Vol] 0.3 10 3/uL 0.3-0.8 [facility] [place] Monocytes/100 WBC Auto (Bld) on 01-17-2024 Monocytes/100 WBC (Bld) 7.0 % 1.7-12.0 [facility] Neutrophils Auto (Bld) [#/Vo l]on 01-17-2024 Neutrophils (Bld) [#/Vol] 2.4 10 3/uL 1.4-6.5 [facility] [place] Neutrophils/100 WBC Auto (Bl d)on 01-17-2024 Neutrophils/100 WBC (Bld) 65.1 % 43.0-75.0 [facility] [place] No Panel Informationon 01-16 Eosinophils # (Auto) 0.1 10 3/uL 0.0-0.7 [facility] Immature Granulocyte # (Auto) 0.03 10 3/uL 0.00-0.03 [facility] [place] Platelet mean volume Auto (B ld) [Entitic vol]on 01-17-2024 Platelet mean volume (Bld) [Entitic vol] 8.9 fL Low 9.5-13.5 [facility] [place] Platelets Auto (Bld) [#/Vol] on 01-17-2024 Platelets (Bld) [#/Vol] 126 10 3/uL Low 150-450 [facility] [place] RBC Auto (Bld) [#/Vol]on RBC (Bld) [#/Vol] 3.85 10 6/uL Low 4.70-6.10 [facility] Basophils Auto (Bld) [#/Vol] on 01-07-2024 Basophils (Bld) [#/Vol] 0.0 10 3/uL 0.0-0.1 [facility] [place] Basophils/100 WBC Auto (Bld) on 01-07-2024 Basophils/100 WBC (Bld) 0.5 % 0.2-2.0 [facility] Eosinophils/100 WBC Auto (Bl d)on 01-07-2024 Eosinophils/100 WBC (Bld) 1.6 % 0.9-7.0 [facility] [place] Erythrocyte distribution wid th Auto (RBC) [Ratio]on 01-07-2024 Erythrocyte distribution width (RBC) [Ratio] 13.4 % 11.0-15.0 [facility] [place] Hematocrit Auto (Bld) [Volum e fraction]on 01-07-2024 Hematocrit (Bld) [Volume fraction] 35.8 % Low 42.0-54.0 [facility] [place] Hemoglobin [Mass/volume] in Bloodon 01-07-2024 Hemoglobin (Bld) [Mass/Vol] 12.0 g/dL Low 14.0-18.0 [facility] [place] Laboratory - Hematology and Cell countson 01-07-2024 Immature granulocytes/100 WBC (Bld) 0.5 % 0.0-0.5 [facility] [place] Leukocytes [#/volume] correc nohemy for nucleated erythrocytes in Blood by Automated counon 01-07-2024 WBC corrected for nucl RBC Auto (Bld) [#/Vol] 3.8 10 3/uL Low 4.0-11.0 [facility] [place] Lymphocytes Auto (Bld) [#/Vo l]on 01-07-2024 Lymphocytes (Bld) [#/Vol] 0.7 10 3/uL Low 1.2-3.8 [facility] [place] Lymphocytes/100 WBC Auto (Bl d)on 01-07-2024 Lymphocytes/100 WBC (Bld) 18.6 % Low 20.5-60.0 [facility] [place] MCH Auto (RBC) [Entitic mass ]on 01-07-2024 MCH (RBC) [Entitic mass] 32.2 pg 25.9-34.0 [facility] [place] MCHC Auto (RBC) [Mass/Vol]on 01-07-2024 MCHC (RBC) [Mass/Vol] 33.5 g/dL 29.9-35.2 [facility] MCV Auto (RBC) [Entitic vol] on 01-07-2024 MCV (RBC) [Entitic vol] 96.0 fL High 80.0-94.0 [facility] Monocytes Auto (Bld) [#/Vol] on 01-07-2024 Monocytes (Bld) [#/Vol] 0.3 10 3/uL 0.3-0.8 [facility] [place] Monocytes/100 WBC Auto (Bld) on 01-07-2024 Monocytes/100 WBC (Bld) 7.6 % 1.7-12.0 [facility] Neutrophils Auto (Bld) [#/Vo l]on 01-07-2024 Neutrophils (Bld) [#/Vol] 2.7 10 3/uL 1.4-6.5 [facility] [place] Neutrophils/100 WBC Auto (Bl d)on 01-07-2024 Neutrophils/100 WBC (Bld) 71.2 % 43.0-75.0 [facility] [place] No Panel Informationon 01-06 Eosinophils # (Auto) 0.1 10 3/uL 0.0-0.7 [facility] Immature Granulocyte # (Auto) 0.02 10 3/uL 0.00-0.03 [facility] [place] Platelet mean volume Auto (B ld) [Entitic vol]on 01-07-2024 Platelet mean volume (Bld) [Entitic vol] 8.9 fL Low 9.5-13.5 [facility] [place] Platelets Auto (Bld) [#/Vol] on 01-07-2024 Platelets (Bld) [#/Vol] 127 10 3/uL Low 150-450 [facility] [place] RBC Auto (Bld) [#/Vol]on RBC (Bld) [#/Vol] 3.73 10 6/uL Low 4.70-6.10 [facility] Iron binding capacity [Mass/ volume] in Serum or Plasmaon 01-03-2024 Iron binding capacity [Mass/Vol] 332.0 ug/dL 250.0-450.0 [facility] [place] Iron saturation [Mass Fracti on] in Serum or Plasmaon 01-03-2024 Iron saturation [Mass fraction] 28.9 % [facility] [place] Laboratory - Chemistry and C hemistry - challengeon 01-03-2024 Ferritin [Mass/Vol] 300.0 ng/mL 26.0-388.0 [facility] Iron [Mass/Vol] 96.0 ug/dL 65.0-175.0 [facility] [place] Iron binding capacity [Mass/ volume] in Serum or Plasmaon 12-20-2023 Iron binding capacity [Mass/Vol] 301.0 ug/dL 250.0-450.0 [facility] [place] Iron saturation [Mass Fracti on] in Serum or Plasmaon 12-20-2023 Iron saturation [Mass fraction] 31.6 % [facility] [place] Laboratory - Chemistry and C hemistry - challengeon 12-20-2023 Ferritin [Mass/Vol] 449.0 ng/mL High 26.0-388.0 [facility] Iron [Mass/Vol] 95.0 ug/dL 65.0-175.0 [facility] [place] Basophils Auto (Bld) [#/Vol] on 12-10-2023 Basophils (Bld) [#/Vol] 0.0 10 3/uL 0.0-0.1 [facility] [place] Basophils/100 WBC Auto (Bld) on 12-10-2023 Basophils/100 WBC (Bld) 0.8 % 0.2-2.0 [facility] Eosinophils/100 WBC Auto (Bl d)on 12-10-2023 Eosinophils/100 WBC (Bld) 1.4 % 0.9-7.0 [facility] [place] Erythrocyte distribution wid th Auto (RBC) [Ratio]on 12-10-2023 Erythrocyte distribution width (RBC) [Ratio] 13.2 % 11.0-15.0 [facility] [place] Estimated glomerular filtrat ion rate (GFR) non- Americanon 12-10-2023 GFR/1.73 sq M.predicted among non-blacks MDRD (S/P/Bld) [Vol rate/Area] mL/min/{1.73_m2} >=60 [facility] Globulin Calc (S) [Mass/Vol] on 12-10-2023 Globulin (S) [Mass/Vol] 3.2 g/dL [facility] Hematocrit Auto (Bld) [Volum e fraction]on 12-10-2023 Hematocrit (Bld) [Volume fraction] 37.1 % Low 42.0-54.0 [facility] [place] Hemoglobin [Mass/volume] in Bloodon 12-10-2023 Hemoglobin (Bld) [Mass/Vol] 12.2 g/dL Low 14.0-18.0 [facility] [place] Iron binding capacity [Mass/ volume] in Serum or Plasmaon 12-10-2023 Iron binding capacity [Mass/Vol] 284.0 ug/dL 250.0-450.0 [facility] [place] Iron saturation [Mass Fracti on] in Serum or Plasmaon 12-10-2023 Iron saturation [Mass fraction] 32.0 % [facility] [place] Laboratory - Chemistry and C hemistry - challengeon 12-10-2023 Albumin [Mass/Vol] 3.9 g/dL 3.4-5.0 [facility] ALP [Catalytic activity/Vol] 74 U/L 46-116 [facility] [place] ALT [Catalytic activity/Vol] 33 U/L 16-63 [facility] [place] AST [Catalytic activity/Vol] 18 U/L 15-37 [facility] [place] Bilirubin [Mass/Vol] 0.7 mg/dL 0.2-1.0 [facility] Calcium [Mass/Vol] 9.1 mg/dL 8.5-10.1 [facility] Chloride [Moles/Vol] 106 mmol/L 98-107 [facility] CO2 [Moles/Vol] 23.3 mmol/L 21.0-32.0 [facility] Creatinine [Mass/Vol] 1.19 mg/dL 0.70-1.30 [facility] Ferritin [Mass/Vol] 507.0 ng/mL High 26.0-388.0 [facility] GFR/1.73 sq M.predicted MDRD (S/P/Bld) [Vol rate/Area] mL/min/{1.73_m2} >=60 [facility] [place] Glucose [Mass/Vol] 125 mg/dL High 74-106 [facility] Iron [Mass/Vol] 91.0 ug/dL 65.0-175.0 [facility] [place] Potassium [Moles/Vol] 4.0 mmol/L 3.5-5.1 [facility] Protein [Mass/Vol] 7.1 g/dL 6.4-8.2 [facility] Sodium [Moles/Vol] 141 mmol/L 136-145 [facility] Urea nitrogen [Mass/Vol] 16.0 mg/dL 7.0-18.0 [facility] [place] Urea nitrogen/Creatinine [Mass ratio] 13.4 mg/mg [facility] [place] Laboratory - Hematology and Cell countson 12-10-2023 Immature granulocytes/100 WBC (Bld) 0.6 % High 0.0-0.5 [facility] [place] Leukocytes [#/volume] correc nohemy for nucleated erythrocytes in Blood by Automated counon 12-10-2023 WBC corrected for nucl RBC Auto (Bld) [#/Vol] 3.6 10 3/uL Low 4.0-11.0 [facility] [place] Lymphocytes Auto (Bld) [#/Vo l]on 12-10-2023 Lymphocytes (Bld) [#/Vol] 1.1 10 3/uL Low 1.2-3.8 [facility] [place] Lymphocytes/100 WBC Auto (Bl d)on 12-10-2023 Lymphocytes/100 WBC (Bld) 30.1 % 20.5-60.0 [facility] [place] MCH Auto (RBC) [Entitic mass ]on 12-10-2023 MCH (RBC) [Entitic mass] 31.4 pg 25.9-34.0 [facility] [place] MCHC Auto (RBC) [Mass/Vol]on 12-10-2023 MCHC (RBC) [Mass/Vol] 32.9 g/dL 29.9-35.2 [facility] MCV Auto (RBC) [Entitic vol] on 12-10-2023 MCV (RBC) [Entitic vol] 95.6 fL High 80.0-94.0 [facility] Monocytes Auto (Bld) [#/Vol] on 12-10-2023 Monocytes (Bld) [#/Vol] 0.2 10 3/uL Low 0.3-0.8 [facility] [place] Monocytes/100 WBC Auto (Bld) on 12-10-2023 Monocytes/100 WBC (Bld) 5.8 % 1.7-12.0 [facility] Neutrophils Auto (Bld) [#/Vo l]on 12-10-2023 Neutrophils (Bld) [#/Vol] 2.2 10 3/uL 1.4-6.5 [facility] [place] Neutrophils/100 WBC Auto (Bl d)on 12-10-2023 Neutrophils/100 WBC (Bld) 61.3 % 43.0-75.0 [facility] [place] No Panel Informationon 12-09 Eosinophils # (Auto) 0.1 10 3/uL 0.0-0.7 [facility] Immature Granulocyte # (Auto) 0.02 10 3/uL 0.00-0.03 [facility] [place] Platelet mean volume Auto (B ld) [Entitic vol]on 12-10-2023 Platelet mean volume (Bld) [Entitic vol] 9.4 fL Low 9.5-13.5 [facility] [place] Platelets Auto (Bld) [#/Vol] on 12-10-2023 Platelets (Bld) [#/Vol] 130 10 3/uL Low 150-450 [facility] [place] RBC Auto (Bld) [#/Vol]on RBC (Bld) [#/Vol] 3.88 10 6/uL Low 4.70-6.10 [facility] Serum or plasma albumin/glob ulin mass ratioon 12-10-2023 Albumin/Globulin [Mass ratio] 1.2 {ratio} [facility] [place] Serum or plasma anion gap de terminationon 12-10-2023 Anion gap [Moles/Vol] 15.7 [facility] binding capacity [Mass/ volume] in Serum or Plasmaon 12-05-2023 Iron binding capacity [Mass/Vol] 332.0 ug/dL 250.0-450.0 [facility] [place] Iron saturation [Mass Fracti on] in Serum or Plasmaon 12-05-2023 Iron saturation [Mass fraction] 31.0 % [facility] [place] Laboratory - Chemistry and C hemistry - challengeon 12-05-2023 Ferritin [Mass/Vol] 597.0 ng/mL High 26.0-388.0 [facility] Iron [Mass/Vol] 103.0 ug/dL 65.0-175.0 [facility] Basophils Auto (Bld) [#/Vol] on 11-12-2023 Basophils (Bld) [#/Vol] 0.0 10 3/uL 0.0-0.1 [facility] [place] Basophils/100 WBC Auto (Bld) on 11-12-2023 Basophils/100 WBC (Bld) 0.5 % 0.2-2.0 [facility] Eosinophils/100 WBC Auto (Bl d)on 11-12-2023 Eosinophils/100 WBC (Bld) 1.0 % 0.9-7.0 [facility] [place] Erythrocyte distribution wid th Auto (RBC) [Ratio]on 11-12-2023 Erythrocyte distribution width (RBC) [Ratio] 13.2 % 11.0-15.0 [facility] [place] Hematocrit Auto (Bld) [Volum e fraction]on 11-12-2023 Hematocrit (Bld) [Volume fraction] 43.8 % 42.0-54.0 [facility] [place] Hemoglobin [Mass/volume] in Bloodon 11-12-2023 Hemoglobin (Bld) [Mass/Vol] 14.7 g/dL 14.0-18.0 [facility] [place] Malvin 11-12-2023 L Specimen: Received: 11/13/23 Status: JOSE Krishna Num: [id number] Spec Type: Impression Subm Dr: Peggy Rivas MD Tissues: PATHPER Procedures: PATHREVIEW Age/ Patient Sex Location Account Attending Physician Yuri No 68/M [facility] [id number] Peggy Rivas MD SPEC NUM: RECD: 11/13/23 STATUS: MELBAAdriana KRISHNA NUM: [id number] REGINALDO: 11/12/[address]: Peggy Rivas MD ENTERED: 11/13/[address] [facility] [address]: SPEC TYPE: Impression DEPT: ALIA Cardenas ENTERED BY: [id number] RECV BY: [id number] ORDERED: PATHREVIEW ORDERED: PATHREVIEW Pathologist Review Thrombocytopenia Is Noted. No Significant Increase In Schistocytes Or Spherocytes Is Identified. Differential Diagnosis Includes Peripheral Etiology (e.g. ITP, Drug-induced) Vs. Bone Marrow Disorder. Clinical Correlation Is Required. Specimen: [id number] Received: 11/13/23 Status: JOSE Sewellparamjit Num: [id number] Spec Type: Impression Subm Dr: Peggy Rivas MD Tissues: PATHPER Procedures: PATHREVIEW Patient: Yuri No [id number] (Continued) Signed (signatur e on file) Conner Naqvi MD 11/13/23 1543 [facility] Laboratory - Chemistry and C hemistry - challengeon 11-12-2023 LDH [Catalytic activity/Vol] 240 U/L 85-227 [facility] [place] Laboratory - Hematology and Cell countson 11-12-2023 Immature granulocytes/100 WBC (Bld) 0.8 % 0.0-0.5 [facility] [place] Leukocytes [#/volume] correc nohmey for nucleated erythrocytes in Blood by Automated counon 11-12-2023 WBC corrected for nucl RBC Auto (Bld) [#/Vol] 4.0 10 3/uL 4.0-11.0 [facility] [place] Lymphocytes Auto (Bld) [#/Vo l]on 11-12-2023 Lymphocytes (Bld) [#/Vol] 0.9 10 3/uL 1.2-3.8 [facility] [place] Lymphocytes/100 WBC Auto (Bl d)on 11-12-2023 Lymphocytes/100 WBC (Bld) 21.4 % 20.5-60.0 [facility] [place] MCH Auto (RBC) [Entitic mass ]on 11-12-2023 MCH (RBC) [Entitic mass] 31.7 pg 25.9-34.0 [facility] [place] MCHC Auto (RBC) [Mass/Vol]on 11-12-2023 MCHC (RBC) [Mass/Vol] 33.6 g/dL 29.9-35.[address] [facility] [facility] MCV Auto (RBC) [Entitic vol] on 11-12-2023 MCV (RBC) [Entitic vol] 94.4 fL 80.0-94.0 [facility] Monocytes Auto (Bld) [#/Vol] on 11-12-2023 Monocytes (Bld) [#/Vol] 0.3 10 3/uL 0.3-0.8 [facility] [place] Monocytes/100 WBC Auto (Bld) on 11-12-2023 Monocytes/100 WBC (Bld) 6.5 % 1.7-12.0 [facility] Neutrophils Auto (Bld) [#/Vo l]on 11-12-2023 Neutrophils (Bld) [#/Vol] 2.8 10 3/uL 1.4-6.5 [facility] Neutrophils/100 WBC Auto (Bl d)on 11-12-2023 Neutrophils/100 WBC (Bld) 69.8 % 43.0-75.0 [facility] [place] No Panel Informationon 11-11 Eosinophils # (Auto) 0.0 10 3/uL 0.0-0.[address] [facility] Immature Granulocyte # (Auto) 0.03 10 3/uL 0.00-0.03 [facility] [place] Platelet mean volume Auto (B ld) [Entitic vol]on 11-12-2023 Platelet mean volume (Bld) [Entitic vol] 8.9 fL 9.5-13.5 [facility] [place] Platelets Auto (Bld) [#/Vol] on 11-12-2023 Platelets (Bld) [#/Vol] 126 10 3/uL 150-450 [facility] [place] RBC Auto (Bld) [#/Vol]on RBC (Bld) [#/Vol] 4.64 10 6/uL 4.70-6.10 [facility] Albumin [Mass/volume] in Ser um or Plasmaon 10-28-2023 Albumin [Mass/Vol] 4.0 g/dL 2.9-4.4 [facility] Basophils Auto (Bld) [#/Vol] on 10-28-2023 Basophils (Bld) [#/Vol] 0.0 10 3/uL 0.0-0.1 [facility] [place] Basophils/100 WBC Auto (Bld) on 10-28-2023 Basophils/100 WBC (Bld) 0.5 % 0.2-2.0 [facility] Eosinophils/100 WBC Auto (Bl d)on 10-28-2023 Eosinophils/100 WBC (Bld) 1.4 % 0.9-7.0 [facility] [place] Erythrocyte distribution wid th Auto (RBC) [Ratio]on 10-28-2023 Erythrocyte distribution width (RBC) [Ratio] 13.2 % 11.0-15.0 [facility] [place] Hematocrit Auto (Bld) [Volum e fraction]on 10-28-2023 Hematocrit (Bld) [Volume fraction] 42.8 % 42.0-54.0 [facility] [place] Hemoglobin [Mass/volume] in Bloodon 10-28-2023 Hemoglobin (Bld) [Mass/Vol] 14.5 g/dL 14.0-18.0 [facility] IgA [Mass/volume] in Serum o r Plasmaon 10-28-2023 IgA [Mass/Vol] 219 mg/dL 61-437 [facility] [place] IgG [Mass/volume] in Serum o r Plasmaon 10-28-2023 IgG [Mass/Vol] 927 mg/dL 603-1613 [facility] [place] IgM [Mass/volume] in Serum o r Plasmaon 10-28-2023 IgM [Mass/Vol] 34 mg/dL 20-172 [facility] [place] Immunoglobulin light chains. kappa.free [Mass/volume] in Serumon 10-28-2023 Immunoglobulin light chains.kappa.free (S) [Mass/Vol] 24.1 mg/L 3.3-19.4 [facility] [place] Immunoglobulin light chains. kappa.free/Immunoglobulin light chains.lambda.free [Pebbles 10-28-2023 Immunoglobulin light chains.kappa.free/Immunog lobulin light chains.lambda.free (S) [Mass ratio] 1.64 0.26-1.65 [facility] [place] Comment on above: Performed at: [address] [id number] Director: You Barrow PhD, Phone: [phone] Immunoglobulin light chains. lambda.free [Mass/volume] in Serum or Plasmaon 10-28-2023 Immunoglobulin light chains.lambda.free [Mass/Vol] 14.7 mg/L 5.7-26.3 [facility] [place] Iron binding capacity [Mass/ volume] in Serum or Plasmaon 10-28-2023 Iron binding capacity [Mass/Vol] 293.0 ug/dL 250.0-450.0 [facility] [place] Iron saturation [Mass Fracti on] in Serum or Plasmaon 10-28-2023 Iron saturation [Mass fraction] 36.9 % [facility] [place] Laboratory - Chemistry and C hemistry - challengeon 10-28-2023 Ferritin [Mass/Vol] 709.0 ng/mL 26.0-388.0 [facility] Iron [Mass/Vol] 108.0 ug/dL 65.0-175.0 [facility] Laboratory - Hematology and Cell countson 10-28-2023 ESR (Bld) [Velocity] 27 mm/h <=20 [facility] Immature granulocytes/100 WBC (Bld) 0.5 % 0.0-0.5 [facility] [place] Leukocytes [#/volume] correc nohemy for nucleated erythrocytes in Blood by Automated counon 10-28-2023 WBC corrected for nucl RBC Auto (Bld) [#/Vol] 4.2 10 3/uL 4.0-11.0 [facility] [place] Lymphocytes Auto (Bld) [#/Vo l]on 10-28-2023 Lymphocytes (Bld) [#/Vol] 0.9 10 3/uL 1.2-3.8 [facility] [place] Lymphocytes/100 WBC Auto (Bl d)on 10-28-2023 Lymphocytes/100 WBC (Bld) 21.4 % 20.5-60.0 [facility] [place] MCH Auto (RBC) [Entitic mass ]on 10-28-2023 MCH (RBC) [Entitic mass] 31.5 pg 25.9-34.0 [facility] [place] MCHC Auto (RBC) [Mass/Vol]on 10-28-2023 MCHC (RBC) [Mass/Vol] 33.9 g/dL 29.9-35.[address] [facility] MCV Auto (RBC) [Entitic vol] on 10-28-2023 MCV (RBC) [Entitic vol] 92.8 fL 80.0-94.0 [facility] Monocytes Auto (Bld) [#/Vol] on 10-28-2023 Monocytes (Bld) [#/Vol] 0.3 10 3/uL 0.3-0.8 [facility] [place] Monocytes/100 WBC Auto (Bld) on 10-28-2023 Monocytes/100 WBC (Bld) 6.9 % 1.7-12.0 [facility] Neutrophils Auto (Bld) [#/Vo l]on 10-28-2023 Neutrophils (Bld) [#/Vol] 2.9 10 3/uL 1.4-6.5 [facility] [place] Neutrophils/100 WBC Auto (Bl d)on 10-28-2023 Neutrophils/100 WBC (Bld) 69.3 % 43.0-75.0 [facility] [place] No Panel Informationon 10-27 C-Reactive Protein, Quantitative <0.50 mg/dL <=0.50 [facility] [place] Eosinophils # (Auto) 0.1 10 3/uL 0.0-0.[address] [facility] Immature Granulocyte # (Auto) 0.02 10 3/uL 0.00-0.03 [facility] [place] Protein Electrophoresis M-Talon Not Observed g/dL Not Observed [facility] [place] Protein Electrophoresis Note Comment . [facility] [place] Comment on above: Protein electrophore sis scan will follow via computer,mail, or door frame builder delivery. Platelet mean volume Auto (B ld) [Entitic vol]on 10-28-2023 Platelet mean volume (Bld) [Entitic vol] 9.0 fL 9.5-13.5 [facility] [place] Platelets Auto (Bld) [#/Vol] on 10-28-2023 Platelets (Bld) [#/Vol] 126 10 3/uL 150-450 [facility] [place] Protein [Mass/volume] in Ser um or Plasmaon 10-28-2023 Protein [Mass/Vol] 6.8 g/dL 6.0-8.5 [facility] RBC Auto (Bld) [#/Vol]on RBC (Bld) [#/Vol] 4.61 10 6/uL 4.70-6.10 [facility] Serum globulin measurement ( mass/volume)on 10-28-2023 Globulin (S) [Mass/Vol] 2.8 g/dL 2.2-3.9 [facility] Serum or plasma albumin/glob ulin mass ratioon 10-28-2023 Albumin/Globulin [Mass ratio] 1.5 {ratio} 0.7-1.7 [facility] [place] Serum or plasma alpha 1 glob ulin measurement by electrophoresis (mass/volume)on 10-28-2023 Alpha 1 globulin Elph [Mass/Vol] 0.2 g/dL 0.0-0.4 [facility] [place] Serum or plasma alpha 2 glob ulin measurement by electrophoresis (mass/volume)on 10-28-2023 Alpha 2 globulin Elph [Mass/Vol] 0.7 g/dL 0.4-1.0 [facility] [place] Serum or plasma beta globuli n measurement by electrophoresis (mass/volume)on 10-28-2023 Beta globulin Elph [Mass/Vol] 1.1 g/dL 0.7-1.3 [facility] [place] Serum or plasma gamma globul in measurement by electrophoresis (mass/volume)on 10-28-2023 Gamma globulin Elph [Mass/Vol] 0.8 g/dL 0.4-1.8 [facility] [place] Serum or plasma immunoelectr ophoresis interpretationon 10-28-2023 Interpretation IEP [Interp] Comment . [facility] [place] Comment on above: No monoclonality det ected. Albumin [Mass/volume] in Ser um or Plasmaon 10-10-2023 Albumin [Mass/Vol] 4.0 g/dL 2.9-4.4 [facility] Basophils Auto (Bld) [#/Vol] on 10-10-2023 Basophils (Bld) [#/Vol] 0.0 10 3/uL 0.0-0.1 [facility] [place] Basophils/100 WBC Auto (Bld) on 10-10-2023 Basophils/100 WBC (Bld) 1.0 % 0.2-2.0 [facility] Eosinophils/100 WBC Auto (Bl d)on 10-10-2023 Eosinophils/100 WBC (Bld) 2.0 % 0.9-7.0 [facility] [place] Erythrocyte distribution wid th Auto (RBC) [Ratio]on 10-10-2023 Erythrocyte distribution width (RBC) [Ratio] 13.2 % 11.0-15.0 [facility] [place] Estimated glomerular filtrat ion rate (GFR) non- Americanon 10-10-2023 GFR/1.73 sq M.predicted among non-blacks MDRD (S/P/Bld) [Vol rate/Area] mL/min/{1.73_m2} >=60 [facility] Globulin Calc (S) [Mass/Vol] on 10-10-2023 Globulin (S) [Mass/Vol] 3.6 g/dL [facility] Hematocrit Auto (Bld) [Volum e fraction]on 10-10-2023 Hematocrit (Bld) [Volume fraction] 42.4 % 42.0-54.0 [facility] [place] Hemoglobin [Mass/volume] in Bloodon 10-10-2023 Hemoglobin (Bld) [Mass/Vol] 14.2 g/dL 14.0-18.0 [facility] [place] IgA [Mass/volume] in Serum o r Plasmaon 10-10-2023 IgA [Mass/Vol] 215 mg/dL 61-437 [facility] [place] IgG [Mass/volume] in Serum o r Plasmaon 10-10-2023 IgG [Mass/Vol] 976 mg/dL 603-1613 [facility] [place] IgM [Mass/volume] in Serum o r Plasmaon 10-10-2023 IgM [Mass/Vol] 31 mg/dL 20-172 [facility] [place] Immunoglobulin light chains. kappa.free [Mass/volume] in Serumon 10-10-2023 Immunoglobulin light chains.kappa.free (S) [Mass/Vol] 23.8 mg/L 3.3-19.4 [facility] [place] Immunoglobulin light chains. kappa.free/Immunoglobulin light chains.lambda.free [Pebbles 10-10-2023 Immunoglobulin light chains.kappa.free/Immunog lobulin light chains.lambda.free (S) [Mass ratio] 1.57 0.26-1.65 [facility] [place] Comment on above: Performed at: [place] [id number] Director: You Barrow PhD, Phone: [phone] Immunoglobulin light chains. lambda.free [Mass/volume] in Serum or Plasmaon 10-10-2023 Immunoglobulin light chains.lambda.free [Mass/Vol] 15.2 mg/L 5.7-26.3 [facility] [place] Laboratory - Chemistry and C hemistry - challengeon 10-10-2023 Albumin [Mass/Vol] 3.9 g/dL 3.4-5.0 [facility] ALP [Catalytic activity/Vol] 81 U/L 46-116 [facility] [place] ALT [Catalytic activity/Vol] 38 U/L 16-63 [facility] [place] AST [Catalytic activity/Vol] 17 U/L 15-37 [facility] [place] Bilirubin [Mass/Vol] 0.6 mg/dL 0.2-1.0 [facility] Calcium [Mass/Vol] 9.1 mg/dL 8.5-10.1 [facility] Chloride [Moles/Vol] 109 mmol/L 98-107 [facility] CO2 [Moles/Vol] 22.8 mmol/L 21.0-32.0 [facility] Cobalamin (Vitamin B12) [Mass/Vol] 770.0 pg/mL 193.0-986.0 [facility] [place] Creatinine [Mass/Vol] 1.00 mg/dL 0.70-1.30 [facility] Ferritin [Mass/Vol] 676.0 ng/mL 26.0-388.0 [facility] GFR/1.73 sq M.predicted MDRD (S/P/Bld) [Vol rate/Area] mL/min/{1.73_m2} >=60 [facility] [place] Glucose [Mass/Vol] 115 mg/dL 74-106 [facility] Potassium [Moles/Vol] 4.2 mmol/L 3.5-5.1 [facility] Protein [Mass/Vol] 7.5 g/dL 6.4-8.2 [facility] Sodium [Moles/Vol] 145 mmol/L 136-145 [facility] TSH Qn 1.282 m[IU]/L 0.358-3.740 [facility] [place] Urea nitrogen [Mass/Vol] 17.0 mg/dL 7.0-18.0 [facility] [place] Urea nitrogen/Creatinine [Mass ratio] 17.0 mg/mg [facility] [place] Laboratory - Hematology and Cell countson 10-10-2023 Immature granulocytes/100 WBC (Bld) 0.2 % 0.0-0.5 [facility] [place] Leukocytes [#/volume] correc nohemy for nucleated erythrocytes in Blood by Automated counon 10-10-2023 WBC corrected for nucl RBC Auto (Bld) [#/Vol] 4.1 10 3/uL 4.0-11.0 [facility] [place] Lymphocytes Auto (Bld) [#/Vo l]on 10-10-2023 Lymphocytes (Bld) [#/Vol] 1.0 10 3/uL 1.2-3.8 [facility] [place] Lymphocytes/100 WBC Auto (Bl d)on 10-10-2023 Lymphocytes/100 WBC (Bld) 24.6 % 20.5-60.0 [facility] [place] MCH Auto (RBC) [Entitic mass ]on 10-10-2023 MCH (RBC) [Entitic mass] 31.7 pg 25.9-34.0 [facility] [place] MCHC Auto (RBC) [Mass/Vol]on 10-10-2023 MCHC (RBC) [Mass/Vol] 33.5 g/dL 29.9-35.2 [facility] MCV Auto (RBC) [Entitic vol] on 10-10-2023 MCV (RBC) [Entitic vol] 94.6 fL 80.0-94.0 [facility] Monocytes Auto (Bld) [#/Vol] on 10-10-2023 Monocytes (Bld) [#/Vol] 0.3 10 3/uL 0.3-0.8 [facility] [place] Monocytes/100 WBC Auto (Bld) on 10-10-2023 Monocytes/100 WBC (Bld) 6.6 % 1.7-12.0 [facility] Neutrophils Auto (Bld) [#/Vo l]on 10-10-2023 Neutrophils (Bld) [#/Vol] 2.7 10 3/uL 1.4-6.5 [facility] [place] Neutrophils/100 WBC Auto (Bl d)on 10-10-2023 Neutrophils/100 WBC (Bld) 65.6 % 43.0-75.0 [facility] [place] No Panel Informationon 10-10 Eosinophils # (Auto) 0.1 10 3/uL 0.0-0.7 [facility] Immature Granulocyte # (Auto) 0.01 10 3/uL 0.00-0.03 [facility] [place] Protein Electrophoresis M-Talon Not Observed g/dL Not Observed [facility] [place] Protein Electrophoresis Note Comment . [facility] [place] Comment on above: Protein electrophore sis scan will follow via computer,mail, or door frame builder delivery. Platelet mean volume Auto (B ld) [Entitic vol]on 10-10-2023 Platelet mean volume (Bld) [Entitic vol] 9.0 fL 9.5-13.5 [facility] [place] Platelets Auto (Bld) [#/Vol] on 10-10-2023 Platelets (Bld) [#/Vol] 130 10 3/uL 150-450 [facility] [place] Protein [Mass/volume] in Ser um or Plasmaon 10-10-2023 Protein [Mass/Vol] 6.7 g/dL 6.0-8.5 [facility] RBC Auto (Bld) [#/Vol]on RBC (Bld) [#/Vol] 4.48 10 6/uL 4.70-6.10 [facility] Serum globulin measurement ( mass/volume)on 10-10-2023 Globulin (S) [Mass/Vol] 2.7 g/dL 2.2-3.9 [facility] Serum or plasma albumin/glob ulin mass ratioon 10-10-2023 Albumin/Globulin [Mass ratio] 1.1 {ratio} [facility] [place] Albumin/Globulin [Mass ratio] 1.5 {ratio} 0.7-1.7 [facility] [place] Serum or plasma alpha 1 glob ulin measurement by electrophoresis (mass/volume)on 10-10-2023 Alpha 1 globulin Elph [Mass/Vol] 0.2 g/dL 0.0-0.4 [facility] [place] Serum or plasma alpha 2 glob ulin measurement by electrophoresis (mass/volume)on 10-10-2023 Alpha 2 globulin Elph [Mass/Vol] 0.7 g/dL 0.4-1.0 [facility] [place] Serum or plasma anion gap de terminationon 10-10-2023 Anion gap [Moles/Vol] 17.4 mmol/L [facility] Serum or plasma beta globuli n measurement by electrophoresis (mass/volume)on 10-10-2023 Beta globulin Elph [Mass/Vol] 1.0 g/dL 0.7-1.3 [facility] [place] Serum or plasma gamma globul in measurement by electrophoresis (mass/volume)on 10-10-2023 Gamma globulin Elph [Mass/Vol] 0.8 g/dL 0.4-1.8 [facility] [place] Serum or plasma immunoelectr ophoresis interpretationon 10-10-2023 Interpretation IEP [Interp] Comment . [facility] [place] Comment on above: No monoclonality det ected. GLYCOHEMOGLOBIN A1Con 2021 ADA RECOMMENDATION SEE BELOW Normal [facility] Comment on above: Result Comment: ADA RECOMMENDED LIMIT 4.0 - 6.0 ADA THERAPEUTIC TARGET < 7.0 ACTION SUGGESTED > 7.0 Performed By: #### D ATA1C #### [facility] [address] [place] [address] Dr. Lucia Dee Glucose [Mass/Vol] 111 mg/dL Normal [facility] Comment on above: Performed By: #### D ATA1C #### [facility] [address] [place] [address] [address] Lucia Dee HbA1c (Bld) [Mass fraction] 5.5 % Normal 4.5-6.2 [facility] Comment on above: Performed By: #### D ATA1C #### [facility] [address] [place] [address] Dr. Lucia Dee CBC AUTO DIFFon 02-08-2022 BASO # 0.0 103/ul Normal 0.0-0.1 [facility] Comment on above: Performed By: #### C BC #### [facility] [address] [address] [address] Lucia Dee Basophils/100 WBC (Bld) 0.9 % Normal 0.2-2.0 [facility] Comment on above: Performed By: #### C BC #### [facility] [address] [place] [address] Dr. Lucia Dee EO # 0.1 103/ul Normal 0.0-0.7 [facility] Comment on above: Performed By: #### C BC #### [facility] [address] [place] [address] Dr. Lucia Dee Eosinophils/100 WBC (Bld) 2.2 % Normal 0.9-7.0 [facility] Comment on above: Performed By: #### C BC #### [facility] [address] [place] [address] Dr. Lucia Dee Erythrocyte distribution width (RBC) [Ratio] 13.2 % Normal 11.0-15.0 [facility] Comment on above: Performed By: #### C BC #### [facility] [address] [place] [address] Dr. Lucia Dee Hematocrit (Bld) [Volume fraction] 41.8 % Critically low 42.0-54.0 [facility] Comment on above: Performed By: #### C BC #### [facility] [address] [place] [address] Dr. Lucia Dee Hemoglobin (Bld) [Mass/Vol] 14.2 g/dL Normal 14.0-18.0 [facility] Comment on above: Performed By: #### C BC #### [facility] [address] [place] [address] Dr. Lucia Dee IG # 0.02 10e3/ul Normal 0.00-0.03 [facility] Comment on above: Performed By: #### C BC #### [facility] [address] [place] [address] Dr. Lucia Dee IG % 0.4 % Normal 0.0-0.5 [facility] Comment on above: Performed By: #### C BC #### [facility] [address] [place] [address] Dr. Lucia Dee LYMPH # 1.0 103/ul Critically low 1.2-3.8 [facility] Comment on above: Performed By: #### C BC #### [facility] [address] [place] [address] Dr. Lucia Dee Lymphocytes/100 WBC (Bld) 22.3 % Normal 20.5-60.0 [facility] Comment on above: Performed By: #### C BC #### [facility] [address] [place] [address] Dr. Lucia Dee MANUAL DIFF REQ NO Normal [facility] Comment on above: Performed By: #### C BC #### [facility] [address] [place] [address] Dr. Lucia Dee MCH (RBC) [Entitic mass] 31.8 pg Normal 25.9-34.0 [facility] Comment on above: Performed By: #### C BC #### [facility] [address] [address] [address] Lucia Dee MCHC (RBC) [Mass/Vol] 34.0 g/dL Normal 29.9-35.2 [facility] Comment on above: Performed By: #### C BC #### [facility] [address] [address] [address] Lucia Dee MCV (RBC) [Entitic vol] 93.5 fL Normal 80.0-94.0 [facility] Comment on above: Performed By: #### C BC #### [facility] [address] [address] [address] Lucia Dee MONO # 0.3 103/ul Normal 0.3-0.8 [facility] Comment on above: Performed By: #### C BC #### [facility] [address] [place] [address] Dr. Lucia Dee Monocytes/100 WBC (Bld) 7.2 % Normal 1.7-12.0 [facility] Comment on above: Performed By: #### C BC #### [facility] [address] [place] [address] Dr. Lucia Dee NEUT # 3.1 103/ul Normal 1.4-6.5 [facility] Comment on above: Performed By: #### C BC #### [facility] [address] [place] [address] Dr. Lucia Dee Neutrophils/100 WBC (Bld) 67.0 % Normal 43.0-75.0 [facility] Comment on above: Performed By: #### C BC #### [facility] [address] [place] [address] Dr. Lucia Dee Platelet mean volume (Bld) [Entitic vol] 8.7 fL Critically low 9.5-13.5 [facility] Comment on above: Performed By: #### C BC #### [facility] [address] [place] [address] Dr. Lucia Dee PLT 121 103/ul Critically low 150-450 [facility] Comment on above: Performed By: #### C BC #### [facility] [address] [address] [address] Lucia Dee RBC 4.47 106/ul Critically low 4.70-6.10 [facility] Comment on above: Performed By: #### C BC #### [facility] [address] [address] [address] Lucia Dee WBC 4.6 103/ul Normal 4.0-11.0 [facility] Comment on above: Performed By: #### C BC #### [facility] [address] [place] [address] Dr. Lucia Dee PROF CHEM 8 (BAS METB)on Anion gap [Moles/Vol] 13.4 mmol/L Normal [facility] Comment on above: Performed By: #### B MP #### [facility] [address] [place] [address] Dr. Lucia Dee Calcium [Mass/Vol] 9.1 mg/dL Normal 8.5-10.1 [facility] Comment on above: Performed By: #### B MP #### [facility] [address] [place] [address] Dr. Lucia Dee Chloride [Moles/Vol] 107 mmol/L Normal 98-107 [facility] Comment on above: Performed By: #### B MP #### [facility] [address] [place] [address] Dr. Lucia Dee CO2 [Moles/Vol] 25.5 mmol/L Normal 21.0-32.0 [facility] Comment on above: Performed By: #### B MP #### [facility] [address] [place] [address] Dr. Lucia Dee Creatinine [Mass/Vol] 1.13 mg/dL Normal 0.70-1.30 [facility] Comment on above: Performed By: #### B MP #### [facility] [address] [place] [address] Dr. Lucia Dee EGFR-AF BRUNEIAN >60 Normal >=[address] [facility] Comment on above: Performed By: #### B MP #### [facility] [address] [address] [address] Lucia Dee EGFR-NON AF BRUNEIAN >60 Normal >=60 [facility] Comment on above: Performed By: #### B MP #### [facility] [facility] [address] [address] [address] Lucia Dee Glucose [Mass/Vol] 122 mg/dL Critically high 74-106 [facility] Comment on above: Performed By: #### B MP #### [facility] [address] [address] [address] Lucia Dee Potassium [Moles/Vol] 3.9 mmol/L Normal 3.5-5.1 [facility] Comment on above: Performed By: #### B MP #### [facility] [address] [place] [address] Dr. Lucia Dee Sodium [Moles/Vol] 142 mmol/L Normal 136-145 [facility] Comment on above: Performed By: #### B MP #### [facility] [address] [place] [address] Dr. Lucia Dee Urea nitrogen [Mass/Vol] 15.0 mg/dL Normal 7.0-18.0 [facility] Comment on above: Performed By: #### B MP #### [facility] [address] [place] [address] Dr. Lucia Dee Urea nitrogen/Creatinine [Mass ratio] 13.3 mg/mg Normal [facility] Comment on above: Performed By: #### B MP #### [facility] [address] [place] [address] Dr. Lucia Dee CBC AUTO DIFFon 05-17-2021 BASO # 0.0 103/ul Normal 0.0-0.1 [facility] Comment on above: Performed By: #### C BC #### [facility] [address] [place] [address] Dr. Lucia Dee Basophils/100 WBC (Bld) 0.9 % Normal 0.2-2.0 [facility] Comment on above: Performed By: #### C BC #### [facility] [address] [place] [address] Dr. Lucia Dee EO # 0.1 103/ul Normal 0.0-0.7 [facility] Comment on above: Performed By: #### C BC #### [facility] [address] [place] [address] Dr. Lucia Dee Eosinophils/100 WBC (Bld) 2.6 % Normal 0.9-7.0 [facility] Comment on above: Performed By: #### C BC #### [facility] [address] [place] [address] Dr. Lucia Dee Erythrocyte distribution width (RBC) [Ratio] 13.2 % Normal 11.0-15.0 [facility] Comment on above: Performed By: #### C BC #### [facility] [address] [place] [address] Dr. Lucia Dee Hematocrit (Bld) [Volume fraction] 44.7 % Normal 42.0-54.0 [facility] Comment on above: Performed By: #### C BC #### [facility] [address] [place] [address] Dr. Lucia Dee Hemoglobin (Bld) [Mass/Vol] 14.9 g/dL Normal 14.0-18.0 [facility] Comment on above: Performed By: #### C BC #### [facility] [address] [place] [address] Dr. Lucia Dee IG # 0.02 10e3/ul Normal 0.00-0.03 [facility] Comment on above: Performed By: #### C BC #### [facility] [address] [place] [address] Dr. Lucia Dee IG % 0.5 % Normal 0.0-0.5 [facility] Comment on above: Performed By: #### C BC #### [facility] [address] [place] [address] Dr. Lucia Dee LYMPH # 1.1 103/ul Critically low 1.2-3.8 [facility] Comment on above: Performed By: #### C BC #### [facility] [address] [place] [address] Dr. Lucia Dee Lymphocytes/100 WBC (Bld) 26.4 % Normal 20.5-60.0 [facility] Comment on above: Performed By: #### C BC #### [facility] [address] [place] [address] Dr. Lucia Dee MANUAL DIFF REQ NO Normal [facility] Comment on above: Performed By: #### C BC #### [facility] [address] [place] [address] Dr. Lucia Dee MCH (RBC) [Entitic mass] 31.3 pg Normal 25.9-34.0 [facility] Comment on above: Performed By: #### C BC #### [facility] [address] [place] [address] Dr. Lucia Dee MCHC (RBC) [Mass/Vol] 33.3 g/dL Normal 29.9-35.2 [facility] Comment on above: Performed By: #### C BC #### [facility] [address] [place] [address] Dr. Lucia Dee MCV (RBC) [Entitic vol] 93.9 fL Normal 80.0-94.0 [facility] Comment on above: Performed By: #### C BC #### [facility] [address] [place] [address] Dr. Lucia Dee MONO # 0.3 103/ul Normal 0.3-0.8 [facility] Comment on above: Performed By: #### C BC #### [facility] [address] [place] [address] Dr. Lucia Dee Monocytes/100 WBC (Bld) 7.3 % Normal 1.7-12.0 [facility] Comment on above: Performed By: #### C BC #### [facility] [address] [place] [address] Dr. Lucia Dee NEUT # 2.6 103/ul Normal 1.4-6.5 [facility] Comment on above: Performed By: #### C BC #### [facility] [address] [place] [address] Dr. Lucia Dee Neutrophils/100 WBC (Bld) 62.3 % Normal 43.0-75.0 [facility] Comment on above: Performed By: #### C BC #### [facility] [address] [place] [address] Dr. Lucia Dee Platelet mean volume (Bld) [Entitic vol] 8.9 fL Critically low 9.5-13.5 [facility] Comment on above: Performed By: #### C BC #### [facility] [address] [place] [address] Dr. Lucia Dee PLT 142 103/ul Critically low 150-450 [facility] Comment on above: Performed By: #### C BC #### [facility] [address] [place] [address] Dr. Lucia Dee RBC 4.76 106/ul Normal 4.70-6.10 [facility] Comment on above: Performed By: #### C BC #### [facility] [address] [place] [address] Dr. Lucia Dee WBC 4.2 103/ul Normal 4.0-11.0 [facility] Comment on above: Performed By: #### C BC #### [facility] [address] [place] [address] Dr. Lucia Dee FERRITINon 05-17-2021 Ferritin [Mass/Vol] 809.0 ng/mL Critically high 17.9-464.0 [facility] Comment on above: Performed By: #### F ERR, B12FOL, FETIBC #### [facility] [address] [place] [address] Dr. Lucia Dee IRON AND TIBCon 05-17-2021 % SATURATION 38.0 % Normal [facility] Comment on above: Performed By: #### F ERR, B12FOL, FETIBC #### [facility] [address] [place] [address] Dr. Lucia Dee Iron [Mass/Vol] 119.0 ug/dL Normal 49.0-181.0 [facility] Comment on above: Performed By: #### F ERR, B12FOL, FETIBC #### [facility] [address] [place], [place] [address] Dr. Lucia Dee TIBC DIRECT 313.0 ug/dL Normal 261.0-497.0 [facility] Comment on above: Performed By: #### F ERR, B12FOL, FETIBC #### [facility] [address] [place], [place] [address] Dr. Lucia Dee VIT B12 AND FOLATEon 021 Cobalamin (Vitamin B12) [Mass/Vol] 674.0 pg/mL Normal 239.0-931.0 [facility] Comment on above: Performed By: #### F ERR, B12FOL, FETIBC #### [facility] [address] [place], [place] [address] Dr. Lucia Dee FOLATE 7.10 ng/mL Normal >=2.76 [facility] Comment on above: Performed By: #### F ERR, B12FOL, FETIBC #### [facility] [address] [place], [place] [address] Dr. Lucia Dee Vital Signs Date Time Vital Sign Value Performing Clinician Facility 02-20-2024 09:57-0400 Body height 185.42 cm [facility] 02-20-2024 09:57-0400 Body mass index (BMI) [Ratio] 27 kg/m2 [facility] 02-20-2024 09:57-0400 Body weight 93.04 kg [facility] 02-20-2024 09:57-0400 Diastolic blood pressure 72 mm[Hg] [facility] 02-20-2024 09:57-0400 Heart rate 67 /min [facility] 02-20-2024 09:57-0400 Respiratory rate 12 /min [facility] 02-20-2024 09:57-0400 Systolic blood pressure 120 mm[Hg] [facility] 10-30-2023 15:30-0500 Body height 185.42 cm DO [facility]erky Work Phone: [facility] 10-30-2023 15:30-0500 Body mass index (BMI) [Ratio] 29.4 kg/m2 DO [facility] Work Phone: [facility] 10-30-2023 15:30-0500 Body weight 101.15 kg DO Han Ball Work Phone: [facility] 10-30-2023 15:30-0500 Diastolic blood pressure 80 mm[Hg] DO Han Ball Work Phone: [facility] 10-30-2023 15:30-0500 Heart rate 68 /min DO Han Ball Work Phone: [facility] 10-30-2023 15:30-0500 Respiratory rate 12 /min DO Han Ball Work Phone: [facility] 10-30-2023 15:30-0500 Systolic blood pressure 132 mm[Hg] DO Han Ball Work Phone: [facility] 02-14-2023 10:00-0400 Body height 185.42 cm Han Ball Other [facility] [employer] Other 02-14-2023 10:00-0400 Body mass index (BMI) [Ratio] 28.57 kg/m2 Han Ball Other [facility] [employer] Other 02-14-2023 10:00-0400 Body weight 98.25 kg Han Ball Other [employer] Other 02-14-2023 10:00-0400 Diastolic blood pressure 76 mm[Hg] Han Ball Other [employer] Other 02-14-2023 10:00-0400 Respiratory rate 12 /min Han Ball Other [employer] Other 02-14-2023 10:00-0400 Systolic blood pressure 118 mm[Hg] Han Ball Other [employer] Other Encounters Encounter Date Encounter Type Care Provider Facility Start: 02-20-2024 End: 02-20-2024 ambulatory [facility] Work Phone: Start: 02-20-2024 End: 02-20-2024 [facility] Work [facility]: Start: 02-13-2024 Non-patient / Non-visit [facility] Work Phone: Start: 01-30-2024 Non-patient / Non-visit [facility] Work Phone: Start: 01-17-2024 Non-patient / Non-visit [facility] Work Phone: Start: 01-07-2024 Non-patient / Non-visit [facility] Work Phone: Start: 01-03-2024 Non-patient / Non-visit [facility] Work Phone: Start: 12-20-2023 Non-patient / Non-visit [facility] Work Phone: Start: 12-10-2023 Non-patient / Non-visit [facility] Work Phone: Start: 12-05-2023 Non-patient / Non-visit [facility] Work Phone: Start: 11-12-2023 End: 11-12-2023 ambulatory Peggy Evelyn Facility:[facility] Start: 11-12-2023 End: 11-12-2023 ambulatory DO Han Diaz Work Phone: [facility] Work Phone: Start: 11-12-2023 End: 11-12-2023 Departed Referred DO Han Diaz Work Phone: [facility] Start: 11-12-2023 Non-patient / Non-visit DO Brant Diaz Work Phone: [facility] Work Phone: Start: 10-30-2023 End: 10-30-2023 Patient encounter procedure DO Han Ball Work Phone: [facility] Work Phone: Start: 10-28-2023 Non-patient / Non-visit DO Brant Diaz Work Phone: [facility] Work Phone: Start: 10-10-2023 Non-patient / Non-visit DO Brant Diaz Work Phone: [facility] Work Phone: Start: 09-05-2023 End: 09-05-2023 ambulatory Han Diaz Other [employer] Other Start: 09-05-2023 Telephone encounter Han Ball [facility] Start: 06-12-2023 End: 06-12-2023 ambulatory Han Ball Other [employer] Other Start: 06-12-2023 Telephone encounter Han Ball [facility] Start: 05-29-2023 End: 05-29-2023 ambulatory Han Ball Other [employer] Other Start: 05-29-2023 Telephone encounter Han Ball [facility] Start: 02-22-2023 End: 02-22-2023 ambulatory Han Ball Other [employer] Other Start: 02-22-2023 Telephone encounter Han Ball [facility] Start: 02-15-2023 End: 02-15-2023 ambulatory Han Ball Other [employer] Other Start: 02-15-2023 Telephone encounter Han Ball [facility] Start: 02-14-2023 End: 02-14-2023 ambulatory Han Ball Other [employer] Other Start: 02-14-2023 Patient encounter procedure [facility] Start: 02-28-2022 End: 03-01-[address] HAN DIAZ Facility:[facility] Start: 02-08-2022 Adult health examination Han Diaz Other [employer] Other Start: 02-08-2022 End: 02-09-[address] HAN DIAZ Facility:[facility] Start: 05-17-2021 End: 05-18-[address] HAN DIAZ Facility:[facility] Procedures Date Procedure Procedure Detail Performing Clinician Start: 02-08-[address] PEREZ IN [place] Comment on above: Performed By: #### P [facility] #### [facility] [address] [place] [address] Dr. Lucia Dee Start: 12-23-2018 Screening for malign ant neoplasm of colon Han Diaz Other Depression screening [employer] [facility] Other Hyperlipidemia screening Brant Diaz Other Screening for malign ant neoplasm of prostate Han Diaz Other Viral screening [facility] Other Plan of Treatment Date Care Activity Detail Author Start: 10-30-2023 Patient referral [facility] Work Phone: Barium swallow [facility] Comprehensive metabo lic 2000 panel - Serum or Plasma [facility] Patient referral [facility] Work Phone: [facility] Immunizations Immunization Date Immunization Notes Care Provider [facility] 06-24-2018 diphtheria, tetanus toxoids and acellular pertussis vaccine, unspecified formulation Han Diaz Other [facility] Payers Date Payer Category Payer Medicare [id number] 1961 Self-pay 1955 Unknown [id number] 1955 Unknown [id number] [id number] [id number] Unknown [id number] [id number] [id number] Unknown [id number] Social History Date Type Detail Facility Sex Assigned At [employer] Other Start: 1955 Sex Assigned At Male [facility] Evaluation note 09-05-2023 Note Date & Type Note Facility 09-05-2023 Evaluation note Encounter Date Diagnosis Assessment Notes Aug, CHELE (generalized anxiety disorder) (ICD-10 - F41.1) [employer] Other Evaluation note 05-29-2023 Note Date & Type Note Facility 05-29-2023 Evaluation note Encounter Date Diagnosis Assessment Notes May, Thrombocytopenia (ICD-10 - D69.6) [employer] Other Evaluation note 02-15-2023 Note Date & Type Note Facility 02-15-2023 Evaluation note Encounter Date Diagnosis Assessment Notes Jan, CHELE (generalized anxiety disorder) (ICD-10 - F41.1) [employer] Other Evaluation note 02-14-2023 Note Date & [...] High risk medication use (ICD-10 - Z79.899) [employer] Other Evaluation note Note Date & Type Note Facility Evaluation note No Information [employer] Other Evaluation note Note Date & Type Note Facility Evaluation note Diagnosis Onset Date Dysesthesia acute Dysphagia acute Elevated ferritin acute CHELE (generalized anxiety disorder) acute IFG (impaired fasting glucose) acute Thrombocytopenia acute [facility] Work Phone: Evaluation note Note Date & Type Note Facility Evaluation note Diagnosis Onset Date Benign prostatic hyperplasia with lower urinary tract symptoms acute CHELE (generalized anxiety disorder) acute Hemochromatosis acute IFG (impaired fasting glucose) acute Peripheral polyneuropathy ac [place] Screening PSA (prostate specific antigen) acute Medicare annual wellness visit, subsequent noneactive [facility] Work Phone: History general Narrative - Reported Note Date & Type Note Facility History general Narrative - Reported Type Medical History CHELE (generalized anxiety disorde r) Medical History Benign prostatic hyp erplasia with lower urinary tract symptoms Medical History Cigarette nicotine dependence in remission Medical History Lumbar spondylosis Medical History Thrombocytopenia [employer] Other History general Narrative - Reported Note [...] no changes required, Problem Status : Resolved, [employer] Other Summary Purpose Family History Relationship Condition [...] DATE CREATED AUTHOR 'S ORGANIZ ATION 11/14/2023 [facility] REASON FOR VISIT (unrecogniz ed section and content) WELLNESSMedicationLab Result srepeat labsLab resultsRefashtabula general [facility] Care Teams (unrecognized sec tion and [...] BE BASED ON THE PRIMARY CLINICAL RECORDS. [facility]. provides no warranty or guarantee of the accuracy or completeness of information in this document.
== END 2024-10-28 08:19 | disposition home or self-care (01) ==
LOC: HEMC 07:46
PROVIDERS: PCP Internal Medicine; Visit Provider Internal Medicine Hematology & Oncology
DX: E83.119 Hemochromatosis, unspecified (principal); R79.89 Other specified abnormal findings of blood chemistry; D69.6 Thrombocytopenia, unspecified; D72.819 Decreased white blood cell count, unspecified; D64.9 Anemia, unspecified; Z87.891 Personal history of nicotine dependence
CPT/HCPCS: G0463

== ENCOUNTER 2025-02-15 15:10 | Emergency (ER) | payer MEDICARE, SELFPAY ==
--- OUTSIDE RECORDS SUMMARY | 2024-04-21 10:30 | XMS_ITS ---
Author Organization [facility] [place] Address [address] [place] [address] Care Team Providers Care Trencher Driver Name Role Phone Han Diaz DO Primary Care Provider Peggy Tinajero [phone] REASON FOR VISIT MD Encounters Encounter Location Date Provider Diagnosis [facility] [address] [place] [address] 04/21/2024 Peggy Rivas Plan Of Treatment Next Appt Details Provider Name:Peggy Rivas , 03/30/2025 02:30:00 PM, [address] [place], [address], Progress Notes * Yuri NO RDOB:[birth year] (69 yo M)Acc No.[id number]:04/21/2024 UNLOCKED PROGRESS NOTE Progress Notes Patient: Shira Yuri ENAMORADO Provider: Jensen Rivas M.D. :1955 A ge:68 Y S ex:Male Date:04/21/2024 Address:[address], [address] , [place], [id number] Pcp:Han Diaz DO Subjective: * Chief Complaints: * 1 . MD. * Medical History: Objective: * Vitals: Assessment: Plan: * Treatment: * * Electronic signature of Raul Rivas MD, [id number] on 02/15/2025 at 02:40 PM EDT Sign off status: Pending Visit Status: P EN (Pending) * Provider: Jensen Rivas M.D. Date: 0 04/21/2024 Generated for eDloris willis/Luna/Ryan on: 0 02/15/2025 02:40 PM EDT
--- OUTSIDE RECORDS SUMMARY | 2024-10-27 10:30 | XMS_ITS ---
Author Organization The [facility] in [place] Address [address] [place] [address] Care Team Providers Care Delinquency Prevention Officer Name Role Phone Han Diaz DO Primary Care Provider Peggy Tinajero [phone] REASON FOR VISIT MD Encounters Encounter Location Date Provider Diagnosis [facility] On[facility] [address] [place] [address] 10/27/2024 Peggy Rivas Plan Of Treatment Next Appt Details Provider Name:Peggy Rivas , 03/30/2025 02:30:00 PM, [address] [place], [address], Progress Notes * Yuri NO RDOB:[birth year] (69 yo M)Acc No.[id number]:10/27/2024 UNLOCKED PROGRESS NOTE Progress Notes Patient: Shira Yuri ENAMORADO Provider: Jensen Rivas M.D. :1955 A ge:69 Y S ex:Male Date:10/27/2024 Address:[address], [address] , [place], [id number] Pcp:Han Diaz DO Subjective: * Chief Complaints: * 1 . MD. * Medical History: Objective: * Vitals: Assessment: Plan: * Treatment: * * Electronic signature of Raul Rivas MD, [id number] on 02/15/2025 at 02:40 PM EDT Sign off status: Pending Visit Status: A [facility] (Voice) * Provider: Jensen Rivas M.D. Date: 0 10/27/2024 Generated for Deloris willis/Luna/Ryan on: 0 02/15/2025 02:40 PM EDT
[2025-02-15 15:12] VITALS: BP 144/83; PULSE 63; TEMP 36.9; O2SAT 97; BMI 28.8
--- OUTSIDE RECORDS SUMMARY | 2025-02-15 15:22 | XMS_ITS | Patient Health Record ---
Author Organization The [facility] [place] in [place] Address [address] [place] [address] Care Team Providers Care Medical Library Assistant Name Role Phone Han Diaz DO Primary Care Provider Peggy Tinajero Unavailable [phone] Results Component Value Reference Range Notes CBC AUTO DIFF (Not yet revie wed by provider) Interpretation: Performing Lab: Notes/Report: [facility] , White Blood Count 3.6 4.0-11.0 10 3/uL Red Blood Count 4.57 4.70-6.10 10 6/uL Hemoglobin 13.9 14.0-18.0 g/dL Hematocrit 41.4 42.0-54.0 % Mean Corpuscular Volume 90.6 80.0-94.0 fL Mean Corpuscular Hemoglobin 30.4 25.9-34.0 pg Mean Corpuscular HGB Conc 33.6 29.9-35.2 g/dL Red Cell Distribution Width 13.1 11.0-15.0 % Platelet Count 123 150-450 10 3/uL Mean Platelet Volume 9.0 9.5-13.5 fL Neutrophils Percent Auto 68.2 43.0-75.0 % Lymphocytes Percent Auto 22.8 20.5-60.0 % Monocytes Percent Auto 6.7 1.7-12.0 % Eosinophils Percent Auto 1.4 0.9-7.0 % Basophils Percent Auto 0.6 0.2-2.0 % Immature Granulocytes Pct Auto 0.3 0.0-0.5 % Neutrophils Absolute Auto 2.5 1.4-6.5 10 3/uL Lymphocytes Absolute Auto 0.8 1.2-3.8 10 3/uL Monocytes Absolute Auto 0.2 0.3-0.8 10 3/uL Eosinophils Absolute Auto 0.1 0.0-0.7 10 3/uL Basophils Absolute Auto 0.0 0.0-0.1 10 3/uL Immature Granulocytes Abs Auto 0.01 0.00-0.03 10 3/uL Performing Lab: see note ML - [facility] LB FERRITIN (Not yet reviewed b y provider) Interpretation: Performing Lab: Notes/Report: [facility] , Ferritin 117.0 26.0-388.0 ng/mL Performing Lab: see note ML - [facility] LB IRON AND TIBC (Not yet revie wed by provider) Interpretation: Performing Lab: Notes/Report: [facility] , Iron 125.0 65.0-175.0 ug/dL Total Iron Binding Capacity 332.0 250.0-450.0 u g/dL Percent Iron Saturation 37.7 Performing Lab: see note ML - [facility] LB PROF CHEM 8 (BAS METB) (Not yet reviewed by provider) Interpretation: Performing Lab: Notes/Report: [facility] , Sodium 139 136-145 mmol/L Potassium 4.0 3.5-5.1 mmol/L Chloride 105 98-107 mmol/L Carbon Dioxide 25.9 21.0-32.0 mmol/L Anion Gap 12.1 Glucose 106 74-106 mg/dL Blood Urea Nitrogen 16.0 7.0-18.0 mg/dL Creatinine 1.04 0.70-1.30 mg/dL Estimated GFR ( Zakia >60 >=60 Estimated GFR (Non- Anayeli >60 >=60 BUN Creatinine Ratio 15.4 Calcium 9.1 8.5-10.1 mg/dL Performing Lab: see note ML - [facility] LB CBC AUTO DIFF (Not yet revie wed by provider) Interpretation: Performing Lab: Notes/Report: [facility] , White Blood Count 3.7 4.0-11.0 10 3/uL Red Blood Count 4.35 4.70-6.10 10 6/uL Hemoglobin 13.7 14.0-18.0 g/dL Hematocrit 41.0 42.0-54.0 % Mean Corpuscular Volume 94.3 80.0-94.0 fL Mean Corpuscular Hemoglobin 31.5 25.9-34.0 pg Mean Corpuscular HGB Conc 33.4 29.9-35.2 g/dL Red Cell Distribution Width 13.7 11.0-15.0 % Platelet Count 117 150-450 10 3/uL Mean Platelet Volume 8.8 9.5-13.5 fL Neutrophils Percent Auto 64.9 43.0-75.0 % Lymphocytes Percent Auto 23.7 20.5-60.0 % Monocytes Percent Auto 8.2 1.7-12.0 % Eosinophils Percent Auto 1.9 0.9-7.0 % Basophils Percent Auto 0.5 0.2-2.0 % Immature Granulocytes Pct Auto 0.8 0.0-0.5 % Neutrophils Absolute Auto 2.4 1.4-6.5 10 3/uL Lymphocytes Absolute Auto 0.9 1.2-3.8 10 3/uL Monocytes Absolute Auto 0.3 0.3-0.8 10 3/uL Eosinophils Absolute Auto 0.1 0.0-0.7 10 3/uL Basophils Absolute Auto 0.0 0.0-0.1 10 3/uL Immature Granulocytes Abs Auto 0.03 0.00-0.03 10 3/uL Performing Lab: see note ML - [facility] LB PROF 14(COMP METB) (Not yet reviewed by provider) Interpretation: Performing Lab: Notes/Report: [facility] , Sodium 141 136-145 mmol/L Potassium 4.3 3.5-5.1 mmol/L Chloride 106 98-107 mmol/L Carbon Dioxide 25.0 21.0-32.0 mmol/L Anion Gap 14.3 Glucose 105 74-106 mg/dL Blood Urea Nitrogen 18.0 7.0-18.0 mg/dL Creatinine 1.16 0.70-1.30 mg/dL Estimated GFR ( Zakia >60 >=60 mL/mi n/1.73m 2 Estimated GFR (Non- Anayeli >60 >=60 mL/mi n/1.73m 2 BUN Creatinine Ratio 15.5 Calcium 9.4 8.5-10.1 mg/dL Bilirubin Total 0.9 0.2-1.0 mg/dL Aspartate Amino Transferase 17 15-37 U/L Alanine Aminotransferase 29 16-63 U/L Alkaline Phosphatase 83 46-116 U/L Total Protein 7.3 6.4-8.2 g/dL Albumin Level 3.9 3.4-5.0 g/dL Globulin 3.4 Albumin Globulin Ratio 1.1 Performing Lab: see note ML - [facility] LB CBC AUTO DIFF (Not yet revie wed by provider) Interpretation: Performing Lab: Notes/Report: [facility] , White Blood Count 3.6 4.0-11.0 10 3/uL Red Blood Count 4.60 4.70-6.10 10 6/uL Hemoglobin 14.6 14.0-18.0 g/dL Hematocrit 42.6 42.0-54.0 % Mean Corpuscular Volume 92.6 80.0-94.0 fL Mean Corpuscular Hemoglobin 31.7 25.9-34.0 pg Mean Corpuscular HGB Conc 34.3 29.9-35.2 g/dL Red Cell Distribution Width 13.2 11.0-15.0 % Platelet Count 126 150-450 10 3/uL Mean Platelet Volume 8.8 9.5-13.5 fL Neutrophils Percent Auto 65.2 43.0-75.0 % Lymphocytes Percent Auto 24.2 20.5-60.0 % Monocytes Percent Auto 7.4 1.7-12.0 % Eosinophils Percent Auto 1.9 0.9-7.0 % Basophils Percent Auto 0.5 0.2-2.0 % Immature Granulocytes Pct Auto 0.8 0.0-0.5 % Neutrophils Absolute Auto 2.4 1.4-6.5 10 3/uL Lymphocytes Absolute Auto 0.9 1.2-3.8 10 3/uL Monocytes Absolute Auto 0.3 0.3-0.8 10 3/uL Eosinophils Absolute Auto 0.1 0.0-0.7 10 3/uL Basophils Absolute Auto 0.0 0.0-0.1 10 3/uL Immature Granulocytes Abs Auto 0.03 0.00-0.03 10 3/uL Performing Lab: see note ML - [facility] LB FERRITIN (Not yet reviewed b y provider) Interpretation: Performing Lab: Notes/Report: [facility] , Ferritin 138.0 26.0-388.0 ng/mL Performing Lab: see note ML - [facility] LB IRON AND TIBC (Not yet revie wed by provider) Interpretation: Performing Lab: Notes/Report: [facility] , Iron 109.0 65.0-175.0 ug/dL Total Iron Binding Capacity 308.0 250.0-450.0 u g/dL Percent Iron Saturation 35.4 Performing Lab: see note ML - [facility] LB IRON AND TIBC (Not yet revie wed by provider) Interpretation: Performing Lab: Notes/Report: [facility] , Iron 107.0 65.0-175.0 ug/dL Total Iron Binding Capacity 336.0 250.0-450.0 u g/dL Percent Iron Saturation 31.8 Performing Lab: see note ML - [facility] LB FERRITIN (Not yet reviewed b y provider) Interpretation: Performing Lab: Notes/Report: [facility] , Ferritin 134.0 26.0-388.0 ng/mL Performing Lab: see note ML - [facility] LB PROF 14(COMP METB) (Not yet reviewed by provider) Interpretation: Performing Lab: Notes/Report: [facility] , Sodium 139 136-145 mmol/L Potassium 4.2 3.5-5.1 mmol/L Chloride 103 98-107 mmol/L Carbon Dioxide 24.8 21.0-32.0 mmol/L Anion Gap 15.4 Glucose 109 74-106 mg/dL Blood Urea Nitrogen 16.0 7.0-18.0 mg/dL Creatinine 1.19 0.70-1.30 mg/dL Estimated GFR ( Zakia >60 >=60 mL/mi n/1.73m 2 Estimated GFR (Non- Anayeli >60 >=60 mL/mi n/1.73m 2 BUN Creatinine Ratio 13.4 Calcium 9.2 8.5-10.1 mg/dL Bilirubin Total 0.9 0.2-1.0 mg/dL Aspartate Amino Transferase 18 15-37 U/L Alanine Aminotransferase 34 16-63 U/L Alkaline Phosphatase 81 46-116 U/L Total Protein 7.3 6.4-8.2 g/dL Albumin Level 4.0 3.4-5.0 g/dL Globulin 3.3 Albumin Globulin Ratio 1.2 Performing Lab: see note ML - [facility] LB Reason For Referral No Information Encounters Encounter Location Date Provider Diagnosis [facility] On[facility] [address] [place] [address] [facility] [address] [place] [facility] [address] 02/25/2024 Peggy [facility] [address] [place] [address] 07/14/2024 Peggy [facility] [address] [place] [address] 04/21/2024 Peggy Rivas Plan Of Treatment Pending Test Test Name Order Date CBC AUTO DIFF 12/10/2023 CBC AUTO DIFF 01/07/2024 CBC AUTO DIFF 01/17/2024 CBC AUTO DIFF 02/13/2024 CBC AUTO DIFF 04/14/2024 CBC AUTO DIFF 07/07/2024 CBC AUTO DIFF 10/20/2024 FERRITIN 10/20/2024 FERRITIN 04/14/2024 FERRITIN 07/07/2024 FERRITIN 02/13/2024 FERRITIN 01/03/2024 FERRITIN 01/30/2024 FERRITIN 01/17/2024 FERRITIN 12/05/2023 FERRITIN 12/10/2023 FERRITIN 12/20/2023 IRON AND TIBC 01/03/2024 IRON AND TIBC 12/20/2023 IRON AND TIBC 12/05/2023 IRON AND TIBC 12/10/2023 IRON AND TIBC 01/30/2024 IRON AND TIBC 01/17/2024 IRON AND TIBC 02/13/2024 IRON AND TIBC 04/14/2024 IRON AND TIBC 07/07/2024 IRON AND TIBC 10/20/2024 PROF 14(COMP METB) 10/20/2024 PROF 14(COMP METB) 07/07/2024 PROF 14(COMP METB) 12/10/2023 PROF CHEM 8 (BAS METB) 04/14/2024 Next Appt Details Provider Name:Peggy Rivas , 03/30/2025 02:30:00 PM, [address] [place], [address], Insurance Providers Payer Name Payer Address Payer Phone Subscriber Number Group Number Insured Name Patient Relationship to Insured Coverage Start Date Coverage End Date [employer] MED[employer] ADV PLAN [address] [address] [place] [address] [id number] Yuri No Self - patient is the insured 2
--- NOTE | 2025-02-15 15:41 | XR_ITS ---
The [address] [address] Patient Name: MICHEAL CAMPA MRN: [id number] date: 1955 Sex: M Assigned Patient Location: ED.MAIN Current Patient Location: ED.MAIN Accession/Order Number: [id number] Exam Date: 02/15/2025 16:43 Report Date: 02/15/2025 16:44 At the request of: MARINA COOPER MD Procedure: XR chest 2V XR chest 2V 02/15/2025 4:35 PM SIGNS AND SYMPTOMS: ^seizure , episodes of altered mental status PROTOCOL: Frontal and lateral radiographs of the chest COMPARISON: None FINDINGS: The trachea is midline. Atherosclerotic changes are present in the thoracic aorta. The heart and mediastinal structures are within normal limits. The lung parenchyma is clear. The bony thorax is intact. Degenerative changes are present in the thoracic spine. XR/XR chest 2V IMPRESSION: No acute cardiopulmonary pathology. Impression dictated by: Kurt Graham M.D. 02/15/2025 4:44 PM Dictation Location: [facility] Electronically authenticated by: [id number] Y Date: 02/15/2025 16:44
--- NOTE | 2025-02-15 15:41 | CT_ITS ---
The [address] [address] Patient Name: MICHEAL CAMPA MRN: [id number] date: 1955 Sex: M Assigned Patient Location: ED.MAIN Current Patient Location: ED.MAIN Accession/Order Number: [id number] Exam Date: 02/15/2025 16:41 Report Date: 02/15/2025 16:43 At the request of: MARINA COOPER MD Procedure: CT head/brain wo con CT head/brain wo con 02/15/2025 4:30 PM SIGNS AND SYMPTOMS: ^seizure vs tia, episodes of altered mental status TECHNIQUE:Multi-detector CT axial slices of the brain were obtained without IV contrast. CT was performed with one or more of the following dose reduction techniques: Automated exposure control, adjustment of the mA and/or kV according to patient size, or use of iterative reconstruction technique. COMPARISON: None. FINDINGS: There is no shift of the midline structures, acute intracranial bleeding, mass effects, or evidence of acute ischemia. Calcifications are present along the falx. Atherosclerotic changes are noted in the intracranial segments of the internal carotid arteries. There is mild periventricular white matter hypoattenuation. There is mild age-related cortical atrophy. The ventricular system is normal in size. The brainstem and the cerebellum are unremarkable. The visualized intraorbital contents, the visualized paranasal sinuses, and the infratemporal soft tissues show no acute abnormality. The osseous structures in the skull base and the calvarium show no abnormality. CT/CT head/brain wo con IMPRESSION: No acute intracranial pathology. Chronic age-related neurodegenerative changes are noted as above. Impression dictated by: Kurt Graham M.D. 02/15/2025 4:43 PM Dictation Location: [place] [address] Electronically authenticated by: [id number] Y Date: 02/15/2025 16:43
--- NOTE | 2025-02-15 15:41 | ECG_ITS ---
The [facility] Test Date: 2025-02-15 Pat Name: MICHEAL CAMPA Department: Room: - Gender: Male [employer]: : 1955 Requested By: [id number] Order Number: [id number] Reading MD: ISA HORNER M.D. Measurements Intervals [place] Rate: 61 P: 26 CT: 176 QRS: -4 QRSD: 94 T: 19 QT: 410 QTc: 414 Interpretive Statements 1100 Sinus rhythm [address] depression [address] & [place] abnormality Abnormal ECG No previous ECG available for comparison Electronically Signed On 02-15-2025 18:24:42 EDT by ISA HORNER M.D.
--- NOTE | 2025-02-15 15:43 | ED.GENADUL1 ---
HPI HPI - General Adult General Chief complaint: Dizziness Stated complaint: DIZZINESS Time Seen by Provider: 02/15/25 15:40 Source: patient Mode of arrival: ambulance Limitations: no limitations Related Data Home Medications ?Medication ?Instructions ?Recorded ?Confirmed sertraline 100 mg tablet mg 12/20/23 Allergies Allergy/AdvReac Type Severity Reaction Status Date / Time Penicillins Allergy Unknown Verified 02/15/25 15:17 PFSH PFSH Social History Little interest or pleasure in doing things: not at all Feeling down, depressed, or hopeless: not at all Exam Constitutional Vital Signs, click to edit/add: Last Vital Signs Temp 98.4 F 02/15/25 15:12 Pulse 63 02/15/25 15:12 Resp 18 02/15/25 15:12 BP 144/83 H 02/15/25 15:12 Pulse Ox 97 02/15/25 15:12 O2 Del Method Room Air 02/15/25 15:12 Course Vital Signs Vital signs: Vital Signs Temperature 98.4 F 02/15/25 15:12 Pulse Rate 63 02/15/25 15:12 Respiratory Rate 18 02/15/25 15:12 Blood Pressure 144/83 H 02/15/25 15:12 Pulse Oximetry 97 02/15/25 15:12 Oxygen Delivery Method Room Air 02/15/25 15:12 Temperature 98.4 F 02/15/25 15:12 Pulse Rate 63 02/15/25 15:12 Respiratory Rate 18 02/15/25 15:12 Blood Pressure 144/83 H 02/15/25 15:12 Pulse Oximetry 97 02/15/25 15:12 Oxygen Delivery Method Room Air 02/15/25 15:12 Medical Decision Making ECG Data Attestation: I personally reviewed and interpreted this ECG as follows: (EKG interpretation. Normal sinus rhythm at 65 beats a minute. Normal axis deviation. No acute ST elevation, no acute ectopy. QTc of 414.) Discharge Plan Discharge Chief Complaint: Dizziness Prescriptions / Home Meds: No Action sertraline 100 mg tablet Print Language: Italian Referrals: Han Diaz DO [Primary Care Provider, Internal Medicine] - 1 week
[2025-02-15 16:25] LABS: Basophils Percent Auto 0.4 % (0.2-2.0); Eosinophils Percent Auto 0.8 % (0.9-7.0); Hematocrit 40.6 % (42.0-54.0); Hemoglobin 14.2 g/dL (14.0-18.0); Immature Granulocytes Abs Auto 0.02 10^3/uL (0.00-0.03); Immature Granulocytes Pct Auto 0.4 % (0.0-0.5); Lymphocytes Absolute Auto 0.8 10^3/uL (1.2-3.8); Lymphocytes Percent Auto 16.9 % (20.5-60.0); Mean Corpuscular Hemoglobin 32.3 pg (25.9-34.0); Mean Corpuscular Volume 92.3 fL (80.0-94.0); Mean Platelet Volume 9.2 fL (9.5-13.5); Monocytes Absolute Auto 0.3 10^3/uL (0.3-0.8); Monocytes Percent Auto 6.8 % (1.7-12.0); Neutrophils Absolute Auto 3.5 10^3/uL (1.4-6.5); Neutrophils Percent Auto 74.7 % (43.0-75.0); Platelet Count 117 10^3/uL (150-450); Red Cell Distribution Width 12.9 % (11.0-15.0); White Blood Count 4.7 10^3/uL (4.0-11.0)
[2025-02-15 16:48] LABS: INR 1.02; Partial Thromboplastin Time 25.4 sec (22.3-36.2); Prothrombin Time 10.8 sec (9.0-11.6)
[2025-02-15 16:49] LABS: Alanine Aminotransferase 31 U/L (16-63); Albumin Globulin Ratio 1.3; Albumin Level 4.1 g/dL (3.4-5.0); Alkaline Phosphatase 78 U/L (46-116); Anion Gap 13.3; Aspartate Amino Transferase 20 U/L (15-37); BUN Creatinine Ratio 17.6; Calcium 9.3 mg/dL (8.5-10.1); Carbon Dioxide 26.1 mmol/L (21.0-32.0); Chloride 106 mmol/L (98-107); Estimated GFR (African America >60 (>=60 mL/min/1.73m^2); Estimated GFR (Non-African Ame >60 (>=60 mL/min/1.73m^2); Globulin 3.1 g/dL; Glucose 109 mg/dL (74-106); Potassium 4.4 mmol/L (3.5-5.1); Sodium 141 mmol/L (136-145); Total Protein 7.2 g/dL (6.4-8.2)
[2025-02-15 16:54] LABS: Troponin I High Sensitivity 4.4 pg/mL (4.0-76.1)
[2025-02-15 17:38] LABS: PCO2 VBG 37.5 mmHg (40.0-52.0); pH VBG 7.416 (7.330-7.430)
--- NOTE | 2025-02-15 17:56 | ED.DIZZY1 ---
Documented by User: Rosario Yanes 02/15/25 19:44 HPI - Dizziness General Chief Complaint: Dizziness Stated Complaint: DIZZINESS Time Seen by Provider: 02/15/25 15:40 Source: patient Mode of arrival: ambulance Limitations: no limitations History of Present Illness HPI Narrative: 69-year-old male was brought to the emergency room by squad from Dr. Brant garcia's office. He states he was there for a wellness exam today. Patient spaced out while Dr. Mccabe was doing a neurological exam for how he explains. Patient does not remember if he passed out or just blanked out. He states he had a recent episode of amnesia where he was driving his car around a park here in town and then did not know where he was at. He states that episode occurred approximately 1 month ago. Patient is asymptomatic at this time he is alert and oriented. Denies headache chest pain blurred vision or double vision. patient states he sees Dr Rivas for hemochromotosis. He states he sees them every 6 months. History of recent TIA or stroke. He is alert and oriented x 3 at this time. Related Data Home Medications ?Medication ?Instructions ?Recorded ?Confirmed sertraline 100 mg tablet mg 12/20/23 Allergies Allergy/AdvReac Type Severity Reaction Status Date / Time Penicillins Allergy Unknown Verified 02/15/25 15:17 Review of Systems ROS Status of ROS 10 or more systems reviewed and unremarkable except as noted in history and below PFSH PFSH Social History Little interest or pleasure in doing things: not at all Feeling down, depressed, or hopeless: not at all Exam Narrative Exam Narrative: All Systems are negative except as noted/marked.All systems reviewed and otherwise negative Nurses note and vital signs reviewed and patient is not hypoxic. General: The patient appears well and in no apparent distress. Patient is resting comfortably on cart. Skin: Warm, dry, no pallor noted. There is no rash noted. Head: Normocephalic, atraumatic Eye: Normal conjunctiva, no drainage, EOMI. PERRL Ears, Nose, Mouth, and Throat: oral mucosa is moist. Nares patent. Mouth without vesicles. Ear canals patent. Tm's without Erythema Cardiovascular: Regular Rate and Rhythm Respiratory: Patient is in no distress, no accessory muscle use, lungs are clear to auscultation, no wheezing, rales or rhonchi Back: non-tender, no CVA tenderness bilaterally to percussion. GI: Normal bowel sounds, no tenderness to palpation, no masses appreciated. No rebound, guarding, or rigidity noted. Musculoskeletal: The patient has no evidence of calf tenderness, no pitting edema, symmetrical pulses noted bilaterally Neurological: A&O x4, normal speech Psychiatric: Cooperative Constitutional Vital Signs, click to edit/add: Last Vital Signs Temp 98.4 F 02/15/25 15:12 Pulse 63 02/15/25 15:12 Resp 18 02/15/25 15:12 BP 144/83 H 02/15/25 15:12 Pulse Ox 97 02/15/25 15:12 O2 Del Method Room Air 02/15/25 15:12 Course Vital Signs Vital signs: Vital Signs Temperature 98.4 F 02/15/25 15:12 Pulse Rate 63 02/15/25 15:12 Respiratory Rate 18 02/15/25 15:12 Blood Pressure 144/83 H 02/15/25 15:12 Pulse Oximetry 97 02/15/25 15:12 Oxygen Delivery Method Room Air 02/15/25 15:12 Temperature 98.4 F 02/15/25 15:12 Pulse Rate 63 02/15/25 15:12 Respiratory Rate 18 02/15/25 15:12 Blood Pressure 144/83 H 02/15/25 15:12 Pulse Oximetry 97 02/15/25 15:12 Oxygen Delivery Method Room Air 02/15/25 15:12 MDM - Dizziness MDM Narrative Medical decision making narrative: 69-year-old male was brought to the emergency room by squad from Dr. Brant garcia's office. He states he was there for a wellness exam today. Patient spaced out while Dr. Mccabe was doing a neurological exam for how he explains. Patient does not remember if he passed out or just blanked out. He states he had a recent episode of amnesia where he was driving his car around a park here in town and then did not know where he was at. He states that episode occurred approximately 1 month ago. Patient is asymptomatic at this time he is alert and oriented. Denies headache chest pain blurred vision or double vision. patient states he sees Dr Rivas for hemochromotosis. He states he sees them every 6 months. History of recent TIA or stroke. He is alert and oriented x 3 at this time. Upon arrival to the emergency room IV was established EKG labs and CTA of the head were performed as well as chest x-ray. All were read negative by radiology. Per patient's history from he has doctors appointment earlier today with Dr. Brant garcia it seems that he had had a near syncopal or syncopal event while sitting with Dr. Guo. Dr. Guo sent him here for evaluation. I explained the patient I was concerned for his recent amnesia as well as the episode today. He does have no focal neurological deficits at this time. I explained the patient I would like him to be admitted here to the hospital and he wishes to sign out AGAINST MEDICAL ADVICE stating he feels better. I explained to him that he could have another episode while driving or injure himself or someone else. I told him he could have a vascular event causing . Patient verbalized understand agrees with plan of care and will sign out AGAINST MEDICAL ADVICE. Patient to follow-up all and Dr. Rivas Differential Diagnosis Differential diagnosis: Likely transient cerebral ischemia and other (syncope near syncopal) Medical Records Attestation: I reviewed the patient's medical records. Lab Data Attestation: I reviewed the patient's lab results. Labs: Lab Results 02/15/25 Range/Units 15:55 WBC 4.7 (4.0-11.0) 10^3/uL RBC 4.40 L (4.70-6.10) 10^6/uL Hgb 14.2 (14.0-18.0) g/dL Hct 40.6 L (42.0-54.0) % MCV 92.3 (80.0-94.0) fL MCH 32.3 (25.9-34.0) pg MCHC 35.0 (29.9-35.2) g/dL RDW 12.9 (11.0-15.0) % Plt Count 117 L (150-450) 10^3/uL MPV 9.2 L (9.5-13.5) fL Neut % (Auto) 74.7 (43.0-75.0) % Lymph % (Auto) 16.9 L (20.5-60.0) % [place] % (Auto) 6.8 (1.7-12.0) % Eos % (Auto) 0.8 L (0.9-7.0) % Baso % (Auto) 0.4 (0.2-2.0) % Neut # (Auto) 3.5 (1.4-6.5) 10^3/uL Lymph # (Auto) 0.8 L (1.2-3.8) 10^3/uL [place] # (Auto) 0.3 (0.3-0.8) 10^3/uL Eos # (Auto) 0.0 (0.0-0.7) 10^3/uL Baso # (Auto) 0.0 (0.0-0.1) 10^3/uL Abs Immat Gran (auto) 0.02 (0.00-0.03) 10^3/uL Imm/Tot Granulo (auto) 0.4 (0.0-0.5) % PT 10.8 (9.0-11.6) sec INR 1.02 APTT 25.4 (22.3-36.2) sec VBG pH 7.416 (7.330-7.430) VBG pCO2 37.5 L (40.0-52.0) mmHg Sodium 141 (136-145) mmol/L Potassium 4.4 (3.5-5.1) mmol/L Chloride 106 (98-107) mmol/L Carbon Dioxide 26.1 (21.0-32.0) mmol/L Anion Gap 13.3 BUN 18.0 (7.0-18.0) mg/dL Creatinine 1.02 (0.70-1.30) mg/dL Est GFR ( Amer) >60 (>=60 mL/min/1.73m^2) Est GFR (Non-Af Amer) >60 (>=60 mL/min/1.73m^2) BUN/Creatinine Ratio 17.6 Glucose 109 H (74-106) mg/dL Calcium 9.3 (8.5-10.1) mg/dL Total Bilirubin 1.0 (0.2-1.0) mg/dL AST 20 (15-37) U/L ALT 31 (16-63) U/L Alkaline Phosphatase 78 (46-116) U/L Troponin I High Sens 4.4 (4.0-76.1) pg/mL Total Protein 7.2 (6.4-8.2) g/dL Albumin 4.1 (3.4-5.0) g/dL Globulin 3.1 g/dL Albumin/Globulin Ratio 1.3 Imaging Data Chest x-ray: Radiologist's impression: ITS Impressions Chest X-Ray 02/15/25 15:41 IMPRESSION: No acute cardiopulmonary pathology. Impression dictated by: Kurt Graham M.D. 02/15/2025 4:44 PM Dictation Location: [employer] Electronically authenticated by: [id number] Y Date: 02/15/2025 16:[address] 02/15/25 15:41 IMPRESSION: No acute intracranial pathology. Chronic age-related neurodegenerative changes are noted as above. Impression dictated by: Kurt Graham M.D. 02/15/2025 4:43 PM Dictation Location: [employer] Electronically authenticated by: [id number] Y Date: 02/15/2025 16:43 ECG Data Interpretation: 1517 EKG shows a normal sinus rhythm with a rate of 60 bpm [place] interval 176 ms QRS duration 94 ms, minimal ST depression in leads V3 4 and 5 no comparison EKGs, no STEMI Discharge Plan Discharge Stand Alone Forms: Portal Instructions Chief Complaint: Dizziness Clinical Impression: Dizziness, Near syncope, Confusion, Left against medical advice, Unresponsive episode Patient Disposition: Left Against Medical Advice Time of Disposition Decision: 18:02 Condition: Fair Mode of Transportation: Private Vehicle Prescriptions / Home Meds: No Action sertraline 100 mg tablet Print Language: Sierra Leonean Instructions: Near Syncope (ED), Altered Mental Status (ED), Dizziness (ED) Additional Instructions: Please return back to the ER if you change your mind, agreed to admission to the hospital, or have any other unresponsive or confusion episodes immediately Referrals: Peggy Rivas MD [Physician] - 1 week Han Garcia DO [Primary Care Provider, Internal Medicine] - 1 week Discharge Date/Time: 02/15/25 18:17 Documented by User: Barry Chowdhury MD 02/15/25 21:00 HPI - Dizziness General Chief Complaint: Dizziness Stated Complaint: DIZZINESS Time Seen by Provider: 02/15/25 15:40 Related Data Home Medications ?Medication ?Instructions ?Recorded ?Confirmed sertraline 100 mg tablet mg 12/20/23 Allergies Allergy/AdvReac Type Severity Reaction Status Date / Time Penicillins Allergy Unknown Verified 02/15/25 15:17 PFSH PFSH Social History Little interest or pleasure in doing things: not at all Feeling down, depressed, or hopeless: not at all Exam Constitutional Vital Signs, click to edit/add: Last Vital Signs Temp 98.4 F 02/15/25 15:12 Pulse 63 02/15/25 15:12 Resp 18 02/15/25 15:12 BP 144/83 H 02/15/25 15:12 Pulse Ox 97 02/15/25 15:12 O2 Del Method Room Air 02/15/25 15:12 Course Vital Signs Vital signs: Vital Signs Temperature 98.4 F 02/15/25 15:12 Pulse Rate 63 02/15/25 15:12 Respiratory Rate 18 02/15/25 15:12 Blood Pressure 144/83 H 02/15/25 15:12 Pulse Oximetry 97 02/15/25 15:12 Oxygen Delivery Method Room Air 02/15/25 15:12 Temperature 98.4 F 02/15/25 15:12 Pulse Rate 63 02/15/25 15:12 Respiratory Rate 18 02/15/25 15:12 Blood Pressure 144/83 H 02/15/25 15:12 Pulse Oximetry 97 02/15/25 15:12 Oxygen Delivery Method Room Air 02/15/25 15:12 MDM - Dizziness MDM Narrative Medical decision making narrative: 69-year-old male was brought to the emergency room by squad from Dr. Brant garcia's office. He states he was there for a wellness exam today. Patient spaced out while Dr. Mccabe was doing a neurological exam for how he explains. Patient does not remember if he passed out or just blanked out. He states he had a recent episode of amnesia where he was driving his car around a park here in town and then did not know where he was at. He states that episode occurred approximately 1 month ago. Patient is asymptomatic at this time he is alert and oriented. Denies headache chest pain blurred vision or double vision. patient states he sees Dr Rivas for hemochromotosis. He states he sees them every 6 months. History of recent TIA or stroke. He is alert and oriented x 3 at this time. Upon arrival to the emergency room IV was established EKG labs and CTA of the head were performed as well as chest x-ray. All were read negative by radiology. Per patient's history from he has doctors appointment earlier today with Dr. Brant garcia it seems that he had had a near syncopal or syncopal event while sitting with Dr. Guo. Dr. Guo sent him here for evaluation. I explained the patient I was concerned for his recent amnesia as well as the episode today. He does have no focal neurological deficits at this time. I explained the patient I would like him to be admitted here to the hospital and he wishes to sign out AGAINST MEDICAL ADVICE stating he feels better. I explained to him that he could have another episode while driving or injure himself or someone else. I told him he could have a vascular event causing . Patient verbalized understand agrees with plan of care and will sign out AGAINST MEDICAL ADVICE. Patient to follow-up all and Dr. Evelyn CHOWDHURY notes below:: Dr Chowdhury had a 15 minute discussion with patient before he signed an left AGAINST MEDICAL ADVICE. The risk and benefits of leaving AGAINST MEDICAL ADVICE was discussed with Dr. Chowdhury and the patient. Patient has no headache. Patient NIH is 0 at discharge, patient ANO x 3, GCS of 15. Patient has a functional decision making capacity to leave AGAINST MEDICAL ADVICE. Patient understands that he very well could be causing a adverse effect to him or somebody else if he would have another unresponsive moment, where he may put himself or others in danger. Patient states that You cannot predict that happening again which is correct, but the concern is there and this is why I am recommending patient be admitted to the hospital along with Rosario Yanes PA-C recommending patient be admitted to the hospital. Patient understands he could get in a car accident and kill himself or somebody else. Patient understands that he could get lost and not remember where he is. Patient is aware that I did call Dr. Garcia and patient is to call Dr. Garcia office tomorrow to follow-up and be referred to a specialist including neurology as indicated. Patient has no symptoms. Patient states that because were not finding anything positive on the test he is leaving. Patient has a functional decision making capacity to leave AGAINST MEDICAL ADVICE. Shared decision making was done. Patient is very clear and understands the absolute recommendation that patient needs admitted to the hospital for myself and Rosario Yanes PA-C. Patient declines. Patient was pleasant. Lab Data Labs: Lab Results 02/15/25 Range/Units 15:55 WBC 4.7 (4.0-11.0) 10^3/uL RBC 4.40 L (4.70-6.10) 10^6/uL Hgb 14.2 (14.0-18.0) g/dL Hct 40.6 L (42.0-54.0) % MCV 92.3 (80.0-94.0) fL MCH 32.3 (25.9-34.0) pg MCHC 35.0 (29.9-35.2) g/dL RDW 12.9 (11.0-15.0) % Plt Count 117 L (150-450) 10^3/uL MPV 9.2 L (9.5-13.5) fL Neut % (Auto) 74.7 (43.0-75.0) % Lymph % (Auto) 16.9 L (20.5-60.0) % [place] % (Auto) 6.8 (1.7-12.0) % Eos % (Auto) 0.8 L (0.9-7.0) % Baso % (Auto) 0.4 (0.2-2.0) % Neut # (Auto) 3.5 (1.4-6.5) 10^3/uL Lymph # (Auto) 0.8 L (1.2-3.8) 10^3/uL [place] # (Auto) 0.3 (0.3-0.8) 10^3/uL Eos # (Auto) 0.0 (0.0-0.7) 10^3/uL Baso # (Auto) 0.0 (0.0-0.1) 10^3/uL Abs Immat Gran (auto) 0.02 (0.00-0.03) 10^3/uL Imm/Tot Granulo (auto) 0.4 (0.0-0.5) % PT 10.8 (9.0-11.6) sec INR 1.02 APTT 25.4 (22.3-36.2) sec VBG pH 7.416 (7.330-7.430) VBG pCO2 37.5 L (40.0-52.0) mmHg Sodium 141 (136-145) mmol/L Potassium 4.4 (3.5-5.1) mmol/L Chloride 106 (98-107) mmol/L Carbon Dioxide 26.1 (21.0-32.0) mmol/L Anion Gap 13.3 BUN 18.0 (7.0-18.0) mg/dL Creatinine 1.02 (0.70-1.30) mg/dL Est GFR ( Amer) >60 (>=60 mL/min/1.73m^2) Est GFR (Non-Af Amer) >60 (>=60 mL/min/1.73m^2) BUN/Creatinine Ratio 17.6 Glucose 109 H (74-106) mg/dL Calcium 9.3 (8.5-10.1) mg/dL Total Bilirubin 1.0 (0.2-1.0) mg/dL AST 20 (15-37) U/L ALT 31 (16-63) U/L Alkaline Phosphatase 78 (46-116) U/L Troponin I High Sens 4.4 (4.0-76.1) pg/mL Total Protein 7.2 (6.4-8.2) g/dL Albumin 4.1 (3.4-5.0) g/dL Globulin 3.1 g/dL Albumin/Globulin Ratio 1.3 Imaging Data Chest x-ray: Radiologist's impression: ITS Impressions Chest X-Ray 02/15/25 15:41 IMPRESSION: No acute cardiopulmonary pathology. Impression dictated by: Kurt Graham M.D. 02/15/2025 4:44 PM Dictation Location: [employer] Electronically authenticated by: [id number] Y Date: 02/15/2025 16:[address] 02/15/25 15:41 IMPRESSION: No acute intracranial pathology. Chronic age-related neurodegenerative changes are noted as above. Impression dictated by: Kurt Graham M.D. 02/15/2025 4:43 PM Dictation Location: [employer] Electronically authenticated by: [id number] Y Date: 02/15/2025 16:43 Discharge Plan Discharge Stand Alone Forms: Portal Instructions Chief Complaint: Dizziness Clinical Impression: Dizziness, Near syncope, Confusion, Left against medical advice, Unresponsive episode Patient Disposition: Left Against Medical Advice Time of Disposition Decision: 18:02 Condition: Fair Mode of Transportation: Private Vehicle Prescriptions / Home Meds: No Action sertraline 100 mg tablet Print Language: [place] Leonean Instructions: Near Syncope (ED), Altered Mental Status (ED), Dizziness (ED) Additional Instructions: Please return back to the ER if you change your mind, agreed to admission to the hospital, or have any other unresponsive or confusion episodes immediately Referrals: Peggy Rivas MD [Physician] - 1 week Han Garcia DO [Primary Care Provider, Internal Medicine] - 1 week Discharge Date/Time: 02/15/25 18:17
== END 2025-02-15 18:17 | disposition left against medical advice (07) ==
PROVIDERS: Emergency Provider Emergency Medicine; PCP Internal Medicine
DX: R42 Dizziness and giddiness (principal); Z53.29 Procedure and treatment not carried out because of patient's decision for other reasons; R55 Syncope and collapse; R41.0 Disorientation, unspecified; R40.4 Transient alteration of awareness
CPT/HCPCS: 36415; 70450; 71046; 80053; 81001; 82800; 84484; 85025; 85610; 85730; 93005; 99285

== ENCOUNTER 2025-03-22 13:47 | Outpatient (OUT) | payer MEDICARE, SELFPAY ==
--- OUTSIDE RECORDS SUMMARY | 2024-04-21 10:30 | XMS_ITS ---
Author Organization [facility] [place] Address [address] [place] [address] Care Team Providers Care Professional Caster Name Role Phone Han Diaz DO Primary Care Provider Peggy Tinajero [phone] REASON FOR VISIT MD Encounters Encounter Location Date Provider Diagnosis [facility] [address] [place] [address] 04/21/2024 Peggy Rivas Plan Of Treatment Next Appt Details Provider Name:Peggy Rivas , 03/30/2025 02:30:00 PM, [address] [place], [address], Progress Notes * Yuri NO RDOB:[birth year] (69 yo M)Acc No.[id number]:04/21/2024 UNLOCKED PROGRESS NOTE Progress Notes Patient: Shira Yuri ENAMORADO Provider: Jensen Rivas M.D. :1955 A ge:68 Y S ex:Male Date:04/21/2024 Address:[address], [address] , [place], [id number] Pcp:Han Diaz DO Subjective: * Chief Complaints: * 1 . MD. * Medical History: Objective: * Vitals: Assessment: Plan: * Treatment: * * Electronic signature of Raul Rivas MD, [id number] on 03/22/2025 at 01:51 PM EDT Sign off status: Pending Visit Status: P EN (Pending) * Provider: Jensen Rivas M.D. Date: 0 04/21/2024 Generated for Deloris willis/Luna/Ryan on: 0 03/22/2025 01:51 PM EDT
--- OUTSIDE RECORDS SUMMARY | 2024-07-14 10:30 | XMS_ITS ---
Author Organization [facility] [place] Address [address] [place] [address] Care Team Providers Care Caseworker Name Role Phone Han Diaz DO Primary Care Provider Peggy Tinajero [phone] REASON FOR VISIT MD Encounters Encounter Location Date Provider Diagnosis [facility] [address] [place] [address] 07/14/2024 Peggy Rivas Plan Of Treatment Next Appt Details Provider Name:Peggy Rivas , 03/30/2025 02:30:00 PM, [address] [place], [address], Progress Notes * Yuri NO RDOB:[birth year] (69 yo M)Acc No.[id number]:07/14/2024 UNLOCKED PROGRESS NOTE Progress Notes Patient: Shira Yuri ENAMORADO Provider: Jensen Rivas M.D. :1955 A ge:68 Y S ex:Male Date:07/14/2024 Address:[address], [address] , [place], [place] Pcp:Han Diaz DO Subjective: * Chief Complaints: * 1 . MD. * Medical History: Objective: * Vitals: Assessment: Plan: * Treatment: * * Electronic signature of Raul Rivas MD, [id number] on 03/22/2025 at 01:51 PM EDT Sign off status: Pending Visit Status: Alana STARR (Voice) * Provider: Jensen Rivas M.D. Date: 1 09/13/2023 Generated for Deloris willis/Luna/Ryan on: 0 03/22/2025 01:51 PM EDT
--- OUTSIDE RECORDS SUMMARY | 2024-10-27 10:30 | XMS_ITS ---
Author Organization The [facility] in [place] Address [address] [place] [address] Care Team Providers Care Manager Poker Name Role Phone Han Diaz DO Primary Care Provider Peggy Tinajero [phone] REASON FOR VISIT MD Encounters Encounter Location Date Provider Diagnosis [facility] [address] [place] [address] 10/27/2024 Peggy Rivas Plan Of Treatment Next Appt Details Provider Name:Peggy Rivas , 03/30/2025 02:30:00 PM, [address] [place], [address], Progress Notes * Yuri NO RDOB:[birth year] (69 yo M)Acc No.[id number]:10/27/2024 UNLOCKED PROGRESS NOTE Progress Notes Patient: Shira Yuri ENAMORADO Provider: Jensen Rivas M.D. :1955 A ge:69 Y S ex:Male Date:10/27/2024 Address:[address], [address] , [place], [id number] Pcp:Han Diaz DO Subjective: * Chief Complaints: * 1 . MD. * Medical History: Objective: * Vitals: Assessment: Plan: * Treatment: * * Electronic signature of Raul Rivas MD, [id number] on 03/22/2025 at 01:51 PM EDT Sign off status: Pending Visit Status: A [facility] (Voice) * Provider: Jensen Rivas M.D. Date: 0 10/27/2024 Generated for Deloris willis/Luna/Ryan on: 0 03/22/2025 01:51 PM EDT
--- OUTSIDE RECORDS SUMMARY | 2025-03-22 13:52 | XMS_ITS | Patient Health Record ---
Author Organization [facility] [place] Address [address] [place] [address] Care Team Providers Care Tax Associate Attorney Name Role Phone Han Diaz DO Primary Care Provider Peggy Tinajero Unavailable [phone] Results Component Value Reference Range Notes CBC AUTO DIFF (Not yet revie wed by provider) Interpretation: Performing Lab: Notes/Report: [facility] , White Blood Count 3.6 4.0-11.0 10 [...] Performing Lab: see note ML - [facility] LB FERRITIN (Not yet reviewed b y provider) Interpretation: Performing Lab: Notes/Report: [facility] , Ferritin 117.0 26.0-388.0 ng/mL Performing Lab: see note ML - [facility] LB IRON AND TIBC (Not yet revie wed by provider) Interpretation: Performing Lab: Notes/Report: [facility] , Iron 125.0 65.0-175.0 ug/dL Total Iron Binding Capacity 332.0 250.0-450.0 u g/dL Percent Iron Saturation 37.7 Performing Lab: see note ML - [facility] LB PROF 14(COMP METB) (Not yet reviewed by provider) Interpretation: Performing Lab: Notes/Report: [facility] , Sodium 141 136-145 mmol/L Potassium 4.3 [...] Performing Lab: see note ML - [facility] LB CBC AUTO DIFF (Not yet revie wed by provider) Interpretation: Performing Lab: Notes/Report: [facility] , White Blood Count 3.6 4.0-11.0 10 [...] Performing Lab: see note ML - [facility] LB FERRITIN (Not yet reviewed b y provider) Interpretation: Performing Lab: Notes/Report: [facility] , Ferritin 138.0 26.0-388.0 ng/mL Performing Lab: see note ML - [facility] LB IRON AND TIBC (Not yet revie wed by provider) Interpretation: Performing Lab: Notes/Report: [facility] , Iron 109.0 65.0-175.0 ug/dL Total Iron Binding Capacity 308.0 250.0-450.0 u g/dL Percent Iron Saturation 35.4 Performing Lab: see note ML - [facility] LB IRON AND TIBC (Not yet revie wed by provider) Interpretation: Performing Lab: Notes/Report: [facility] , Iron 107.0 65.0-175.0 ug/dL Total Iron Binding Capacity 336.0 250.0-450.0 u g/dL Percent Iron Saturation 31.8 Performing Lab: see note ML - [facility] LB FERRITIN (Not yet reviewed b y provider) Interpretation: Performing Lab: Notes/Report: [facility] , Ferritin 134.0 26.0-388.0 ng/mL Performing Lab: see note ML - [facility] LB CBC AUTO DIFF (Not yet revie wed by provider) Interpretation: Performing Lab: Notes/Report: [facility] , White Blood Count 3.7 4.0-11.0 10 [...] Performing Lab: see note ML - [facility] LB PROF CHEM 8 (BAS METB) (Not yet reviewed by provider) Interpretation: Performing Lab: Notes/Report: [facility] , Sodium 139 136-145 mmol/L Potassium 4.0 3.5-5.1 mmol/L Chloride 105 98-107 mmol/L Carbon Dioxide 25.9 21.0-32.0 mmol/L Anion Gap 12.1 Glucose 106 74-106 mg/dL Blood Urea Nitrogen 16.0 7.0-18.0 mg/dL Creatinine 1.04 0.70-1.30 mg/dL Estimated GFR ( Zakia >60 >=60 Estimated GFR (Non- Anayeli >60 >=60 BUN Creatinine Ratio 15.4 Calcium 9.1 8.5-10.1 mg/dL Performing Lab: see note ML - [facility] LB PROF 14(COMP METB) (Not yet reviewed by provider) Interpretation: Performing Lab: Notes/Report: [facility] , Sodium 139 136-145 mmol/L Potassium 4.2 [...] 1.2 Performing Lab: see note ML - [facility] LB Reason For Referral No Information Encounters Encounter Location Date Provider Diagnosis [facility] Oncology [address] [place] [address] 10/27/2024 Peggy Rivas [facility] On[facility] [address] [place] [address] [facility] [address] [place] [address] 04/21/2024 Peggy Rivas Plan Of Treatment Pending [...] Rivas , 03/30/2025 02:30:00 PM, [address] [place], [address], Insurance Providers Payer Name Payer Address Payer Phone Subscriber Number Group Number Insured Name Patient Relationship to Insured Coverage Start Date Coverage End Date [employer] AD[employer] PLAN [address] [address] [place] [address] [phone] [id number] Yuri No Self - patient is the insured
[2025-03-22 15:02] LABS: Alanine Aminotransferase 35 U/L (16-63); Albumin Globulin Ratio 1.2; Albumin Level 3.9 g/dL (3.4-5.0); Alkaline Phosphatase 73 U/L (46-116); Anion Gap 13.2; Aspartate Amino Transferase 16 U/L (15-37); Blood Urea Nitrogen 16.0 mg/dL (7.0-18.0); Calcium 8.9 mg/dL (8.5-10.1); Carbon Dioxide 25.8 mmol/L (21.0-32.0); Chloride 105 mmol/L (98-107); Estimated GFR (African America >60 (>=60 mL/min/1.73m^2); Estimated GFR (Non-African Ame >60 (>=60 mL/min/1.73m^2); Globulin 3.3 g/dL; Glucose 104 mg/dL (74-106); Potassium 4.0 mmol/L (3.5-5.1); Sodium 140 mmol/L (136-145); Total Protein 7.2 g/dL (6.4-8.2)
[2025-03-22 15:14] LABS: Hematocrit 40.2 % (42.0-54.0); Hemoglobin 13.8 g/dL (14.0-18.0); Immature Granulocytes Abs Auto 0.00 10^3/uL (0.00-0.03); Immature Granulocytes Pct Auto 0.0 % (0.0-0.5); Lymphocytes Absolute Auto 0.8 10^3/uL (1.2-3.8); Mean Corpuscular HGB Conc 34.3 g/dL (29.9-35.2); Mean Corpuscular Hemoglobin 32.2 pg (25.9-34.0); Mean Corpuscular Volume 93.7 fL (80.0-94.0); Platelet Count 118 10^3/uL (150-450); Red Blood Count 4.29 10^6/uL (4.70-6.10); White Blood Count 3.4 10^3/uL (4.0-11.0)
[2025-03-22 15:17] LABS: Iron 125.0 ug/dL (65.0-175.0); Percent Iron Saturation 41.8 %; Total Iron Binding Capacity 299.0 ug/dL (250.0-450.0)
[2025-03-22 15:31] LABS: Ferritin 166.0 ng/mL (26.0-388.0)
== END 2025-03-22 13:48 | disposition home or self-care (01) ==
LOC: LAB 13:49
PROVIDERS: PCP Internal Medicine; Visit Provider Internal Medicine Hematology & Oncology
DX: R79.89 Other specified abnormal findings of blood chemistry (principal); D69.6 Thrombocytopenia, unspecified; E83.110 Hereditary hemochromatosis; D72.819 Decreased white blood cell count, unspecified; D64.9 Anemia, unspecified
CPT/HCPCS: 36415; 80053; 82728; 83540; 83550; 85025

== ENCOUNTER 2025-03-30 09:01 | Outpatient (RCR) | payer MEDICARE, SELFPAY | END 2025-04-25 23:59 | disposition home or self-care (01) | LOC: HEMC 09:01 | PROVIDERS: PCP Internal Medicine; Visit Provider Internal Medicine Hematology & Oncology | DX: E83.110 Hereditary hemochromatosis (principal); Z87.891 Personal history of nicotine dependence; D72.819 Decreased white blood cell count, unspecified; D69.6 Thrombocytopenia, unspecified; D64.9 Anemia, unspecified; R79.89 Other specified abnormal findings of blood chemistry | CPT/HCPCS: G0463 ==